=== PATIENT | female | born 1955 | race Caucasian/White ===

== ENCOUNTER → 2018-03-22 | Outpatient (CLI) | payer BC ==
--- NOTE | 2018-04-01 10:47 | MM ---
Reason for exam: screening (asymptomatic). Last mammogram was performed 2 years and 2 months ago. History: Patient is postmenopausal and has history of other cancer at age 57. Family history of breast cancer in maternal cousin at age 30 and breast cancer in aunt. Took hormonal contraceptives for 5 years beginning at age 21. Physical Findings: A clinical breast exam by your physician is recommended on an annual basis and results should be correlated with mammographic findings. MG Screening Mammo w CAD Bilateral CC and MLO view(s) were taken. Prior study comparison: February 04, 2016, mammogram, performed at [place]. January 26, 2015, mammogram, performed at [place]. There are scattered fibroglandular densities. Stable benign calcifications. There is no discrete abnormality. No significant changes when compared with prior studies. ASSESSMENT: Benign, BI-RAD 2 RECOMMENDATION: Routine screening mammogram of both breasts in 1 year.
== END | disposition home or self-care (01) ==
LOC: RADMAMWWP 09:54
PROVIDERS: ATTEND Family Medicine
DX: Z12.31 Encounter for screening mammogram for malignant neoplasm of breast (principal)
CPT/HCPCS: 77067

== ENCOUNTER → 2019-07-15 | Outpatient (CLI) | payer BC ==
--- NOTE | 2019-07-16 10:07 | MM ---
Reason for exam: screening (asymptomatic). Last mammogram was performed 1 year and 4 months ago. History: Patient is postmenopausal and has history of other cancer at age 57. Family history of breast cancer in maternal cousin at age 30 and breast cancer in aunt. Took hormonal contraceptives for 5 years beginning at age 21. Physical Findings: A clinical breast exam by your physician is recommended on an annual basis and results should be correlated with mammographic findings. MG 3D Screening Mammo W/Cad Bilateral CC and MLO view(s) were taken. Prior study comparison: March 22, 2018, bilateral MG screening mammo w CAD. February 04, 2016, mammogram, performed at [place]. There are scattered fibroglandular densities. Benign appearing bilateral calcifications. No suspicious abnormality. No significant changes when compared with prior studies. ASSESSMENT: Benign, BI-RAD 2 RECOMMENDATION: Routine screening mammogram of both breasts in 1 year.
== END | disposition home or self-care (01) ==
LOC: RADMAMWWP 08:01
PROVIDERS: ATTEND Family Medicine
DX: Z12.31 Encounter for screening mammogram for malignant neoplasm of breast (principal)
CPT/HCPCS: 77063; 77067

== ENCOUNTER → 2019-11-07 | Outpatient (CLI) | payer BC ==
[2019-11-10 07:55] VITALS: BMI 43.9
== END | disposition home or self-care (01) ==
LOC: DBWHC3 09:06
PROVIDERS: ATTEND Thoracic Surgery (Cardiothoracic Vascular Surgery)
DX: E66.01 Morbid (severe) obesity due to excess calories (principal); E08.621 Diabetes mellitus due to underlying condition with foot ulcer; L97.522 Non-pressure chronic ulcer of other part of left foot with fat layer exposed; F17.210 Nicotine dependence, cigarettes, uncomplicated
CPT/HCPCS: 97802

== ENCOUNTER → 2020-01-01 | Outpatient (CLI) | payer BC ==
--- NOTE | 2020-01-01 16:05 | CT ---
EXAMINATION TYPE: CT chest wo con DATE OF EXAM: 01/01/2020 COMPARISON: 08/03/2010 CT abdomen HISTORY: Hemoptysis, SOB CT DLP: 565.8 mGycm, Automated exposure control for dose reduction was used. CONTRAST: Performed injected with 0 mL of Isovue 300. TECHNIQUE: Axial images were obtained at 5 mm thick sections. Reconstructed images are reviewed on [employer] computer in the coronal plane. FINDINGS: Portion of the thyroid visualized is normal. There is a lobular density within the medial right middle lobe. Appears to measure 5.6 x 3.5 cm. Dumont snow, some postobstructive pneumonia could be involved. No enlarged mediastinal or hilar adenopathy is evident. The ascending aorta diameter at the level o f the main pulmonary artery is 3.4 cm. The main pulmonary artery diameter at the bifurcation is 3.2 cm. Moderate coronary artery calcification is present. Limited CT sections are obtained through the upper abdomen. Left adrenal gland is enlarged at 1.8 cm. This was present 08/03/2010. IMPRESSIONS: 1. A lobular lung mass medial right middle lobe. 2. Recommend PET/CT for additional workup
== END | disposition home or self-care (01) ==
LOC: RADCTMAIN 12:20
PROVIDERS: ATTEND Family Medicine
DX: R91.8 Other nonspecific abnormal finding of lung field (principal); R04.2 Hemoptysis
CPT/HCPCS: 71250

== ENCOUNTER → 2020-03-08 | Outpatient (CLI) | payer BC ==
--- NOTE | 2020-03-08 10:51 | MR ---
EXAMINATION TYPE: MR brain wo/w con DATE OF EXAM: 03/08/2020 COMPARISON: NONE HISTORY: Lung ca, nausea, headaches TECHNIQUE: Multiplanar, multisequence images of the brain and brainstem is performed without and with IV contras t, utilizing 10 mL intravenous Gadavist . FINDINGS: Diffusion weighted images demonstrate no evidence of a recent infarct or other diffusion ab normality. There is no extra-axial fluid collection. There are few scattered foci of T2/FLAIR hyperi ntensity in the periventricular and subcortical white matter, overall mild burden. The ventricular s ystem and cisternal spaces are normal in size and appearance. The brain volume is age appropriate. Midline structures demonstrate normal morphology. The craniocervical junction appears within normal limits. Post contrast images demonstrate no abnormal enhancement. The dural venous sinuses appear pa tent. The visualized sinuses are clear and the globes are intact. IMPRESSION: 1. No MRI evidence of metastasis. No abnormal intracranial metastasis. 2. Mild burden nonspecific white matter change, most commonly on the basis of microangiopathy.
== END | disposition home or self-care (01) ==
LOC: RADMRIMAIN 09:03
PROVIDERS: ATTEND Internal Medicine Hematology & Oncology
DX: R90.89 Other abnormal findings on diagnostic imaging of central nervous system (principal); I73.9 Peripheral vascular disease, unspecified; C34.2 Malignant neoplasm of middle lobe, bronchus or lung
CPT/HCPCS: 70553; A9585

== ENCOUNTER → 2020-05-28 | Outpatient (CLI) | payer BC ==
--- NOTE | 2020-05-28 10:27 | CT ---
EXAMINATION TYPE: CT ChestAbdPelvis w con DATE OF EXAM: 05/28/2020 COMPARISON: 01/01/2020 HISTORY: follow up lung cancer CT DLP: 2240.2 mGycm CONTRAST: CT scan of the chest, abdomen and pelvis is performed with Oral Contrast and with IV Contrast, patien t injected with 80 mL of Isovue 300. CT Chest: LUNGS: Previously noted mass within the medial segment right middle lobe persists although is much sm aller in size and currently measures 4.6 cm x 1.8 cm versus 5.6 cm x 3.5 cm. No additional nodules or masses seen. MEDIASTINUM: Thoracic aorta is of normal caliber. The heart is not enlarged. No evidence for media stinal mass or adenopathy. HILAR STRUCTURES: No evidence for mass. No hilar adenopathy is appreciated. OTHER: No significant abnormality. CONTRAST CT ABDOMEN AND PELVIS FINDINGS: LIVER/GB: Stable small subcentimeter lesion within the periphery of the anterior segment right hepa tic lobe unchanged from prior study. Cholecystectomy clips noted.. Biliary tree is of normal caliber. PANCREAS: No inflammation. No distinct mass. SPLEEN: No splenic enlargement. No lesion seen. ADRENALS: Bilateral stable adrenal nodularity. No thickening. KIDNEYS/BLADDER: No hydronephrosis. No nephrolithiasis. No distinct renal mass. BOWEL: Normal appendix. Normal bowel caliber. No inflammation. GENITAL ORGANS: No gross abnormality. LYMPH NODES: No greater than 1cm abdominal or pelvic lymph nodes are appreciated. AORTA: No significant abnormality. OSSEOUS STRUCTURES: No significant abnormality is seen. OTHER: No significant additional abnormality is seen. IMPRESSION: 1. Lobulated mass within the medial segment right middle lobe persists although is smaller in size. N o new masses or adenopathy present. No evidence for metastatic disease at this time.
== END | disposition home or self-care (01) ==
LOC: RADCTMAIN 08:12
PROVIDERS: ATTEND Internal Medicine Hematology & Oncology
DX: R91.8 Other nonspecific abnormal finding of lung field (principal); C34.2 Malignant neoplasm of middle lobe, bronchus or lung
CPT/HCPCS: 82565; 84520; 71260; 74177; 36415; Q9967

== ENCOUNTER → 2020-05-31 | Outpatient (CLI) | payer BC | END | disposition home or self-care (01) | LOC: CPPFTMAIN 12:38 | PROVIDERS: ATTEND Thoracic Surgery (Cardiothoracic Vascular Surgery) | DX: C34.2 Malignant neoplasm of middle lobe, bronchus or lung (principal); R94.2 Abnormal results of pulmonary function studies | CPT/HCPCS: 94060; 94726; 94729 ==

== ENCOUNTER → 2020-10-15 | Outpatient (CLI) | payer BC ==
--- NOTE | 2020-10-17 11:36 | PE ---
Nuclear medicine PET/CT HISTORY: Lung carcinoma, subsequent Patient received 11 mCi F-18 FDG intravenously and delayed scanning was performed from skull base to the mid thighs. Localization and attenuation correction CT scan was performed. Correlation to prior CT scan 05/28/2020 Chest and neck: There is been interval development of a small right pleural effusion. Atelectatic christa nge seen on prior CT has improved. There is no mediastinal, axillary, or hilar adenopathy. No suspici ous uptake. No cervical or supraclavicular adenopathy. There are coronary artery calcifications. ABDOMEN: There is no evident liver mass. No retroperitoneal adenopathy or adrenal uptake, left adrena l low density mass is again seen. Patient is post cholecystectomy. Uptake along the bowel and stomach is felt likely to be physiologic. No ascites. No pelvic adenopathy. Uterus and adnexal structures st able. Extensive diverticular change noted in the sigmoid colon. Osseous structures show no suspicious uptake. IMPRESSION: Interval development of a small right pleural effusion. No suspicious hypermetabolic upta ke. Interval improvement in aeration in the right middle lobe.
== END | disposition home or self-care (01) ==
LOC: RADPETMAIN 13:17
PROVIDERS: ATTEND Internal Medicine Hematology & Oncology
DX: J90 Pleural effusion, not elsewhere classified (principal); R91.8 Other nonspecific abnormal finding of lung field; C34.81 Malignant neoplasm of overlapping sites of right bronchus and lung
CPT/HCPCS: 78815; A9552

== ENCOUNTER → 2020-11-16 | Outpatient (CLI) | payer BC ==
--- NOTE | 2020-11-18 10:09 | MM ---
Reason for exam: screening (asymptomatic). Last mammogram was performed 1 year and 4 months ago. History: Patient is postmenopausal and has history of other cancer at age 57. Family history of breast cancer in maternal cousin at age 30 and breast cancer in aunt. Took hormonal contraceptives for 5 years beginning at age 21. Physical Findings: A clinical breast exam by your physician is recommended on an annual basis and results should be correlated with mammographic findings. MG 3D Screening Mammo W/Cad Bilateral CC and MLO view(s) were taken. Prior study comparison: July 15, 2019, bilateral MG 3d screening mammo w/cad. March 22, 2018, bilateral MG screening mammo w CAD. There are scattered fibroglandular densities. Previous mammotome biopsy in the left breast. No significant changes when compared with prior studies. ASSESSMENT: Benign, BI-RAD 2 RECOMMENDATION: Routine screening mammogram of both breasts in 1 year.
== END | disposition home or self-care (01) ==
LOC: RADMAMWWP 09:11
PROVIDERS: ATTEND Family Medicine
DX: Z12.31 Encounter for screening mammogram for malignant neoplasm of breast (principal)
CPT/HCPCS: 77063; 77067

== ENCOUNTER 2021-02-17 13:22 | Inpatient (IN) | payer BC ==
[2021-02-17] MEDS ORDERED: ONDANSETRON 4 MG/2 ML VIAL IVP STA (13:49)
[2021-02-17] MEDS ORDERED: ALBUTEROL HFA INHALER INHALATION STA (13:49)
--- NOTE | 2021-02-17 13:53 | ED ---
SOB HPI - General Chief Complaint: Shortness of Breath Stated Complaint: SOB,Fever,cough Time Seen by Provider: 02/17/21 13:36 Source: patient Mode of arrival: wheelchair Limitations: no limitations - History of Present Illness Initial Comments: 65-year-old female past medical history of lung cancer, in remission with previous lobectomy x2 who presents emergency room for shortness of breath. States he's had symptoms present for the past 2 weeks. Her did test positive for Covid. States that 2 days ago she was tested at [facility] for Covid however has yet to get results. Reports to a nonproductive cough, nausea and diarrhea. Denies any chest pain. No previous history of cardiac disease. Did require home oxygen after her surgery last year however states she has not used home oxygen at several months. Denies any lower extremity swelling. No history of DVT or PE. Denies any fevers. No other alleviating, precipitating or modifying factors - Related Data Home Medications Medication Instructions Recorded Confirmed Aspirin 81 mg PO HS 02/17/21 02/17/21 Cholecalciferol (Vitamin D3) 125 mcg PO DAILY 02/17/21 02/17/21 [Vitamin D3 (5000 Iu)] Hydrocortisone [Cortef] 10 mg PO BID@0800,1500 02/17/21 02/17/21 Metoprolol Tartrate [Lopressor] 50 mg PO BID 02/17/21 02/17/21 Pravastatin Sodium [Pravachol] 80 mg PO HS 02/17/21 02/17/21 metFORMIN HCL [Glucophage] 500 mg PO BID 02/17/21 02/17/21 Allergies Allergy/AdvReac Type Severity Reaction Status Date / Time codeine AdvReac Unknown Verified 02/17/21 15:33 tetracycline AdvReac Unknown Verified 02/17/21 15:33 Review of Systems ROS Statement: Those systems with pertinent positive or pertinent negative responses have been documented in the HPI. ROS Other: All systems not noted in ROS Statement are negative. Past Medical History Past Medical History: Hyperlipidemia, Hypertension Additional Past Medical History / Comment(s): lung cancer History of Any Multi-Drug Resistant Organisms: None Reported Past Surgical History: Cholecystectomy, Tonsillectomy, Tubal Ligation Additional Past Surgical History / Comment(s): lung surgery Past Psychological History: No Psychological Hx Reported Smoking Status: Former smoker Past Alcohol Use History: None Reported Past Drug Use History: None Reported General Exam Limitations: no limitations General appearance: alert, in no apparent distress Head exam: Present: atraumatic, normocephalic, normal inspection Eye exam: Present: normal appearance, PERRL, EOMI. Absent: scleral icterus, conjunctival injection, periorbital swelling ENT exam: Present: normal exam, mucous membranes moist Neck exam: Present: normal inspection. Absent: tenderness, meningismus, lymphadenopathy Respiratory exam: Present: normal lung sounds bilaterally, accessory muscle use, other (tachypnia). Absent: respiratory distress, wheezes, rales, rhonchi, stridor Cardiovascular Exam: Present: regular rate, normal rhythm, normal heart sounds. Absent: systolic murmur, diastolic murmur, rubs, gallop, clicks GI/Abdominal exam: Present: soft, normal bowel sounds. Absent: distended, tenderness, guarding, rebound, rigid Extremities exam: Present: normal inspection, full ROM, normal capillary refill. Absent: tenderness, pedal edema, joint swelling, calf tenderness Back exam: Present: normal inspection Neurological exam: Present: alert, oriented X3, CN II-XII intact Psychiatric exam: Present: normal affect, normal mood Skin exam: Present: warm, dry, intact, normal color. Absent: rash Course Vital Signs 02/17/21 02/17/21 02/17/21 13:29 13:39 15:41 Temperature 98.9 F Pulse Rate 74 75 Respiratory 18 24 22 Rate Blood Pressure 117/54 117/70 O2 Sat by Pulse 83 L 95 Oximetry Medical Decision Making - Medical Decision Making Upon arrival patient is placed into room 4. There are history and physical exam is performed. Patient's is hypoxic on room air, saturating 83%. She does require 6 L at this time. Laboratory studies are conducted. Covert swab performed. Laboratory studies are reviewed. D-dimer 1.36. Covert is detected. Chest x-ray demonstrates underlying mid and lower lung infiltrates. I did give the patient a dose of steroids. Albuterol inhaler ordered. Did recommend hospitalization because the patient's hypoxia. Did discuss the case with Veda from pulmonology. I discussed plan with the patient and she does agree. She was taken to the floor in stable condition - Lab Data Result diagrams: 02/18/21 05:30 02/18/21 05:30 Lab Results 02/17/21 02/17/21 02/17/21 Range/Units 14:23 14:23 14:23 WBC 5.1 (3.8-10.6) k/uL RBC 4.70 (3.80-5.40) m/uL Hgb 14.4 (11.4-16.0) gm/dL Hct 42.9 (34.0-46.0) % MCV 91.3 (80.0-100.0) fL MCH 30.6 (25.0-35.0) pg MCHC 33.5 (31.0-37.0) g/dL RDW 13.4 (11.5-15.5) % Plt Count 130 L (150-450) k/uL MPV 8.0 Neutrophils % 58 % Lymphocytes % 34 % Monocytes % 3 % Eosinophils % 0 % Basophils % 1 % Neutrophils # 3.0 (1.3-7.7) k/uL Lymphocytes # 1.8 (1.0-4.8) k/uL Monocytes # 0.2 (0-1.0) k/uL Eosinophils # 0.0 (0-0.7) k/uL Basophils # 0.0 (0-0.2) k/uL PT 9.7 (9.0-12.0) sec INR 0.9 (<1.2) APTT 24.7 (22.0-30.0) sec D-Dimer 1.36 H (<0.60) mg/L FEU Sodium 136 L (137-145) mmol/L Potassium 4.5 (3.5-5.1) mmol/L Chloride 101 (98-107) mmol/L Carbon Dioxide 27 (22-30) mmol/L Anion Gap 8 mmol/L BUN 19 H (7-17) mg/dL Creatinine 1.22 H (0.52-1.04) mg/dL Est GFR (CKD-EPI)AfAm 54 (>60 ml/min/1.73 sqM) Est GFR (CKD-EPI)NonAf 47 (>60 ml/min/1.73 sqM) Glucose 107 H (74-99) mg/dL Plasma Lactic Acid Vinicius (0.7-2.0) mmol/L Calcium 8.7 (8.4-10.2) mg/dL Magnesium 2.3 (1.6-2.3) mg/dL Total Bilirubin 0.5 (0.2-1.3) mg/dL AST 56 H (14-36) U/L ALT 33 (4-34) U/L Alkaline Phosphatase 60 (38-126) U/L Lactate Dehydrogenase 1267 H (313-618) U/L C-Reactive Protein 75.9 H (<10.0) mg/L Total Protein 6.6 (6.3-8.2) g/dL Albumin 3.7 (3.5-5.0) g/dL Procalcitonin (0.02-0.09) ng/mL Coronavirus (PCR) (Not Detectd) 02/17/21 02/17/21 02/17/21 Range/Units 14:23 14:23 14:23 WBC (3.8-10.6) k/uL RBC (3.80-5.40) m/uL Hgb (11.4-16.0) gm/dL Hct (34.0-46.0) % MCV (80.0-100.0) fL MCH (25.0-35.0) pg MCHC (31.0-37.0) g/dL RDW (11.5-15.5) % Plt Count (150-450) k/uL MPV Neutrophils % % Lymphocytes % % Monocytes % % Eosinophils % % Basophils % % Neutrophils # (1.3-7.7) k/uL Lymphocytes # (1.0-4.8) k/uL Monocytes # (0-1.0) k/uL Eosinophils # (0-0.7) k/uL Basophils # (0-0.2) k/uL PT (9.0-12.0) sec INR (<1.2) APTT (22.0-30.0) sec D-Dimer (<0.60) mg/L FEU Sodium (137-145) mmol/L Potassium (3.5-5.1) mmol/L Chloride (98-107) mmol/L Carbon Dioxide (22-30) mmol/L Anion Gap mmol/L BUN (7-17) mg/dL Creatinine (0.52-1.04) mg/dL Est GFR (CKD-EPI)AfAm (>60 ml/min/1.73 sqM) Est GFR (CKD-EPI)NonAf (>60 ml/min/1.73 sqM) Glucose (74-99) mg/dL Plasma Lactic Acid Vinicius 1.2 (0.7-2.0) mmol/L Calcium (8.4-10.2) mg/dL Magnesium (1.6-2.3) mg/dL Total Bilirubin (0.2-1.3) mg/dL AST (14-36) U/L ALT (4-34) U/L Alkaline Phosphatase (38-126) U/L Lactate Dehydrogenase (313-618) U/L C-Reactive Protein (<10.0) mg/L Total Protein (6.3-8.2) g/dL Albumin (3.5-5.0) g/dL Procalcitonin 0.17 H (0.02-0.09) ng/mL Coronavirus (PCR) Detected A (Not Detectd) - EKG Data EKG Comments: EKG demonstrates a normal sinus rhythm with a ventricular rate of 69. WA interval 146. QRS E4. QTC 441. No acute ST segment elevations or depressions Disposition Clinical Impression: COVID-19, Hypoxia Disposition: ADMITTED IP TO THIS HOSP Condition: Serious Is patient prescribed a controlled substance at d/c from ED?: No Decision to Admit Reason: Admit from EC Decision Date: 02/17/21 Decision Time: 15:52
--- NOTE | 2021-02-17 14:25 | XR ---
EXAMINATION TYPE: XR chest 1V portable DATE OF EXAM: 02/17/2021 Comparison: None Clinical History: 65 year-old female shortness of breath, Suspected COVID-19 pneumonia Findings: Large patient body habitus cast extensive hazy densities over the lungs. Heart borderline to mildly e nlarged. Mid and lower lung opacities could relate to large body habitus. Given concern for occult pn eumonia, underlying infiltrates are suspected. Impression: Limitations due to the large patient body habitus. Underlying mid and lower lung infiltrates are susp ected.
[2021-02-17] MEDS: DEXAMETHASONE SOD PHOSPHATE 10 MG/ML 1 ML VIAL IV SCH (14:31)
[2021-02-17] MEDS: SODIUM CHLORIDE 0.9% 1,000 ML IV SCH (14:31)
[2021-02-17 14:51] LABS: Basophils % (A) 1 %; Eosinophils % (A) 0 %; HCT 42.9 % (34.0-46.0); HGB 14.4 gm/dL (11.4-16.0); Lymphocytes # (A) 1.8 k/uL (1.0-4.8); Lymphocytes % (A) 34 %; MCH 30.6 pg (25.0-35.0); MCHC 33.5 g/dL (31.0-37.0); MCV 91.3 fL (80.0-100.0); Monocytes # (A) 0.2 k/uL (0-1.0); Monocytes % (A) 3 %; Neutrophils % (A) 58 %; Platelet Count 130 k/uL (150-450); RDW 13.4 % (11.5-15.5); WBC 5.1 k/uL (3.8-10.6)
[2021-02-17 15:03] LABS: Albumin 3.7 g/dL (3.5-5.0); C Reactive Protein 75.9 mg/L (<10.0); Calcium 8.7 mg/dL (8.4-10.2); Magnesium 2.3 mg/dL (1.6-2.3); Potassium 4.5 mmol/L (3.5-5.1); Total Bilirubin 0.5 mg/dL (0.2-1.3); Total Protein 6.6 g/dL (6.3-8.2)
[2021-02-17 15:12] LABS: INR 0.9 (<1.2); Prothrombin Time 9.7 sec (9.0-12.0)
[2021-02-17 15:13] LABS: Partial Thromboplastin Time 24.7 sec (22.0-30.0)
[2021-02-17] MEDS ORDERED: NALOXONE 0.4 MG/ML 1 ML VIAL IV PRN (15:52)
--- NOTE | 2021-02-17 17:42 | P.CNPUL ---
History of Present Illness Consult date: 02/17/21 Requesting physician: Melissa Friedman Reason for consult: dyspnea, hypoxemia, abnormal CXR/CT Chief complaint: Shortness of breath, hypoxemia, cough, nausea and diarrhea History of present illness: This is a 65-year-old white female patient with past medical history of lung cancer diagnosed in February 2020 status post right middle lobe and right lower lobectemy by Dr. Duran at the [facility] last year, followed by chemotherapy. And patient has been in remission since. She is not normally oxygen dependent, she is a former smoker. She follows with Dr. Hawthorne. Does not have a computer system specialist that she goes to on a regular basis, past medical history is positive for hypertension and hyperlipidemia. Patient presented to the emergency department on 02/17/2021 with worsening shortness of breath, nonproductive cough, nausea and diarrhea, she states her symptoms started 2 weeks ago, her has been diagnosed with COVID 19. No chest pain, no lower extremity swelling, no calf tenderness, no fever, chest x-ray shows extensive hazy densities over the lungs, mild cardiomegaly, mid and lower lung opacities suspected underlying infiltrates. COVID 19 [facility] white blood cell count of 5.1, hemoglobin of 14.4, platelet count is 130, d-dimer is 1.36, sodium is 136, the rest of electrolytes were within normal limits, BUN is 19 creatinine is 1.2, LDH was 1267, CRP is 75.9. Currently requiring 6 L of supplemental oxygen, pulse ox is 95%, hemodynamically she is stable, she is afebrile, she feels short of breath especially on exertion, but appears to be in no acute distress. She is receiving 0.9 normal saline at a rate of 75 ML per hour, she was started on dexamethasone milligrams daily Review of Systems All systems: negative Constitutional: Denies chills, Denies fever Eyes: denies blurred vision, denies pain Ears, nose, mouth and throat: Denies headache, Denies sore throat Cardiovascular: Denies chest pain, Denies shortness of breath Respiratory: Reports dyspnea, Denies cough Gastrointestinal: Denies abdominal pain, Denies diarrhea, Denies nausea, Denies vomiting Genitourinary: Denies dysuria, Denies hematuria Musculoskeletal: Denies myalgias Integumentary: Denies pruritus, Denies rash Neurological: Denies numbness, Denies weakness Psychiatric: Denies anxiety, Denies depression Endocrine: Denies fatigue, Denies weight change Past Medical History Past Medical History: Hyperlipidemia, Hypertension Additional Past Medical History / Comment(s): lung cancer History of Any Multi-Drug Resistant Organisms: None Reported Past Surgical History: Cholecystectomy, Tonsillectomy, Tubal Ligation Additional Past Surgical History / Comment(s): lung surgery Past Psychological History: No Psychological Hx Reported Smoking Status: Former smoker Past Alcohol Use History: None Reported Past Drug Use History: None Reported Medications and Allergies Home Medications Medication Instructions Recorded Confirmed Type Aspirin 81 mg PO HS 02/17/21 02/17/21 History Cholecalciferol (Vitamin D3) 125 mcg PO DAILY 02/17/21 02/17/21 History [Vitamin D3 (5000 Iu)] Hydrocortisone [Cortef] 10 mg PO BID@0800,1500 02/17/21 02/17/21 History Metoprolol Tartrate [Lopressor] 50 mg PO BID 02/17/21 02/17/21 History Pravastatin Sodium [Pravachol] 80 mg PO HS 02/17/21 02/17/21 History metFORMIN HCL [Glucophage] 500 mg PO BID 02/17/21 02/17/21 History Allergies Allergy/AdvReac Type Severity Reaction Status Date / Time codeine AdvReac Unknown Verified 02/17/21 15:33 tetracycline AdvReac Unknown Verified 02/17/21 15:33 Physical Exam Vitals: Vital Signs Temp Pulse Resp BP Pulse Ox 02/17/21 15:41 75 22 117/70 95 02/17/21 13:39 24 02/17/21 13:29 98.9 F 74 18 117/54 83 L Intake and Output 02/17/21 02/17/21 02/17/21 06:59 14:59 22:59 Other: Weight 122.47 kg GENERAL EXAM: Alert, very pleasant, 65-year-old white female on 6 L of oxygen a pulse ox of 95% comfortable in no apparent distress. HEAD: Normocephalic/atraumatic. EYES: Normal reaction of pupils, equal size. Conjunctiva pink, sclera white. NOSE: Clear with pink turbinates. THROAT: No erythema or exudates. NECK: No masses, no JVD, no thyroid enlargement, no adenopathy. CHEST: No chest wall deformity. Symmetrical expansion. LUNGS: Equal air entry with diffuse crackles bilaterally CVS: Regular rate and rhythm, normal S1 and S2, no gallops, no murmurs, no rubs ABDOMEN: Soft, nontender. No hepatosplenomegaly, normal bowel sounds, no guarding or rigidity. EXTREMITIES: No clubbing, no edema, no cyanosis, 2+ pulses and upper and lower extremities. MUSCULOSKELETAL: Muscle strength and tone normal. SPINE: No scoliosis or deformity SKIN: No rashes CENTRAL NERVOUS SYSTEM: Alert and oriented -3. No focal deficits, tone is normal in all 4 extremities. PSYCHIATRIC: Alert and oriented -3. Appropriate affect. Intact judgment and insight. Results - Laboratory Findings CBC and BMP: 02/17/21 14:23 02/17/21 14:23 PT/INR, D-dimer PT 9.7 sec (9.0-12.0) 02/17/21 14:23 INR 0.9 (<1.2) 02/17/21 14:23 D-Dimer 1.36 mg/L FEU (<0.60) H 02/17/21 14:23 Abnormal lab findings: Abnormal Labs 02/17/21 02/17/21 02/17/21 14:23 14:23 14:23 Plt Count 130 L D-Dimer 1.36 H Sodium 136 L BUN 19 H Creatinine 1.22 H Glucose 107 H AST 56 H Lactate Dehydrogenase 1267 H C-Reactive Protein 75.9 H Coronavirus (PCR) 02/17/21 14:23 Plt Count D-Dimer Sodium BUN Creatinine Glucose AST Lactate Dehydrogenase C-Reactive Protein Coronavirus (PCR) Detected A - Diagnostic Findings Chest x-ray: report reviewed, image reviewed Assessment and Plan Plan: Assessment: #1. Acute hypoxic respiratory failure related to acute COVID19 pneumonia, onset of symptoms 2 weeks prior to presentation, patient is out of the window for Remdesivir #2. Increased inflammatory markers related to the above #3. Increased d-dimer, possibly related to hypercoagulable state related to acute COVID 19 pneumonia, will follow d-dimer on a daily basis, creatinine is abnormal at this time, we'll consider CT chest if it remains elevated and when creatinine normalizes #4. Underlying COPD, with a baseline FEV1 of 78% predicted, not oxygen dependent at baseline #5. Diabetes mellitus #6. History of lung cancer, status post right middle and right lower lobectomy, patient was diagnosed in February 2020, she had her surgery at [facility], follows with Dr. Hawthorne and patient did have chemotherapy following her surgery #7. Hypertension #8. Hyperlipidemia #9. Former smoker Plan: Continue steroids, continue IV hydration, patient is outside the window for Remdesivir, we'll start the patient on Lovenox 40 mg daily, will follow d-dimer on a daily basis, we'll consider CTA chest once renal profile becomes normal and if d-dimer remains elevated, add vitamins. We'll follow inflammatory markers and chest x-ray continue to follow I performed a history & physical examination of the patient and discussed their management with my nurse practitioner, Veda Gates. I reviewed the nurse practitioner's note and agree with the documented findings and plan of care. L rivera sounds are positive for diminished breath sounds. The findings and the impression was discussed with the patient. I attest to the documentation by the nurse practitioner. Time with Patient: Greater than 30
[2021-02-17] MEDS: ALBUTEROL HFA INHALER INHALATION SCH (20:29)
[2021-02-17] MEDS: METOPROLOL TARTRATE 50 MG TAB PO SCH (20:37)
[2021-02-17] MEDS: ASPIRIN 81 MG PO SCH (20:37)
[2021-02-17] MEDS: PRAVASTATIN SODIUM 80 MG TAB PO SCH (22:11)
[2021-02-18] MEDS: SODIUM CHLORIDE 0.9% 1,000 ML IV SCH ×2 (05:33→14:28)
--- NOTE | 2021-02-18 08:58 | XR ---
EXAMINATION TYPE: XR chest 1V portable DATE OF EXAM: 02/18/2021 COMPARISON: 02/17/2021 HISTORY: Shortness of breath TECHNIQUE: Single frontal view of the chest is obtained. FINDINGS: Bilateral infiltrates are stable with small right effusion. No pneumothorax. Heart size st able. Osseous structures intact. IMPRESSION: Bilateral infiltrates are stable.
[2021-02-18] MEDS ORDERED: DEXAMETHASONE SOD PHOSPHATE 10 MG/ML 1 ML VIAL IV SCH (09:00)
[2021-02-18] MEDS: ALBUTEROL HFA INHALER INHALATION SCH ×4 (09:18→20:53)
[2021-02-18] MEDS: CHOLECALCIFEROL 25 MCG (1000 IU) TABLET PO SCH (09:44)
[2021-02-18] MEDS: HYDROCORTISONE 10 MG TAB PO SCH ×2 (09:45→14:28)
[2021-02-18] MEDS: METOPROLOL TARTRATE 50 MG TAB PO SCH ×2 (09:45→22:22)
[2021-02-18] MEDS: DEXAMETHASONE SOD PHOSPHATE 10 MG/ML 1 ML VIAL IV SCH ×2 (09:45→09:46)
[2021-02-18 11:35] LABS: HCT 47.2 % (37.2-46.3); HGB 14.2 g/dL (12.0-15.0); MCHC 30.1 g/dL (32.0-37.0); MCV 96.5 fL (80.0-97.0); Mean Platelet Volume 10.9 fL (9.5-12.2); Platelet Count 167 X 10*3/uL (140-440); RBC 4.89 X 10*6/uL (4.10-5.20); RDW 13.2 % (11.5-14.5); WBC 6.36 X 10*3/uL (4.50-10.00)
--- NOTE | 2021-02-18 11:57 | P.PN ---
Subjective Progress Note Date: 02/18/21 Principal diagnosis: Acute hypoxic respiratory failure secondary to acute covid 19 pneumonia This is a 65-year-old white female patient with past medical history of lung cancer diagnosed in February 2020 status post right middle lobe and right lower lobectemy by Dr. Duran at the [facility] last year, followed by chemotherapy. And patient has been in remission since. She is not normally oxygen dependent, she is a former smoker. She follows with Dr. Hawthorne. Does not have a network support specialist that she goes to on a regular basis, past medical history is positive for hypertension and hyperlipidemia. Patient presented to the emergency department on 02/17/2021 with worsening shortness of breath, nonproductive cough, nausea and diarrhea, she states her symptoms s tarted 2 weeks ago, her has been diagnosed with COVID 19. No chest pain, no lower extremity swelling, no calf tenderness, no fever, chest x-ray shows extensive hazy densities over the lungs, mild cardiomegaly, mid and lower lung opacities suspected underlying infiltrates. COVID 19 PCR was positive. Patient's labs showed white blood cell count of 5.1, hemoglobin of 14.4, platelet count is 130, d-dimer is 1.36, sodium is 136, the rest of electrolytes were within normal limits, BUN is 19 creatinine is 1.2, LDH was 1267, CRP is 75.9. Currently requiring 6 L of supplemental oxygen, pulse ox is 95%, hemodynamically she is stable, she is afebrile, she feels short of breath especially on exertion, but appears to be in no acute distress. She is receiving 0.9 normal saline at a rate of 75 ML per hour, she was started on dexamethasone milligrams daily Patient was reevaluated today on 02/18/2021, patient is about the same compared to yesterday, remains on 6 L high flow nasal cannula, O2 saturation is 88% to 92%. Patient is sitting at a bedside chair, does not seem to be in any distress. Patient is on the Covid 19 cocktail. And so far she is doing fairly well. CBC is relatively normal. D-dimer is 1.36. Creatinine is slightly elevated at 1.22. C-reactive protein was 76 and her LDH was 1267 yesterday on admission. Objective - Vital Signs Vital signs: Vital Signs Temp 97.6 F 02/18/21 08:31 Pulse 79 02/18/21 08:31 Resp 20 02/18/21 08:31 BP 116/55 02/18/21 08:31 Pulse Ox 88 L 02/18/21 08:31 Intake & Output 02/17/21 02/18/21 02/18/21 18:59 06:59 18:59 Intake Total 240 Balance 240 Weight 122.47 kg Intake: Oral 240 Other: Voiding Method Toilet - Exam Physical Exam: Revealed a 65-year-old female obese, on 6 L nasal cannula, in no distress. Head: Atraumatic, normocephalic. HEENT:[Neck is supple.] [No neck masses.] [No thyromegaly.] [No JVD.] Chest: [Symmetrical chest expansion, diffuse crackles bilaterally at the bases. Cardiac Exam: [Normal S1 and S2, no S3 gallop, no murmur.] Abdomen: [Soft, nontender, no megaly, no rebound, no guarding, normal bowel sounds.] Extremities: [No clubbing, no edema, no cyanosis.] Neurological Exam: [No focal neurologic deficit.] Alert and oriented 3. Psychiatric: Normal mood affect and normal mental status examination. Skin: No rashes. Musculoskeletal: No deformities noted limitation range of motion - Labs CBC & Chem 7: 02/18/21 05:30 02/17/21 14:23 Labs: Abnormal Lab Results - Last 24 Hours (Table) 02/17/21 02/17/21 02/17/21 Range/Units 14:23 14:23 14:23 Hct (37.2-46.3) % MCHC (32.0-37.0) g/dL Plt Count 130 L (150-450) k/uL D-Dimer 1.36 H (<0.60) mg/L FEU Sodium 136 L (137-145) mmol/L BUN 19 H (7-17) mg/dL Creatinine 1.22 H (0.52-1.04) mg/dL Glucose 107 H (74-99) mg/dL AST 56 H (14-36) U/L Lactate Dehydrogenase 1267 H (313-618) U/L C-Reactive Protein 75.9 H (<10.0) mg/L Procalcitonin (0.02-0.09) ng/mL Coronavirus (PCR) (Not Detectd) 02/17/21 02/17/21 02/18/21 Range/Units 14:23 14:23 05:30 Hct (37.2-46.3) % MCHC (32.0-37.0) g/dL Plt Count (150-450) k/uL D-Dimer 1.36 H (<0.60) mg/L FEU Sodium (137-145) mmol/L BUN (7-17) mg/dL Creatinine (0.52-1.04) mg/dL Glucose (74-99) mg/dL AST (14-36) U/L Lactate Dehydrogenase (313-618) U/L C-Reactive Protein (<10.0) mg/L Procalcitonin 0.17 H (0.02-0.09) ng/mL Coronavirus (PCR) Detected A (Not Detectd) 02/18/21 Range/Units 05:30 Hct 47.2 H (37.2-46.3) % MCHC 30.1 L (32.0-37.0) g/dL Plt Count (150-450) k/uL D-Dimer (<0.60) mg/L FEU Sodium (137-145) mmol/L BUN (7-17) mg/dL Creatinine (0.52-1.04) mg/dL Glucose (74-99) mg/dL AST (14-36) U/L Lactate Dehydrogenase (313-618) U/L C-Reactive Protein (<10.0) mg/L Procalcitonin (0.02-0.09) ng/mL Coronavirus (PCR) (Not Detectd) Assessment and Plan Assessment: Impression: Acute hypoxic respiratory failure secondary to acute covid 19 pneumonia, patient is out of the window for REM. Elevated inflammatory markers secondary to above. History of underlying COPD but relatively stable. History of bronchogenic carcinoma previous right middle and right lower lobectomy, had previous surgery at [facility]. This was in February. Benign essential hypertension Former smoker. Recommendation: Continue present supportive care measures. Continue Lovenox empirically. And for prophylactic measures Continue to monitor inflammatory markers. No need for a CT angiogram of the chest on this patient today. Will follow. Time with Patient: Less than 30
[2021-02-18 12:23] LABS: Glucose,Whole Blood 167 mg/dL (75-99)
[2021-02-18] MEDS: ASCORBIC ACID 500 MG TAB PO SCH (12:41)
[2021-02-18] MEDS: FAMOTIDINE 20 MG TAB PO SCH ×2 (12:41→22:21)
[2021-02-18] MEDS: INSULIN ASPART (NovoLOG) 100 UNIT/ML VIAL SQ SCH ×4 (12:42→22:21)
[2021-02-18] MEDS: metFORMIN 500 MG TAB PO SCH ×2 (12:42→22:22)
[2021-02-18] MEDS: ZINC SULFATE 220 MG CAP PO SCH (12:42)
[2021-02-18 13:03] LABS: Basophils # (A) 0.02 X 10*3/uL (0.00-0.10); Basophils % (A) 0.3 %; Eosinophils # (A) 0 X 10*3/uL (0.04-0.35); Eosinophils % (A) 0 %; Lymphocytes # (A) 2.84 X 10*3/uL (0.90-5.00); Lymphocytes % (A) 44.7 %; Monocytes # (A) 0.26 X 10*3/uL (0.20-1.00); Monocytes % (A) 4.1 %; Neutrophils % (A) 50.3 %
[2021-02-18 17:13] LABS: African American GFR (CKD) 55.3 (60.0-200.0); Anion Gap 16.8 mmol/L (4.00-12.00); BUN/Creat Ratio 15.83 Ratio (12.00-20.00); C Reactive Protein 8.5 mg/dL (0.0-0.8); Calcium 9.2 mg/dL (8.7-10.3); Carbon Dioxide 23.2 mmol/L (21.6-31.8); Non-African American GFR(CKD) 47.7 (60.0-200.0); Potassium 4.1 mmol/L (3.5-5.5)
--- NOTE | 2021-02-18 17:13 | P.HPIM ---
History of Present Illness H&P Date: 02/18/21 Chief Complaint: Short of breath History of presenting complaint: This is a very pleasant 65-year-old patient of Dr. rios. Chronic stable medical conditions include hypertension, hyperlipidemia, morbid obesity. Patient underwent right middle and right lower lobe lung lobectomy by Dr. Duran at [facility]. This was followed by chemotherapy. Patient had been in remission since then. Patient for 2 weeks has been having increasingly short of breath cough some chills. Patient's has a diagnoses of COVID. Denies any loss of smell or taste. No sore throat. Does feel exhausted. Decreased appetite. Patient's come back testing positive for COVID 19 pneumonia. Pulse ox on presentation was 83% Review of systems: GEN.: Tired decreased appetite EYES: None HEENT: Sore throat NECK: None RESPIRATORY: As above CARDIOVASCULAR: None GASTROINTESTINAL: None GENITOURINARY: None MUSCULOSKELETAL: None LYMPHATICS: None HEMATOLOGICAL: None PSYCHIATRY: None NEUROLOGICAL: None Past medical history to include: Hypertension, hyperlipidemia, lung cancer with removal of right middle and lower lobe lobectomy at [facility] in 2023 by chemotherapy. Diabetes type 2, Social history: . No alcohol. Does smoke in the past. A pack a day for close to 43 years. Family history: Reviewed, noncontributory to presentation Physical examination: VITAL SIGNS: 98.9, 74, 18, 117/54, 93% on room air GENERAL: BMI 49.4, laying in bed, tired short of breath. EYES: Pupils equal. Conjunctiva normal. HEENT: External appearance of nose and ears normal, oral cavity grossly normal. NECK: JVD not raised; masses not palpable. HEART: First and second heart sounds are normal; no edema. LUNGS: Respiratory rate increased, diminished breath sounds. ABDOMEN: Soft, nontender, liver spleen not palpable, no masses palpable. PSYCH: Alert and oriented x3; mood and affect normal. NEUROLOGICAL: Cranial nerves grossly intact; no facial asymmetry, power and sensation grossly intact. LYMPHATICS: No lymph nodes palpable in the axilla and neck INVESTIGATIONS, reviewed in the clinical context: WBC 6.3 hemoglobin 14.2 platelets 167 d-dimer 1.36 Potassium 4.5 bun 19 creatinine 1.2 to CRP 75.9 procalcitonin 0.17 Coronavirus [PCR]-detected EKG tracing personally reviewed by me-normal sinus rhythm Chest x-ray film personally reviewed by me-bilateral infiltrates Assessment and plan: -Acute bilateral COVID 19 pneumonia with symptoms present for close to 2 weeks. Patient started on vitamin C vitamin D IV Decadron Pepcid zinc. Pulmonary cons ulted -Acute hypoxic respiratory failure secondary to COVID 19 pneumonia. Patient is currently on 6 L of nasal cannula -Morbid obesity BMI 49.4 Weight loss measures and follow-up with PCP as an outpatient -Diabetes mellitus type 2 on oral hypoglycemic Continue with metformin. Expect Accu-Cheks to go up in view of the steroids. -Hyperlipidemia Continue with Pravachol -Essential hypertension Continue with Lopressor Care was discussed with the patient. Encouraged to sit up in a chair. Use incentive spirometry. Follow CRP and d-dimer. IV fluids Given the complexity and severity of patient's condition expect the patient to be in the hospital at least for 2 overnights Past Medical History Past Medical History: Hyperlipidemia, Hypertension Additional Past Medical History / Comment(s): lung cancer History of Any Multi-Drug Resistant Organisms: None Reported Past Surgical History: Cholecystectomy, Tonsillectomy, Tubal Ligation Additional Past Surgical History / Comment(s): lung surgery Past Anesthesia/Blood Transfusion Reactions: No Reported Reaction Past Psychological History: No Psychological Hx Reported Smoking Status: Former smoker Past Alcohol Use History: None Reported Past Drug Use History: None Reported Medications and Allergies Home Medications Medication Instructions Recorded Confirmed Type Aspirin 81 mg PO HS 02/17/21 02/17/21 History Cholecalciferol (Vitamin D3) 125 mcg PO DAILY 02/17/21 02/17/21 History [Vitamin D3 (5000 Iu)] Hydrocortisone [Cortef] 10 mg PO BID@0800,1500 02/17/21 02/17/21 History Metoprolol Tartrate [Lopressor] 50 mg PO BID 02/17/21 02/17/21 History Pravastatin Sodium [Pravachol] 80 mg PO HS 02/17/21 02/17/21 History metFORMIN HCL [Glucophage] 500 mg PO BID 02/17/21 02/17/21 History Allergies Allergy/AdvReac Type Severity Reaction Status Date / Time codeine AdvReac Unknown Verified 02/17/21 15:33 tetracycline AdvReac Unknown Verified 02/17/21 15:33 Physical Exam Vitals: Vital Signs Temp Pulse Pulse Pulse Resp BP BP 02/18/21 08:31 97.6 F 79 20 116/55 02/18/21 01:37 97.7 F 69 18 130/66 02/17/21 20:00 18 02/17/21 19:40 98.1 F 81 18 121/76 02/17/21 18:03 98.0 F 74 18 122/87 02/17/21 15:41 75 22 117/70 02/17/21 13:39 24 02/17/21 13:29 98.9 F 74 18 117/54 Pulse Ox 02/18/21 08:31 88 L 02/18/21 01:37 92 L 02/17/21 20:00 02/17/21 19:40 87 L 02/17/21 18:03 99 02/17/21 15:41 95 02/17/21 13:39 02/17/21 13:29 83 L Intake and Output 02/17/21 02/18/21 02/18/21 22:59 06:59 14:59 Intake Total 240 Balance 240 Intake: Oral 240 Other: Voiding Method Toilet Weight 122.47 kg Results CBC & Chem 7: 02/18/21 05:30 02/17/21 14:23 Labs: Abnormal Lab Results - Last 24 Hours (Table) 02/17/21 02/17/21 02/17/21 Range/Units 14:23 14:23 14:23 Plt Count 130 L (150-450) k/uL D-Dimer 1.36 H (<0.60) mg/L FEU Sodium 136 L (137-145) mmol/L BUN 19 H (7-17) mg/dL Creatinine 1.22 H (0.52-1.04) mg/dL Glucose 107 H (74-99) mg/dL AST 56 H (14-36) U/L Lactate Dehydrogenase 1267 H (313-618) U/L C-Reactive Protein 75.9 H (<10.0) mg/L Procalcitonin (0.02-0.09) ng/mL Coronavirus (PCR) (Not Detectd) 02/17/21 02/17/21 02/18/21 Range/Units 14:23 14:23 05:30 Plt Count (150-450) k/uL D-Dimer 1.36 H (<0.60) mg/L FEU Sodium (137-145) mmol/L BUN (7-17) mg/dL Creatinine (0.52-1.04) mg/dL Glucose (74-99) mg/dL AST (14-36) U/L Lactate Dehydrogenase (313-618) U/L C-Reactive Protein (<10.0) mg/L Procalcitonin 0.17 H (0.02-0.09) ng/mL Coronavirus (PCR) Detected A (Not Detectd) Thrombosis Risk Factor Assmnt - Choose All That Apply Each Factor Represents 1 point: Obesity (BMI >25) Other Risk Factors: No Other congenital or acquired thrombophilia - If yes, enter type in comment: No Thrombosis Risk Factor Assessment Total Risk Factor Score: 1 Thrombosis Risk Factor Assessment Level: Low Risk
[2021-02-18 17:25] LABS: Glucose,Whole Blood 153 mg/dL (75-99)
[2021-02-18 22:11] LABS: Glucose,Whole Blood 189 mg/dL (75-99)
[2021-02-18] MEDS: ZOLPIDEM 5 MG TAB PO PRN (22:22)
[2021-02-18] MEDS: ASPIRIN 81 MG PO SCH (22:22)
[2021-02-18] MEDS: PRAVASTATIN SODIUM 80 MG TAB PO SCH (22:22)
[2021-02-19] MEDS: SODIUM CHLORIDE 0.9% 1,000 ML IV SCH ×2 (05:25→22:01)
[2021-02-19 07:48] LABS: Glucose,Whole Blood 127 mg/dL (75-99)
[2021-02-19] MEDS: ALBUTEROL HFA INHALER INHALATION SCH ×4 (07:52→19:08)
[2021-02-19] MEDS: INSULIN ASPART (NovoLOG) 100 UNIT/ML VIAL SQ SCH ×4 (08:35→22:01)
[2021-02-19] MEDS: FAMOTIDINE 20 MG TAB PO SCH ×2 (08:36→22:01)
[2021-02-19] MEDS: ZINC SULFATE 220 MG CAP PO SCH (08:36)
[2021-02-19] MEDS: CHOLECALCIFEROL 25 MCG (1000 IU) TABLET PO SCH (08:36)
[2021-02-19] MEDS: METOPROLOL TARTRATE 50 MG TAB PO SCH ×2 (08:36→22:02)
[2021-02-19] MEDS: ASCORBIC ACID 500 MG TAB PO SCH (08:36)
[2021-02-19] MEDS: DEXAMETHASONE SOD PHOSPHATE 10 MG/ML 1 ML VIAL IV SCH (08:36)
[2021-02-19] MEDS: metFORMIN 500 MG TAB PO SCH ×3 (08:37→22:04)
--- NOTE | 2021-02-19 10:41 | P.PN ---
Subjective Progress Note Date: 02/19/21 Principal diagnosis: Acute hypoxic respiratory failure secondary to acute covid 19 pneumonia This is a 65-year-old white female patient with past medical history of lung cancer diagnosed in February 2020 status post right middle lobe and right lower lobectemy by Dr. Duran at the [facility] last year, followed by chemotherapy. And patient has been in remission since. She is not normally oxygen dependent, she is a former smoker. She follows with Dr. Hawthorne. Does not have a retail presentation specialist that she goes to on a regular basis, past medical history is positive for hypertension and hyperlipidemia. Patient presented to the emergency department on 02/17/2021 with worsening shortness of breath, nonproductive cough, nausea and diarrhea, she states her symptoms s tarted 2 weeks ago, her has been diagnosed with COVID 19. No chest pain, no lower extremity swelling, no calf tenderness, no fever, chest x-ray shows extensive hazy densities over the lungs, mild cardiomegaly, mid and lower lung opacities suspected underlying infiltrates. COVID 19 PCR was positive. Patient's labs showed white blood cell count of 5.1, hemoglobin of 14.4, platelet count is 130, d-dimer is 1.36, sodium is 136, the rest of electrolytes were within normal limits, BUN is 19 creatinine is 1.2, LDH was 1267, CRP is 75.9. Currently requiring 6 L of supplemental oxygen, pulse ox is 95%, hemodynamically she is stable, she is afebrile, she feels short of breath especially on exertion, but appears to be in no acute distress. She is receiving 0.9 normal saline at a rate of 75 ML per hour, she was started on dexamethasone milligrams daily Patient was reevaluated today on 02/18/2021, patient is about the same compared to yesterday, remains on 6 L high flow nasal cannula, O2 saturation is 88% to 92%. Patient is sitting at a bedside chair, does not seem to be in any distress. Patient is on the Covid 19 cocktail. And so far she is doing fairly well. CBC is relatively normal. D-dimer is 1.36. Creatinine is slightly elevated at 1.22. C-reactive protein was 76 and her LDH was 1267 yesterday on admission. Reevaluated today on 02/19/2021, patient is feeling a bit worse today, she is having more symptoms of shortness of breath, she is now on 16 L high flow cannula, and her O2 saturation is in the high 80s, patient was on 6 L yesterday, and now she is having some slightly blood-tinged sputum. Patient will have a venous Doppler today, we'll recommend a VQ scan, may even recommend a CT angiogram of the chest to rule out pulmonary embolism. Patient had a creatinine of 1.22 on admission, and I have ordered a repeat basic metabolic profile this morning. In the meantime I will go ahead and start the patient on Lovenox 40 mg subcu daily. Objective - Vital Signs Vital signs: Vital Signs Temp 97.6 F 02/19/21 08:00 Pulse 104 H 02/19/21 08:00 Resp 22 02/19/21 08:00 BP 126/77 02/19/21 08:00 Pulse Ox 86 L 02/19/21 08:00 Intake & Output 02/18/21 02/19/21 02/19/21 18:59 06:59 18:59 Intake Total 240 Balance 240 Intake: Oral 240 Other: Voiding Method Toilet # Voids 3 # Bowel Movements 3 - Exam Physical Exam: Revealed a 65-year-old female obese, on 15 L high flow cannula. Head: Atraumatic, normocephalic. HEENT:[Neck is supple.] [No neck masses.] [No thyromegaly.] [No JVD.] Chest: [Symmetrical chest expansion, diffuse crackles bilaterally at the bases. Cardiac Exam: [Normal S1 and S2, no S3 gallop, no murmur.] Abdomen: [Soft, nontender, no megaly, no rebound, no guarding, normal bowel sounds.] Extremities: [No clubbing, no edema, no cyanosis.] Neurological Exam: [No focal neurologic deficit.] Alert and oriented 3. Psychiatric: Normal mood affect and normal mental status examination. Skin: No rashes. Musculoskeletal: No deformities noted limitation range of motion - Labs CBC & Chem 7: 02/18/21 05:30 02/18/21 05:30 Labs: Abnormal Lab Results - Last 24 Hours (Table) 02/18/21 02/18/21 02/18/21 Range/Units 05:30 05:30 12:09 Hct 47.2 H (37.2-46.3) % MCHC 30.1 L (32.0-37.0) g/dL Eosinophils # 0 L (0.04-0.35) X 10*3/uL D-Dimer (<0.60) mg/L FEU Sodium 146 H (135-145) mmol/L Anion Gap 16.80 H (4.00-12.00) mmol/L Est GFR (CKD-EPI)AfAm 55.3 L (60.0-200.0) Est GFR (CKD-EPI)NonAf 47.7 L (60.0-200.0) Glucose 154 H (70-110) mg/dL POC Glucose (mg/dL) 167 H (75-99) mg/dL Lactate Dehydrogenase 521 H (120-246) U/L C-Reactive Protein 8.5 H (0.0-0.8) mg/dL 02/18/21 02/18/21 02/19/21 Range/Units 17:22 22:10 06:39 Hct (37.2-46.3) % MCHC (32.0-37.0) g/dL Eosinophils # (0.04-0.35) X 10*3/uL D-Dimer 3.69 H (<0.60) mg/L FEU Sodium (135-145) mmol/L Anion Gap (4.00-12.00) mmol/L Est GFR (CKD-EPI)AfAm (60.0-200.0) Est GFR (CKD-EPI)NonAf (60.0-200.0) Glucose (70-110) mg/dL POC Glucose (mg/dL) 153 H 189 H (75-99) mg/dL Lactate Dehydrogenase (120-246) U/L C-Reactive Protein (0.0-0.8) mg/dL 02/19/21 02/19/21 Range/Units 06:39 07:43 Hct (37.2-46.3) % MCHC (32.0-37.0) g/dL Eosinophils # (0.04-0.35) X 10*3/uL D-Dimer (<0.60) mg/L FEU Sodium (135-145) mmol/L Anion Gap (4.00-12.00) mmol/L Est GFR (CKD-EPI)AfAm (60.0-200.0) Est GFR (CKD-EPI)NonAf (60.0-200.0) Glucose (70-110) mg/dL POC Glucose (mg/dL) 127 H (75-99) mg/dL Lactate Dehydrogenase (120-246) U/L C-Reactive Protein 42.6 H (0.0-0.8) mg/dL Assessment and Plan Assessment: Impression: Acute hypoxic respiratory failure secondary to acute covid 19 pneumonia, patient is out of the window for REM. Elevated inflammatory markers secondary to above. History of underlying COPD but relatively stable. History of bronchogenic carcinoma previous right middle and right lower lobectomy, had previous surgery at [facility]. This was in February. Benign essential hypertension Hemoptysis. Former smoker. Recommendation: Clearly the patient is getting worse in the last 24 hours,, and I would be quite concerned whether the patient is having worsening Covid 19 pneumonia or possible thromboembolic disease. Workup was initiated. Start patient on Lovenox at 40 mg subcu daily Initiate workup for DVT and pulmonary embolism including venous Doppler VQ scan, repeat basic metabolic profile, consider even a CT angiogram of the chest if the venous Doppler is nondiagnostic. Or the VQ scan nondiagnostic. Continue present supportive care measures. Titrate oxygen, maintain O2 sats above 90%. Continue to monitor inflammatory markers. Depending on the renal profile today, may even send the patient for a CT angiogram of the chest. Will follow. Time with Patient: Less than 30
[2021-02-19] MEDS ORDERED: ENOXAPARIN 40 MG/0.4 ML SYRINGE SQ SCH (10:45)
[2021-02-19 11:15] LABS: African American GFR (CKD) 66 (>60 ml/min/1.73 sqM); Anion Gap 11 mmol/L; Blood Urea Nitrogen 17 mg/dL (7-17); Calcium 9.2 mg/dL (8.4-10.2); Carbon Dioxide 23 mmol/L (22-30); Chloride 107 mmol/L (98-107); Glucose 133 mg/dL (74-99); Non-African American GFR(CKD) 58 (>60 ml/min/1.73 sqM); Potassium 4.5 mmol/L (3.5-5.1); Sodium 141 mmol/L (137-145)
[2021-02-19 12:17] LABS: Glucose,Whole Blood 132 mg/dL (75-99)
--- NOTE | 2021-02-19 12:25 | NM ---
EXAMINATION TYPE: NM pul perfusion DATE OF EXAM: 02/19/2021 COMPARISON: Chest x-ray 02/18/2021 HISTORY: Possible pulmonary embolism Following administration of 5.1 mCi Tc 99m MAA. Images obtained post injection. No Vent protocol du e to COVID FINDINGS: Small defect is in the posterior right lung base. A small right apical defect is present. Moderate de fect may be in the right infrahilar region. Additional moderate or large defects are not identified. Typically, to moderate or large defect are required IMPRESSION: Low probability for pulmonary embolism based on modified PIOPED 2 criteria.
--- NOTE | 2021-02-19 14:15 | US ---
EXAMINATION TYPE: US venous doppler duplex LE BI DATE OF EXAM: 02/19/2021 1:56 PM COMPARISON: NONE CLINICAL HISTORY: dvt. COVID SIDE PERFORMED: Bilateral TECHNIQUE: The lower extremity deep venous system is examined utilizing real time linear array sonog khai with graded compression, doppler sonography and color-flow sonography. VESSELS IMAGED: Common Femoral Vein Deep Femoral Vein Greater Saphenous Vein * Femoral Vein Popliteal Vein Small Saphenous Vein * Proximal Calf Veins (* superficial vessels) Technical limitations due to patient's body habitus Right Leg: no evidence of DVT as visualized Left Leg: no evidence of DVT as visualized IMPRESSION: No evidence of bilateral lower extremity DVT.
[2021-02-19 17:02] LABS: Glucose,Whole Blood 157 mg/dL (75-99)
[2021-02-19 20:46] LABS: Glucose,Whole Blood 154 mg/dL (75-99)
[2021-02-19] MEDS: ENOXAPARIN 120 MG/0.8 ML SYRINGE SQ SCH (22:01)
[2021-02-19] MEDS: ASPIRIN 81 MG PO SCH (22:02)
[2021-02-19] MEDS: PRAVASTATIN SODIUM 80 MG TAB PO SCH (22:04)
[2021-02-19] MEDS: ZOLPIDEM 5 MG TAB PO PRN (22:04)
--- NOTE | 2021-02-19 23:39 | P.PN ---
Progress Note - Text Progress Note Date: 02/19/21 Chief Complaint: Short of breath History of presenting complaint: This is a very pleasant 65-year-old patient of Dr. rios. Chronic stable medical conditions include hypertension, hyperlipidemia, morbid obesity. Patient underwent right middle and right lower lobe lung lobectomy by Dr. Duran at [facility]. This was followed by chemotherapy. Patient had been in remission since then. Patient for 2 weeks has been having increasingly short of breath cough some chills. Patient's has a diagnoses of COVID. Denies any loss of smell or taste. No sore throat. Does feel exhausted. Decreased appetite. Patient's come back testing positive for COVID 19 pneumonia. Pulse ox on presentation was 83% Admitted with bilateral COVID 19 pneumonia, acute hypoxic respiratory failure. Started on IV Decadron and Lovenox. Pulmonary consulted Today: 1 short of breath. FiO2 increased to 50 L. Pulse ox 91%. Sitting at the edge of the bed. Tired. Eating little. Review of systems: Was done for constitutional, cardiovascular, GI, pulmonary. relevant finding as above Active Medications Albuterol Sulfate (Albuterol Hfa Inhaler) 2 puff INHALATION RT-QID [facility] Last Admin: 02/19/21 19:08 Dose: 2 puff Documented by: Ascorbic Acid (Ascorbic Acid 500 Mg Tab) 1,000 mg PO DAILY [facility] Last Admin: 02/19/21 08:36 Dose: 1,000 mg Documented by: Aspirin (Aspirin 81 Mg) 81 mg PO HS [facility] Last Admin: 02/19/21 22:02 Dose: 81 mg Documented by: Cholecalciferol (Cholecalciferol 25 Mcg (1000 Iu) Tablet) 125 mcg PO DAILY [facility] Last Admin: 02/19/21 08:36 Dose: 125 mcg Documented by: Dexamethasone Sodium Phosphate (Dexamethasone Sod Phosphate 10 Mg/Ml 1 Ml Vial) 6 mg IV DAILY [facility] Last Admin: 02/19/21 08:36 Dose: 6 mg Documented by: Enoxaparin Sodium (Enoxaparin 120 Mg/0.8 Ml Syringe) 120 mg SQ Q12HR [facility] Last Admin: 02/19/21 22:01 Dose: 120 mg Documented by: Famotidine (Famotidine 20 Mg Tab) 20 mg PO BID [facility] Last Admin: 02/19/21 22:01 Dose: 20 mg Documented by: Sodium Chloride (Saline 0.9%) 1,000 mls @ 75 mls/hr IV .[id number] [facility] Last Admin: 02/19/21 22:01 Dose: 75 mls/hr Documented by: Insulin Aspart (Insulin Aspart (Novolog) 100 Unit/Ml Vial) 0 unit SQ ACHS [facility]; Protocol Last Admin: 02/19/21 22:01 Dose: 2 unit Documented by: Metformin HCl (Metformin 500 Mg Tab) 500 mg PO BID [facility] Last Admin: 02/19/21 22:04 Dose: 500 mg Documented by: Metoprolol Tartrate (Metoprolol Tartrate 50 Mg Tab) 50 mg PO BID [facility] Last Admin: 02/19/21 22:02 Dose: 50 mg Documented by: Naloxone HCl (Naloxone 0.4 Mg/Ml 1 Ml Vial) 0.2 mg IV Q2M PRN PRN Reason: Opioid Reversal Pravastatin Sodium (Pravastatin Sodium 80 Mg Tab) 80 mg PO HS [facility] Last Admin: 02/19/21 22:04 Dose: 80 mg Documented by: Zinc Sulfate (Zinc Sulfate 220 Mg Cap) 220 mg PO DAILY [facility] Last Admin: 02/19/21 08:36 Dose: 220 mg Documented by: Zolpidem Tartrate (Zolpidem 5 Mg Tab) 5 mg PO HS PRN PRN Reason: Insomnia Last Admin: 02/19/21 22:04 Dose: 5 mg Documented by: Past medical history to include: Hypertension, hyperlipidemia, lung cancer with removal of right middle and lower lobe lobectomy at [facility] in 2023 by chemotherapy. Diabetes type 2, Social history: . No alcohol. Does smoke in the past. A pack a day for close to 43 years. Family history: Reviewed, noncontributory to presentation Physical examination: VITAL SIGNS: 97.8, 89, 20, 79/48, 91% on 15 L GENERAL: Sitting of the edge of the bed, short of breath, tired LUNGS: Respiratory rate increased, using some accessory muscles. PSYCH: Alert and oriented x3; mood and affect anxious. NEUROLOGICAL: Cranial nerves grossly intact; no facial asymmetry, moving all 4 limbs Rest of the physical exam as per pulmonary and nursing INVESTIGATIONS, reviewed in the clinical context: February 19: D-dimer 3.6 CRP 42.6 WBC 6.3 hemoglobin 14.2 platelets 167 d-dimer 1.36 Potassium 4.5 bun 19 creatinine 1.2 to CRP 75.9 procalcitonin 0.17 Coronavirus [PCR]-detected EKG tracing personally reviewed by me-normal sinus rhythm Chest x-ray film personally reviewed by me-bilateral infiltrates Assessment and plan: -Acute bilateral COVID 19 pneumonia with symptoms present for close to 2 weeks- slow to respond. Patient started on vitamin C vitamin D IV Decadron Pepcid zinc. Given that d- dimer described above 3 and this condition he got prothrombotic and pulse ox requirement going up the change the patient to therapeutic dose of Lovenox -Acute hypoxic respiratory failure secondary to COVID 19 pneumonia-worsening. Patient is currently on 15 L of nasal cannula -Morbid obesity BMI 49.4 Weight loss measures and follow-up with PCP as an outpatient -Diabetes mellitus type 2 on oral hypoglycemic Continue with metformin. Expect Accu-Cheks to go up in view of the steroids. -Hyperlipidemia Continue with Pravachol -Essential hypertension Continue with Lopressor Lovenox increased to therapeutic dose. Spoke to the patient also course patient's daughter and given an updated about patient's clinical condition. Prognosis guarded. Follow-up with pulmonary. Patient may shortly require BiPAP. Nurse has contacted pulmonary.
[2021-02-20 07:38] LABS: Glucose,Whole Blood 121 mg/dL (75-99)
[2021-02-20] MEDS: INSULIN ASPART (NovoLOG) 100 UNIT/ML VIAL SQ SCH ×4 (07:58→22:48)
[2021-02-20] MEDS: ENOXAPARIN 120 MG/0.8 ML SYRINGE SQ SCH (08:43)
[2021-02-20] MEDS: ZINC SULFATE 220 MG CAP PO SCH (08:43)
[2021-02-20] MEDS: DEXAMETHASONE SOD PHOSPHATE 10 MG/ML 1 ML VIAL IV SCH (08:43)
[2021-02-20] MEDS: FAMOTIDINE 20 MG TAB PO SCH ×2 (08:43→22:51)
[2021-02-20] MEDS: METOPROLOL TARTRATE 50 MG TAB PO SCH ×2 (08:43→22:51)
[2021-02-20] MEDS: ASCORBIC ACID 500 MG TAB PO SCH (08:43)
[2021-02-20] MEDS: CHOLECALCIFEROL 25 MCG (1000 IU) TABLET PO SCH (08:43)
[2021-02-20] MEDS: metFORMIN 500 MG TAB PO SCH ×2 (08:43→22:49)
[2021-02-20] MEDS: SODIUM CHLORIDE 0.9% 1,000 ML IV SCH (08:44)
[2021-02-20] MEDS: ALBUTEROL HFA INHALER INHALATION SCH ×4 (08:47→19:48)
[2021-02-20 11:56] LABS: Glucose,Whole Blood 123 mg/dL (75-99)
--- NOTE | 2021-02-20 15:50 | P.PN ---
Subjective Progress Note Date: 02/20/21 Principal diagnosis: Shortness of breath. Patient was reevaluated today on 02/18/2021, patient is about the same compared to yesterday, remains on 6 L high flow nasal cannula, O2 saturation is 88% to 92%. Patient is sitting at a bedside chair, does not seem to be in any distress. Patient is on the Covid 19 cocktail. And so far she is doing fairly well. CBC is relatively normal. D-dimer is 1.36. Creatinine is slightly elevated at 1.22. C-reactive protein was 76 and her LDH was 1267 yesterday on admission. Reevaluated today on 02/19/2021, patient is feeling a bit worse today, she is having more symptoms of shortness of breath, she is now on 16 L high flow cannula, and her O2 saturation is in the high 80s, patient was on 6 L yesterday, and now she is having some slightly blood-tinged sputum. Patient will have a venous Doppler today, we'll recommend a VQ scan, may even recommend a CT angiogram of the chest to rule out pulmonary embolism. Patient had a creatinine of 1.22 on admission, and I have ordered a repeat basic metabolic profile this morning. In the meantime I will go ahead and start the patient on Lovenox 40 mg subcu daily. Progress note dated 02/20/2021. Currently, the patient is on 15 L high flow nasal cannula. She has been using BiPAP, with settings of EPAP 6 IPAP 12 and 100%. In addition, the patient is receiving saline at 75 mL an hour. Currently, she sitting at the bedside. She isn't feeling so great. She states that she's very short of breath still, and is coughing. She's not producing any phlegm. There is no fever or chills. No chest pain or chest discomfort. No new labs today other than a d-dimer of 6.2, and a C-reactive protein of 63.1. Dopplers of the bilateral lower extremity showed no evidence of DVT. Ventilation/perfusion lung scan was low probability for pulmonary embolism. Objective - Vital Signs Vital signs: Vital Signs Temp 97.4 F L 02/20/21 14:00 Pulse 99 02/20/21 14:00 Resp 22 02/20/21 14:00 BP 131/74 02/20/21 14:00 Pulse Ox 81 L 02/20/21 14:00 Intake & Output 02/19/21 02/20/21 02/20/21 18:59 06:59 18:59 Intake Total 1000 420 Balance 1000 420 Intake: Oral 1000 420 Other: Voiding Method Toilet # Voids 3 3 # Bowel Movements 1 - Exam No acute distress, oriented 3. No conversational dyspnea or use of accessory muscles. Saturations mid 80s on the 15th. High flow nasal O2 HEENT examination is grossly unremarkable. Neck supple. Full range of motion. No adenopathy thyromegaly or neck vein distention. Cardiovascular examination reveals regular rhythm rate. S1-S2 normal. No S3 or S4. No discernible murmur noted. Heart rate 99 bpm. Lungs reveal coarse bilateral rhonchi and a few scattered crackles. No wheezes. Breath sounds equal bilaterally but diminished throughout. Abdomen soft bowel sounds are heard. No masses or tenderness. Extremities are intact. No cyanosis clubbing or edema. Skin is without rash or lesion. Neurologic examination is brief but nonfocal. - Labs CBC & Chem 7: 02/18/21 05:30 02/19/21 06:39 Labs: Abnormal Lab Results - Last 24 Hours (Table) 02/19/21 02/19/21 02/20/21 Range/Units 17:01 20:44 06:26 D-Dimer 6.20 H (<0.60) mg/L FEU POC Glucose (mg/dL) 157 H 154 H (75-99) mg/dL C-Reactive Protein (<10.0) mg/L 02/20/21 02/20/21 02/20/21 Range/Units 06:26 07:35 11:55 D-Dimer (<0.60) mg/L FEU POC Glucose (mg/dL) 121 H 123 H (75-99) mg/dL C-Reactive Protein 63.1 H (<10.0) mg/L Assessment and Plan Assessment: Acute hypoxemic respiratory failure secondary to COVID 19 pneumonitis. History of underlying COPD from previous tobacco use. History of bronchogenic carcinoma, with previous right middle and right lower lobectomy. Surgery was done on [facility] February 2020. Benign essential hypertension. History of hemoptysis. Prior history of tobacco use. Plan: Plan dated 02/20/2021. The patient is currently on high flow nasal O2. I asked her to move about in bed when she is lying down. Right side down, left side down, supine, and even prone if possible. Dopplers of the lower extremities were negative for DVT. Ventilation perfusion lung scan was low probability for pulmonary embolism. Medications are reviewed. We will continue to follow the patient. Additional recommendations and suggestions are forthcoming. Time with Patient: Less than 30
[2021-02-20 17:22] LABS: Glucose,Whole Blood 175 mg/dL (75-99)
[2021-02-20] MEDS ORDERED: ENOXAPARIN 60 MG/0.6 ML SYRINGE SQ SCH (21:00)
--- NOTE | 2021-02-20 21:08 | P.PN ---
Progress Note - Text Progress Note Date: 02/20/21 Chief Complaint: Short of breath History of presenting complaint: This is a very pleasant 65-year-old patient of Dr. rios. Chronic stable medical conditions include hypertension, hyperlipidemia, morbid obesity. Patient underwent right middle and right lower lobe lung lobectomy by Dr. Duran at [facility]. This was followed by chemotherapy. Patient had been in remission since then. Patient for 2 weeks has been having increasingly short of breath cough some chills. Patient's has a diagnoses of COVID. Denies any loss of smell or taste. No sore throat. Does feel exhausted. Decreased appetite. Patient's come back testing positive for COVID 19 pneumonia. Pulse ox on presentation was 83% Admitted with bilateral COVID 19 pneumonia, acute hypoxic respiratory failure. Started on IV Decadron and Lovenox. Pulmonary consulted Today: Sitting of the edge of the bed. Some shortness of breath. Pulse ox in the 80s on nasal cannula. Some oral intake. Tired Review of systems: Was done for constitutional, cardiovascular, GI, pulmonary. relevant finding as above Past medical history to include: Hypertension, hyperlipidemia, lung cancer with removal of right middle and lower lobe lobectomy at [facility] in 2023 by chemotherapy. Diabetes type 2, Social history: . No alcohol. Does smoke in the past. A pack a day for close to 43 years. Family history: Reviewed, noncontributory to presentation Physical examination: VITAL SIGNS: 97.8, 89, 20, 79/48, 91% on 15 L GENERAL: Sitting of the edge of the bed, short of breath, tired LUNGS: Respiratory rate increased, using some accessory muscles. PSYCH: Alert and oriented x3; mood and affect anxious. NEUROLOGICAL: Cranial nerves grossly intact; no facial asymmetry, moving all 4 limbs Rest of the physical exam as per pulmonary and nursing INVESTIGATIONS, reviewed in the clinical context: February 19: D-dimer 3.6 CRP 42.6 WBC 6.3 hemoglobin 14.2 platelets 167 d-dimer 1.36 Potassium 4.5 bun 19 creatinine 1.2 to CRP 75.9 procalcitonin 0.17 Coronavirus [PCR]-detected EKG tracing personally reviewed by me-normal sinus rhythm Chest x-ray film personally reviewed by me-bilateral infiltrates Assessment and plan: -Acute bilateral COVID 19 pneumonia with symptoms present for close to 2 weeks prior to presentation-not improving on vitamin C vitamin D IV Decadron Pepcid zinc. -Acute hypoxic respiratory failure secondary to COVID 19-worsening Patient's pulse ox 82% on 15 L of nasal cannula. Nurse stated that They may be no BiPAP in the hospital. Ordered the same, also to inform pulmonary -Morbid obesity BMI 49.4 Weight loss measures and follow-up with PCP as an outpatient -Diabetes mellitus type 2 on oral hypoglycemic Continue with metformin. Expect Accu-Cheks to go up in view of the steroids. -Hyperlipidemia Continue with Pravachol -Essential hypertension Continue with Lopressor Prognosis guarded. BiPAP ordered. Other medications to continue
[2021-02-20 21:18] LABS: Glucose,Whole Blood 207 mg/dL (75-99)
[2021-02-20] MEDS: ASPIRIN 81 MG PO SCH (22:48)
[2021-02-20] MEDS: PRAVASTATIN SODIUM 80 MG TAB PO SCH (22:48)
[2021-02-20] MEDS: ZOLPIDEM 5 MG TAB PO PRN (22:51)
[2021-02-21] MEDS: SODIUM CHLORIDE 0.9% 1,000 ML IV SCH ×3 (04:48→21:27)
[2021-02-21 08:09] LABS: Glucose,Whole Blood 108 mg/dL (75-99)
[2021-02-21] MEDS: INSULIN ASPART (NovoLOG) 100 UNIT/ML VIAL SQ SCH ×4 (08:11→21:11)
[2021-02-21] MEDS: ZINC SULFATE 220 MG CAP PO SCH (08:19)
[2021-02-21] MEDS: FAMOTIDINE 20 MG TAB PO SCH (08:20)
[2021-02-21] MEDS: METOPROLOL TARTRATE 50 MG TAB PO SCH ×2 (08:20→19:51)
[2021-02-21] MEDS: ASCORBIC ACID 500 MG TAB PO SCH (08:20)
[2021-02-21] MEDS: DEXAMETHASONE SOD PHOSPHATE 10 MG/ML 1 ML VIAL IV SCH (08:25)
[2021-02-21] MEDS: ALBUTEROL HFA INHALER INHALATION SCH ×4 (08:59→20:04)
[2021-02-21] MEDS: ENOXAPARIN 60 MG/0.6 ML SYRINGE SQ SCH ×2 (09:18→19:56)
[2021-02-21] MEDS: CHOLECALCIFEROL 25 MCG (1000 IU) TABLET PO SCH (10:53)
[2021-02-21 12:17] LABS: Glucose,Whole Blood 133 mg/dL (75-99)
[2021-02-21] MEDS: metFORMIN 500 MG TAB PO SCH ×2 (13:04→21:26)
--- NOTE | 2021-02-21 14:07 | P.PN ---
Subjective Progress Note Date: 02/21/21 02/21/2021 seeing the patient for a follow-up in regards to Covid associated pneumonia. The patient also has history of lung cancer with a previous lobectomy involving the right middle lobe and right lower lobe that was done back in February 2020. For now, the patient is on oxygen at 15 L per minute nasal cannula. She has been also using BiPAP at a pressure of 12/6 cm of water with an FiO2 of 100%. She is also on IV fluids admitted 35 mL an hour of normal saline. The patient is being treated with Decadron 6 mg daily IV every 24 hours and the patient is also on Lovenox 60 mg subcu every 12 hours. The mother work showed a d-dimer of 6.2 from yesterday and the patient's LVH level was 521 from 02/18/2021 and a CRP level was 63. The patient's pro-calcitonin level was nonelevated. The patient did not get Remdesivir as the patient was outside the window. The Doppler of the lower extremities were negative and the ventilation/perfusion scan was of a low probability for pulmonary embolism. The patient has a creatinine of 1.03 and renal function is improved and normalized. Objective - Vital Signs Vital signs: Vital Signs Temp 98.1 F 02/21/21 08:00 Pulse 73 02/21/21 08:00 Resp 18 02/21/21 08:00 BP 135/81 02/21/21 08:00 Pulse Ox 94 L 02/21/21 08:00 Intake & Output 02/20/21 02/21/21 02/21/21 18:59 06:59 18:59 Intake Total 600 220 Output Total 1 Balance 600 219 Intake: Oral 600 220 Output: Stool 1 Other: Voiding Method Toilet Toilet # Voids 2 3 1 # Bowel Movements 1 1 - Exam No acute distress, oriented 3. She is currently on a BiPAP at a pressure of 12/6 with an FiO2 of 1% of the current pulse ox is around 95%. HEENT examination is grossly unremarkable. Neck supple. Full range of motion. No adenopathy thyromegaly or neck vein distention. Cardiovascular examination reveals regular rhythm rate. S1-S2 normal. No S3 or S4. No discernible murmur noted. Lungs reveal coarse bilateral rhonchi and a few scattered crackles. No wheezes. Breath sounds equal bilaterally but diminished throughout. Abdomen soft bowel sounds are heard. No masses or tenderness. Extremities are intact. No cyanosis clubbing or edema. Skin is without rash or lesion. Neurologic examination is brief but nonfocal. - Labs CBC & Chem 7: 02/18/21 05:30 02/19/21 06:39 Labs: Abnormal Lab Results - Last 24 Hours (Table) 02/20/21 02/20/21 02/21/21 Range/Units 17:19 21:16 08:07 POC Glucose (mg/dL) 175 H 207 H 108 H (75-99) mg/dL 02/21/21 Range/Units 12:15 POC Glucose (mg/dL) 133 H (75-99) mg/dL Assessment and Plan Plan: 1 Acute hypoxemic respiratory failure secondary to COVID 19 pneumonitis. The patient was hospitalized for hypoxic respiratory failure the patient had progressive worsening in her oxygenation and the patient is currently on a BiPAP at a pressure of 12/6 with an FiO2 of 100%. She is able to generate adequate tidal volumes hepatitis was related on the BiPAP machine is above 800. Nevertheless, the patient is still tachypneic and she carries a high minute ventilation. Current pulse ox is around 94-95%. The patient is currently on Lovenox 60 mg subcu every 12 hours and the patient is also on Decadron 6 mg IV every 24 hours. IV fluids and currently running at 75 mL an hour. Inflammatory markers were noted. D-dimer slightly elevated at 8.2 from yesterday. 2 History of underlying COPD from previous tobacco use. 3 History of bronchogenic carcinoma, with previous right middle and right lower lobectomy. Surgery was done on [facility] February 2020. 4 Benign essential hypertension. 5 morbid obesity and the patient's BMI is 49 point 6 Prior history of tobacco use. Plan: Continue BiPAP for respiratory support Wean down the FiO2 down to 80% Obtain follow-up chest x-ray Monitor inflammatory markers including LDH and CRP and d-dimer was Keep Lovenox for now the current dose The patient is currently on Decadron 6 mg IV every 24 hours Order Tocilizumab 8 mg per KG IV with a maximum dose of 800 mg, as the patient m ay benefit because of progressive worsening shortness of breath and hypoxemia. We will contact the daughter and updated her condition to the family
--- NOTE | 2021-02-21 14:40 | XR ---
EXAMINATION TYPE: XR chest 1V portable DATE OF EXAM: 02/21/2021 COMPARISON: 02/18/2021 HISTORY: Tc of breath TECHNIQUE: Single frontal view of the chest is obtained. FINDINGS: Patchy bilateral diffuse infiltrate stable. No pneumothorax. Heart size enlarged. Postsurg ical change right humerus. Arthropathy of the shoulders. Interstitial pattern stable. IMPRESSION: Diffuse airspace disease stable greater on the right.
[2021-02-21] MEDS ORDERED: TOCILIZUMAB 800 MG in SODIUM CHLORIDE 0.9% 60 ML IV ONE (15:00)
[2021-02-21] MEDS ORDERED: ONDANSETRON 4 MG/2 ML VIAL IVP PRN (15:36)
[2021-02-21 17:21] LABS: Glucose,Whole Blood 178 mg/dL (75-99)
[2021-02-21] MEDS: ASPIRIN 81 MG PO SCH (19:51)
[2021-02-21] MEDS: PRAVASTATIN SODIUM 80 MG TAB PO SCH (19:51)
[2021-02-21 20:24] LABS: ABG Base Excess 4.5 mmol/L; ABG HCO3 29 mmol/L (21-25); ABG PCO2 41 mmHg (35-45); ABG PH 7.45 (7.35-7.45); ABG TCO2 30 mmol/L (19-24); Allen Test Performed? Yes
[2021-02-21 20:25] LABS: ABG PO2 49 mmHg (83-108)
[2021-02-21 21:07] LABS: Glucose,Whole Blood 125 mg/dL (75-99)
--- NOTE | 2021-02-21 23:24 | P.PN ---
Progress Note - Text Progress Note Date: 02/21/21 Chief Complaint: Short of breath History of presenting complaint: This is a very pleasant 65-year-old patient of Dr. rios. Chronic stable medical conditions include hypertension, hyperlipidemia, morbid obesity. Patient underwent right middle and right lower lobe lung lobectomy by Dr. Duran at [facility]. This was followed by chemotherapy. Patient had been in remission since then. Patient for 2 weeks has been having increasingly short of breath cough some chills. Patient's has a diagnoses of COVID. Denies any loss of smell or taste. No sore throat. Does feel exhausted. Decreased appetite. Patient's come back testing positive for COVID 19 pneumonia. Pulse ox on presentation was 83% Admitted with bilateral COVID 19 pneumonia, acute hypoxic respiratory failure. Started on IV Decadron and Lovenox. Pulmonary consulted. Today: Tired. Placed on BiPAP. Short of breath. ACTEMRA ordered by pulmonary today Review of systems: Was done for constitutional, cardiovascular, GI, pulmonary. relevant finding as above Active Medications Albuterol Sulfate (Albuterol Hfa Inhaler) 2 puff INHALATION RT-QID [facility] Last Admin: 02/21/21 20:04 Dose: 2 puff Documented by: Ascorbic Acid (Ascorbic Acid 500 Mg Tab) 1,000 mg PO DAILY [facility] Last Admin: 02/21/21 08:20 Dose: 1,000 mg Documented by: Aspirin (Aspirin 81 Mg) 81 mg PO HS [facility] Last Admin: 02/21/21 19:51 Dose: 81 mg Documented by: Cholecalciferol (Cholecalciferol 25 Mcg (1000 Iu) Tablet) 125 mcg PO DAILY [facility] Last Admin: 02/21/21 10:53 Dose: 125 mcg Documented by: Dexamethasone Sodium Phosphate (Dexamethasone Sod Phosphate 10 Mg/Ml 1 Ml Vial) 6 mg IV DAILY [facility] Last Admin: 02/21/21 08:25 Dose: 6 mg Documented by: Enoxaparin Sodium (Enoxaparin 60 Mg/0.6 Ml Syringe) 60 mg SQ Q12HR [facility] Last Admin: 02/21/21 19:56 Dose: 60 mg Documented by: Famotidine (Famotidine 20 Mg Tab) 20 mg PO DAILY [facility] Sodium Chloride (Saline 0.9%) 1,000 mls @ 75 mls/hr IV .[id number] [facility] Last Admin: 02/21/21 21:27 Dose: 75 mls/hr Documented by: Insulin Aspart (Insulin Aspart (Novolog) 100 Unit/Ml Vial) 0 unit SQ ACHS [facility]; Protocol Last Admin: 02/21/21 21:11 Dose: Not Given Documented by: Metformin HCl (Metformin 500 Mg Tab) 500 mg PO BID [facility] Last Admin: 02/21/21 21:26 Dose: Not Given Documented by: Metoprolol Tartrate (Metoprolol Tartrate 50 Mg Tab) 50 mg PO BID [facility] Last Admin: 02/21/21 19:51 Dose: 50 mg Documented by: Naloxone HCl (Naloxone 0.4 Mg/Ml 1 Ml Vial) 0.2 mg IV Q2M PRN PRN Reason: Opioid Reversal Ondansetron HCl (Ondansetron 4 Mg/2 Ml Vial) 4 mg IVP Q6HR PRN PRN Reason: Nausea And Vomiting Last Admin: 02/21/21 15:48 Dose: 4 mg Documented by: Pravastatin Sodium (Pravastatin Sodium 80 Mg Tab) 80 mg PO HS [facility] Last Admin: 02/21/21 19:51 Dose: 80 mg Documented by: Zinc Sulfate (Zinc Sulfate 220 Mg Cap) 220 mg PO DAILY [facility] Last Admin: 02/21/21 08:19 Dose: 220 mg Documented by: Zolpidem Tartrate (Zolpidem 5 Mg Tab) 5 mg PO HS PRN PRN Reason: Insomnia Last Admin: 02/20/21 22:51 Dose: 5 mg Documented by: Past medical history to include: Hypertension, hyperlipidemia, lung cancer with removal of right middle and lower lobe lobectomy at [facility] in 2023 by chemotherapy. Diabetes type 2, Social history: . No alcohol. Does smoke in the past. A pack a day for close to 43 years. Family history: Reviewed, noncontributory to presentation Physical examination: VITAL SIGNS: 97.4, 90, 22, 130.87, 93% on 100% BiPAP GENERAL: Laying in bed, tired, short of breath LUNGS: Respiratory rate increased, using some accessory muscles. PSYCH: Alert and oriented x3; mood and affect anxious. NEUROLOGICAL: Cranial nerves grossly intact; no facial asymmetry, moving all 4 limbs Rest of the physical exam as per pulmonary and nursing INVESTIGATIONS, reviewed in the clinical context: February 19: D-dimer 3.6 CRP 42.6 WBC 6.3 hemoglobin 14.2 platelets 167 d-dimer 1.36 Potassium 4.5 bun 19 creatinine 1.2 to CRP 75.9 procalcitonin 0.17 Coronavirus [PCR]-detected EKG tracing personally reviewed by me-normal sinus rhythm Chest x-ray film personally reviewed by me-bilateral infiltrates Assessment and plan: -Acute bilateral COVID 19 pneumonia with symptoms present for close to 2 weeks prior to presentation-not improving on vitamin C vitamin D IV Decadron Pepcid zinc. -Acute hypoxic respiratory failure secondary to COVID 19-worsening Patient now 100% BiPAP. -Morbid obesity BMI 49.4 Weight loss measures and follow-up with PCP as an outpatient -Diabetes mellitus type 2 on oral hypoglycemic Continue with metformin. Expect Accu-Cheks to go up in view of the steroids. -Hyperlipidemia Continue with Pravachol -Essential hypertension Continue with Lopressor Patient on BiPAP at 100%. ACTEMRA ordered by pulmonary. Prognosis guarded.
[2021-02-22] MEDS: ALBUTEROL HFA INHALER INHALATION SCH ×4 (07:22→19:58)
[2021-02-22 07:23] LABS: Glucose,Whole Blood 114 mg/dL (75-99)
[2021-02-22] MEDS: INSULIN ASPART (NovoLOG) 100 UNIT/ML VIAL SQ SCH ×4 (08:30→21:19)
[2021-02-22] MEDS: ENOXAPARIN 60 MG/0.6 ML SYRINGE SQ SCH ×2 (09:13→19:29)
[2021-02-22] MEDS: ZINC SULFATE 220 MG CAP PO SCH (09:13)
[2021-02-22] MEDS: ASCORBIC ACID 500 MG TAB PO SCH (09:13)
[2021-02-22] MEDS: CHOLECALCIFEROL 25 MCG (1000 IU) TABLET PO SCH (09:14)
[2021-02-22] MEDS: metFORMIN 500 MG TAB PO SCH (09:14)
[2021-02-22] MEDS: DEXAMETHASONE SOD PHOSPHATE 10 MG/ML 1 ML VIAL IV SCH (09:14)
[2021-02-22] MEDS: FAMOTIDINE 20 MG TAB PO SCH (09:14)
[2021-02-22] MEDS: METOPROLOL TARTRATE 50 MG TAB PO SCH ×2 (09:14→19:31)
[2021-02-22 11:55] LABS: Glucose,Whole Blood 155 mg/dL (75-99)
[2021-02-22] MEDS: SODIUM CHLORIDE 0.9% 1,000 ML IV SCH (13:17)
--- NOTE | 2021-02-22 15:12 | P.PN ---
Subjective Progress Note Date: 02/22/21 02/21/2021 seeing the patient for a follow-up in regards to Covid associated pneumonia. The patient also has history of lung cancer with a previous lobectomy involving the right middle lobe and right lower lobe that was done back in February 2020. For now, the patient is on oxygen at 15 L per minute nasal cannula. She has been also using BiPAP at a pressure of 12/6 cm of water with an FiO2 of 100%. She is also on IV fluids admitted 35 mL an hour of normal saline. The patient is being treated with Decadron 6 mg daily IV every 24 hours and the patient is also on Lovenox 60 mg subcu every 12 hours. The mother work showed a d-dimer of 6.2 from yesterday and the patient's LVH level was 521 from 02/18/2021 and a CRP level was 63. The patient's pro-calcitonin level was nonelevated. The patient did not get Remdesivir as the patient was outside the window. The Doppler of the lower extremities were negative and the ventilation/perfusion scan was of a low probability for pulmonary embolism. The patient has a creatinine of 1.03 and renal function is improved and normalized. 02/22/2021 I'm seeing the patient for a follow-up. The patient was quite short of breath yesterday the patient was on a BiPAP at a pressure of 12/6 cm of water with an FiO2 of 100%. Chest x-ray was also consistent with community related pneumonia with bilateral pulmonary infiltrates. The blood gases at that time showed also the patient was becoming progressively more hypoxic and his pH was 7.45 with a pCO2 of 41 and pO2 49 and this was done on BiPAP with an FiO2 of 80% and as such the FiO2 was brought up to 100%. The patient was kept on Decadron. The patient was also given Tocilizumab 800 mg IV 1. She is also on Lovenox 60 mg every 12 hours and her d-dimer is at 8.47. This morning, the patient is fee ling much better. The patient was taken off the BiPAP and the patient is currently on 15 L of oxygen by nasal cannula. Her pulse ox is fluctuating. I'm thinking should be better off with AIrvo system where the flow and FiO2 will be adjusted to maintain a saturation above 90%. She is awake and alert and she is following commands and answering questions appropriately. No new complaints otherwise for now. Decadron still at 6 mg IV every 24 hours. Objective - Vital Signs Vital signs: Vital Signs Temp 97.5 F L 02/22/21 14:30 Pulse 102 H 02/22/21 14:30 Resp 16 02/22/21 14:30 BP 139/89 02/22/21 14:30 Pulse Ox 80 L 02/22/21 14:30 Intake & Output 02/21/21 02/22/21 02/22/21 18:59 06:59 18:59 Intake Total 1020 100 Output Total 1 1 1 Balance 1019 99 -1 Intake: IV 700 Sodium Chloride 0.9% 1, 600 000 ml @ 75 mls/hr IV . [id number] [facility] Rx#:[id number] Tocilizumab 800 mg In 100 Sodium Chloride 0.9% 60 ml @ 100 mls/hr IV ONCE ONE Rx#:[id number] Oral 320 100 Output: Stool 1 1 1 Other: Voiding Method Toilet Toilet Toilet # Voids 1 1 # Bowel Movements 1 - Exam No acute distress, oriented 3. She is currently on a BiPAP at a pressure of 12/6 with an FiO2 of 100% and the patient was taken off the BiPAP and the patient is currently on oxygen by nasal cannula and she is going to be switched to high flow oxygen. HEENT examination is grossly unremarkable. Neck supple. Full range of motion. No adenopathy thyromegaly or neck vein distention. Cardiovascular examination reveals regular rhythm rate. S1-S2 normal. No S3 or S4. No discernible murmur noted. Lungs reveal coarse bilateral rhonchi and a few scattered crackles. No wheezes. Breath sounds equal bilaterally but diminished throughout. Abdomen soft bowel sounds are heard. No masses or tenderness. Extremities are intact. No cyanosis clubbing or edema. Skin is without rash or lesion. Neurologic examination is brief but nonfocal. - Labs CBC & Chem 7: 02/18/21 05:30 02/19/21 06:39 Labs: Abnormal Lab Results - Last 24 Hours (Table) 02/21/21 02/21/21 02/21/21 Range/Units 17:20 20:14 21:06 D-Dimer (<0.60) mg/L FEU ABG pO2 49 L* (83-108) mmHg ABG HCO3 29 H (21-25) mmol/L ABG Total CO2 30 H (19-24) mmol/L ABG O2 Saturation 85.0 L (94-97) % POC Glucose (mg/dL) 178 H 125 H (75-99) mg/dL 02/22/21 02/22/21 02/22/21 Range/Units 05:09 07:21 11:52 D-Dimer 8.47 H (<0.60) mg/L FEU ABG pO2 (83-108) mmHg ABG HCO3 (21-25) mmol/L ABG Total CO2 (19-24) mmol/L ABG O2 Saturation (94-97) % POC Glucose (mg/dL) 114 H 155 H (75-99) mg/dL Assessment and Plan Plan: 1 Acute hypoxemic respiratory failure secondary to COVID 19 pneumonitis. The patient was hospitalized for hypoxic respiratory failure the patient had progressive worsening in her oxygenation and the patient is currently on a BiPAP at a pressure of 12/6 with an FiO2 of 100%. She is able to generate adequate tidal volumes hepatitis was related on the BiPAP machine is above 800. Nevertheless, the patient is still tachypneic and she carries a high minute ventilation. Current pulse ox is around 94-95%. The patient is currently on Lovenox 60 mg subcu every 12 hours and the patient is also on Decadron 6 mg IV every 24 hours. IV fluids and currently running at 75 mL an hour. Inflammatory markers were noted. D-dimer slightly elevated at 8.2 from yesterday. On 02/22/2021, the patient's condition is more stable. The patient will be taken off the BiPAP and the patient is currently on high flow oxygen by nasal cannula with the flu and FiO2 will be adjusted to maintain a saturation above 90%. She is on Decadron 63 g IV every 24 hours. The patient also received Tocilizumab infusion. She is also on Lovenox 60 mg every 12 hours. Less short of breath compared to yesterday. Able to communicate. Chest x-ray from yesterday was showing bilateral lower lobe pulmonary infiltrates consistent with Covid 19 related pneumonia. 2 History of underlying COPD from previous tobacco use. 3 History of bronchogenic carcinoma, with previous right middle and right lower lobectomy. Surgery was done on [facility] February 2020. 4 Benign essential hypertension. 5 morbid obesity and the patient's BMI is 49 point 6 Prior history of tobacco use. Plan: Try high flow oxygen with 6 L and FiO2 will be adjusted accordingly to maintain a saturation above 90% Obtain follow-up chest x-ray in a.m. Monitor inflammatory markers including LDH and CRP and d-dimer in a.m. Keep Lovenox for now the current dose The patient is currently on Decadron 6 mg IV every 24 hours I contacted her daughter yesterday and had a lengthy discussion with her explaining to her the current situation. Clinically improved and the patient is obvious that short of breath unless symptomatic compared to yesterday.
[2021-02-22 16:27] LABS: C Reactive Protein 2.3 mg/dL (0.0-0.8)
[2021-02-22 17:10] LABS: Glucose,Whole Blood 231 mg/dL (75-99)
[2021-02-22] MEDS: PRAVASTATIN SODIUM 80 MG TAB PO SCH (19:28)
[2021-02-22] MEDS: ASPIRIN 81 MG PO SCH (19:28)
[2021-02-22 20:56] LABS: Glucose,Whole Blood 187 mg/dL (75-99)
--- NOTE | 2021-02-22 22:21 | P.PN ---
Progress Note - Text Progress Note Date: 02/22/21 Chief Complaint: Short of breath History of presenting complaint: This is a very pleasant 65-year-old patient of Dr. rios. Chronic stable medical conditions include hypertension, hyperlipidemia, morbid obesity. Patient underwent right middle and right lower lobe lung lobectomy by Dr. Duran at [facility]. This was followed by chemotherapy. Patient had been in remission since then. Patient for 2 weeks has been having increasingly short of breath cough some chills. Patient's has a diagnoses of COVID. Denies any loss of smell or taste. No sore throat. Does feel exhausted. Decreased appetite. Patient's come back testing positive for COVID 19 pneumonia. Pulse ox on presentation was 83% Admitted with bilateral COVID 19 pneumonia, acute hypoxic respiratory failure. Started on IV Decadron and Lovenox. Pulmonary consulted. ACTEMRA-given on February 21 Today: Tired. Remains short of breath. On BiPAP. Sitting up Review of systems: Was done for constitutional, cardiovascular, GI, pulmonary. relevant finding as above Active Medications Albuterol Sulfate (Albuterol Hfa Inhaler) 2 puff INHALATION RT-QID [facility] Last Admin: 02/22/21 19:58 Dose: 2 puff Documented by: Ascorbic Acid (Ascorbic Acid 500 Mg Tab) 1,000 mg PO DAILY [facility] Last Admin: 02/22/21 09:13 Dose: 1,000 mg Documented by: Aspirin (Aspirin 81 Mg) 81 mg PO HS [facility] Last Admin: 02/22/21 19:28 Dose: 81 mg Documented by: Cholecalciferol (Cholecalciferol 25 Mcg (1000 Iu) Tablet) 125 mcg PO DAILY [facility] Last Admin: 02/22/21 09:14 Dose: 125 mcg Documented by: Dexamethasone Sodium Phosphate (Dexamethasone Sod Phosphate 10 Mg/Ml 1 Ml Vial) 6 mg IV DAILY [facility] Last Admin: 02/22/21 09:14 Dose: 6 mg Documented by: Enoxaparin Sodium (Enoxaparin 60 Mg/0.6 Ml Syringe) 60 mg SQ Q12HR [facility] Last Admin: 02/22/21 19:29 Dose: 60 mg Documented by: Famotidine (Famotidine 20 Mg Tab) 20 mg PO DAILY [facility] Last Admin: 02/22/21 09:14 Dose: 20 mg Documented by: Sodium Chloride (Saline 0.9%) 1,000 mls @ 75 mls/hr IV .[id number] [facility] Last Admin: 02/22/21 13:17 Dose: 75 mls/hr Documented by: Insulin Aspart (Insulin Aspart (Novolog) 100 Unit/Ml Vial) 0 unit SQ ACHS [facility]; Protocol Last Admin: 02/22/21 21:19 Dose: 5 unit Documented by: Metformin HCl (Metformin 500 Mg Tab) 500 mg PO BID [facility] Last Admin: 02/22/21 09:14 Dose: 500 mg Documented by: Metoprolol Tartrate (Metoprolol Tartrate 50 Mg Tab) 50 mg PO BID [facility] Last Admin: 02/22/21 19:31 Dose: 50 mg Documented by: Naloxone HCl (Naloxone 0.4 Mg/Ml 1 Ml Vial) 0.2 mg IV Q2M PRN PRN Reason: Opioid Reversal Ondansetron HCl (Ondansetron 4 Mg/2 Ml Vial) 4 mg IVP Q6HR PRN PRN Reason: Nausea And Vomiting Last Admin: 02/21/21 15:48 Dose: 4 mg Documented by: Pravastatin Sodium (Pravastatin Sodium 80 Mg Tab) 80 mg PO HS [facility] Last Admin: 02/22/21 19:28 Dose: 80 mg Documented by: Zinc Sulfate (Zinc Sulfate 220 Mg Cap) 220 mg PO DAILY [facility] Last Admin: 02/22/21 09:13 Dose: 220 mg Documented by: Zolpidem Tartrate (Zolpidem 5 Mg Tab) 5 mg PO HS PRN PRN Reason: Insomnia Last Admin: 02/20/21 22:51 Dose: 5 mg Documented by: Past medical history to include: Hypertension, hyperlipidemia, lung cancer with removal of right middle and lower lobe lobectomy at [facility] in 2023 by chemotherapy. Diabetes type 2, Social history: . No alcohol. Does smoke in the past. A pack a day for close to 43 years. Family history: Reviewed, noncontributory to presentation Physical examination: VITAL SIGNS: 97.5, 1 or 2, 16, 139.89, 80% on BiPAP GENERAL: Sitting up, tired, short of breath LUNGS: Respiratory rate increased, using some accessory muscles. PSYCH: Alert and oriented x3; mood and affect anxious. NEUROLOGICAL: Cranial nerves grossly intact; no facial asymmetry, moving all 4 limbs Rest of the physical exam as per pulmonary and nursing INVESTIGATIONS, reviewed in the clinical context: February 22: D-dimer 8.47 LDH 882 CRP 2.3 February 19: D-dimer 3.6 CRP 42.6 WBC 6.3 hemoglobin 14.2 platelets 167 d-dimer 1.36 Potassium 4.5 bun 19 creatinine 1.2 to CRP 75.9 procalcitonin 0.17 Coronavirus [PCR]-detected EKG tracing personally reviewed by me-normal sinus rhythm Chest x-ray film personally reviewed by me-bilateral infiltrates Assessment and plan: -Acute bilateral COVID 19 pneumonia with symptoms present for close to 2 weeks prior to presentation-not improving on vitamin C vitamin D IV Decadron Pepcid zinc. ACTEMRA -Acute hypoxic respiratory failure secondary to COVID not improving Patient now 100% BiPAP. -Morbid obesity BMI 49.4 Weight loss measures and follow-up with PCP as an outpatient -Diabetes mellitus type 2 on oral hypoglycemic Continue with metformin. Accu-Cheks -Hyperlipidemia Continue with Pravachol -Essential hypertension Continue with Lopressor Continue BiPAP at 100%. Discussed with patient. Follow-up with pulmonary
[2021-02-23] MEDS: SODIUM CHLORIDE 0.9% 1,000 ML IV SCH ×2 (04:43→17:10)
[2021-02-23 06:46] LABS: C Reactive Protein 17.4 mg/L (<10.0)
[2021-02-23 07:54] LABS: Glucose,Whole Blood 98 mg/dL (75-99)
[2021-02-23] MEDS: INSULIN ASPART (NovoLOG) 100 UNIT/ML VIAL SQ SCH ×4 (08:02→20:32)
[2021-02-23] MEDS: ZINC SULFATE 220 MG CAP PO SCH (08:52)
[2021-02-23] MEDS: CHOLECALCIFEROL 25 MCG (1000 IU) TABLET PO SCH (08:52)
[2021-02-23] MEDS: ASCORBIC ACID 500 MG TAB PO SCH (08:52)
[2021-02-23] MEDS: FAMOTIDINE 20 MG TAB PO SCH (08:53)
[2021-02-23] MEDS: metFORMIN 500 MG TAB PO SCH ×2 (08:53→20:10)
[2021-02-23] MEDS: METOPROLOL TARTRATE 50 MG TAB PO SCH ×2 (08:53→20:10)
[2021-02-23] MEDS: DEXAMETHASONE SOD PHOSPHATE 10 MG/ML 1 ML VIAL IV SCH (08:53)
[2021-02-23] MEDS: ENOXAPARIN 60 MG/0.6 ML SYRINGE SQ SCH ×2 (08:54→20:10)
[2021-02-23] MEDS: ALBUTEROL HFA INHALER INHALATION SCH ×4 (09:16→21:03)
--- NOTE | 2021-02-23 09:45 | XR ---
EXAMINATION TYPE: XR chest 1V DATE OF EXAM: 02/23/2021 COMPARISON: Chest x-ray 02/21/2021 HISTORY: Covid 19 infection TECHNIQUE: Single frontal view of the chest is obtained. FINDINGS: Patient is rotated. Bilateral basilar airspace disease is present, there are overlying matt ds. No evident pneumothorax or pleural effusion. Cardiomediastinal silhouette is stable. IMPRESSION: Correlate for pneumonia.
[2021-02-23 12:06] LABS: Glucose,Whole Blood 145 mg/dL (75-99)
[2021-02-23 12:25] VITALS: BMI 49.4
--- NOTE | 2021-02-23 12:53 | P.PN ---
Subjective Progress Note Date: 02/23/21 Principal diagnosis: 02/21/2021 seeing the patient for a follow-up in regards to Covid associated pneumonia. The patient also has history of lung cancer with a previous lobectomy involving the right middle lobe and right lower lobe that was done back in February 2020. For now, the patient is on oxygen at 15 L per minute nasal cannula. She has been also using BiPAP at a pressure of 12/6 cm of water with an FiO2 of 100%. She is also on IV fluids admitted 35 mL an hour of normal saline. The patient is being treated with Decadron 6 mg daily IV every 24 hours and the patient is also on Lovenox 60 mg subcu every 12 hours. The mother work showed a d-dimer of 6.2 from yesterday and the patient's LVH level was 521 from 02/18/2021 and a CRP level was 63. The patient's pro-calcitonin level was nonelevated. The patient did not get Remdesivir as the patient was outside the window. The Doppler of the lower extremities were negative and the ventilation/perfusion scan was of a low probability for pulmonary embolism. The patient has a creatinine of 1.03 and renal function is improved and normalized. 02/22/2021 I'm seeing the patient for a follow-up. The patient was quite short of breath yesterday the patient was on a BiPAP at a pressure of 12/6 cm of water with an FiO2 of 100%. Chest x-ray was also consistent with community related pneumonia with bilateral pulmonary infiltrates. The blood gases at that time showed also the patient was becoming progressively more hypoxic and his pH was 7.45 with a pCO2 of 41 and pO2 49 and this was done on BiPAP with an FiO2 of 80% and as such the FiO2 was brought up to 100%. The patient was kept on Decadron. The patient was also given Tocilizumab 800 mg IV 1. She is also on Lovenox 60 mg every 12 hours and her d-dimer is at 8.47. This morning, the patient is feeling much better. The patient was taken off the BiPAP and the patient is currently on 15 L of oxygen by nasal cannula. Her pulse ox is fluctuating. I'm thinking should be better off with AIrvo system where the flow and FiO2 will be adjusted to maintain a saturation above 90%. She is awake and alert and she is following commands and answering questions appropriately. No new complaints otherwise for now. Decadron still at 6 mg IV every 24 hours. The patient is seen today 02/23/2021 in follow-up on the regular medical floor. She is currently sitting up in a chair at the bedside. Awake and alert. She is still on BiPAP 12/6 and 90% FiO2 to maintain O2 saturation in the high 80s low 90s. 0.9 normal saline at 75 ML's per hour. She is afebrile. D-dimer 10.8. LDH 2107. C-reactive protein 17.4. She remains on therapeutic Lovenox, dexamet hasone, vitamin supplements. Objective - Vital Signs Vital signs: Vital Signs Temp 98.1 F 02/23/21 08:00 Pulse 89 02/23/21 08:00 Resp 22 02/23/21 08:00 BP 155/96 02/23/21 08:00 Pulse Ox 95 02/23/21 08:00 Intake & Output 02/22/21 02/23/21 02/23/21 18:59 06:59 18:59 Intake Total 1445 400 300 Output Total 1 Balance 1444 400 300 Weight 122.47 kg Intake: IV 825 Sodium Chloride 0.9% 1, 825 000 ml @ 75 mls/hr IV . [id number] [facility] Rx#:[id number] Intake, IV Titration 400 Amount Sodium Chloride 0.9% 1, 400 000 ml @ 75 mls/hr IV . [id number] [facility] Rx#:[id number] Oral 620 300 Output: Stool 1 Other: Voiding Method Toilet Toilet Toilet # Voids 2 1 - Exam Pleasant 65-year-old female, up in a chair at the bedside. Mild respiratory distress, oriented 3. She is currently on a BiPAP at a pressure of 12/6 with an FiO2 of 90% HEENT examination is grossly unremarkable. Neck supple. Full range of motion. No adenopathy thyromegaly or neck vein distention. Cardiovascular examination reveals regular rhythm rate. S1-S2 normal. No S3 or S4. No discernible murmur noted. Lungs reveal coarse bilateral rhonchi and a few scattered crackles. No wheezes. Breath sounds equal bilaterally but diminished throughout. Abdomen soft bowel sounds are heard. No masses or tenderness. Extremities are intact. No cyanosis clubbing or edema. Skin is without rash or lesion. Neurologic examination is brief but nonfocal. - Labs CBC & Chem 7: 02/18/21 05:30 02/19/21 06:39 Labs: Abnormal Lab Results - Last 24 Hours (Table) 02/22/21 02/22/21 02/22/21 Range/Units 05:09 17:08 20:54 D-Dimer (<0.60) mg/L FEU POC Glucose (mg/dL) 231 H 187 H (75-99) mg/dL Lactate Dehydrogenase 882 H (120-246) U/L C-Reactive Protein 2.3 H (0.0-0.8) mg/dL 02/23/21 02/23/21 02/23/21 Range/Units 05:32 05:32 12:05 D-Dimer 10.85 H (<0.60) mg/L FEU POC Glucose (mg/dL) 145 H (75-99) mg/dL Lactate Dehydrogenase 2107 H (120-246) U/L C-Reactive Protein 17.4 H (0.0-0.8) mg/dL Assessment and Plan Assessment: 1 Acute hypoxemic respiratory failure secondary to COVID 19 pneumonitis. The patient was hospitalized for hypoxic respiratory failure the patient had progressive worsening in her oxygenation and the patient is currently on a BiPAP at a pressure of 12/6 with an FiO2 of 90%. She is able to generate adequate tidal volumes. The patient is currently on Lovenox 60 mg subcu every 12 hours and the patient is also on Decadron 6 mg IV every 24 hours. IV fluids and currently running at 75 mL an hour. Inflammatory markers were noted. D-dimer slightly elevated at 8.2 from yesterday. On 02/23/2021, is currently up in a chair at the bedside. Remains on BiPAP 12/6 at 95% FiO2. O2 saturations at 90% She is on Decadron 6 mg IV every 24 hours. The patient also received Tocilizumab infusion. She is also on Lovenox 60 mg every 12 hours. Less short of breath compared to yesterday. Able to comm unicate. Chest x-ray from yesterday was showing bilateral lower lobe pulmonary infiltrates consistent with Covid 19 related pneumonia. 2 History of underlying COPD from previous tobacco use. 3 History of bronchogenic carcinoma, with previous right middle and right lower lobectomy. Surgery was done on [facility] February 2020. 4 Benign essential hypertension. 5 morbid obesity and the patient's BMI is 49 point 6 Prior history of tobacco use. Plan: The patient was seen and evaluated by Dr. Rich Chest x-ray and labs reviewed Continue with current BiPAP settings for now She did receive Tocilizumab Remains on dexamethasone, vitamin supplements Therapeutic Lovenox Repeat d-dimer and inflammatory markers in the a.m. Titrate down the FiO2 as tolerated We will continue to follow and make further recommendations based on her clinical status I, the cosigning physician, performed a history & physical examination of the patient. Lungs sounds bilateral scattered rhonchi, crackles in the posterior bases. Maintaining good O2 saturations in the 90s on BiPAP 12/6 and 90% FiO2. I discussed the assessment and plan of care with my nurse practitioner, Carol Gallo. I attest to the above note as dictated by her.
[2021-02-23 16:53] LABS: Glucose,Whole Blood 174 mg/dL (75-99)
[2021-02-23] MEDS: ASPIRIN 81 MG PO SCH (20:09)
[2021-02-23] MEDS: PRAVASTATIN SODIUM 80 MG TAB PO SCH (20:10)
[2021-02-23 20:20] LABS: Glucose,Whole Blood 204 mg/dL (75-99)
--- NOTE | 2021-02-23 21:47 | P.PN ---
Progress Note - Text Progress Note Date: 02/23/21 Chief Complaint: Short of breath History of presenting complaint: This is a very pleasant 65-year-old patient of Dr. rios. Chronic stable medical conditions include hypertension, hyperlipidemia, morbid obesity. Patient underwent right middle and right lower lobe lung lobectomy by Dr. Duran at [facility]. This was followed by chemotherapy. Patient had been in remission since then. Patient for 2 weeks has been having increasingly short of breath cough some chills. Patient's has a diagnoses of COVID. Denies any loss of smell or taste. No sore throat. Does feel exhausted. Decreased appetite. Patient's come back testing positive for COVID 19 pneumonia. Pulse ox on presentation was 83% Admitted with bilateral COVID 19 pneumonia, acute hypoxic respiratory failure. Started on IV Decadron and Lovenox. Pulmonary consulted. ACTEMRA-given on February 21. Today: Remains tired. Short of breath. On BiPAP. Oral intake over 35%. Sitting on the edge of the bed Review of systems: Was done for constitutional, cardiovascular, GI, pulmonary. relevant finding as above Active Medications Albuterol Sulfate (Albuterol Hfa Inhaler) 2 puff INHALATION RT-QID [facility] Last Admin: 02/23/21 21:03 Dose: 2 puff Documented by: Ascorbic Acid (Ascorbic Acid 500 Mg Tab) 1,000 mg PO DAILY [facility] Last Admin: 02/23/21 08:52 Dose: 1,000 mg Documented by: Aspirin (Aspirin 81 Mg) 81 mg PO HS [facility] Last Admin: 02/23/21 20:09 Dose: 81 mg Documented by: Cholecalciferol (Cholecalciferol 25 Mcg (1000 Iu) Tablet) 125 mcg PO DAILY [facility] Last Admin: 02/23/21 08:52 Dose: 125 mcg Documented by: Dexamethasone Sodium Phosphate (Dexamethasone Sod Phosphate 10 Mg/Ml 1 Ml Vial) 6 mg IV DAILY [facility] Last Admin: 02/23/21 08:53 Dose: 6 mg Documented by: Enoxaparin Sodium (Enoxaparin 60 Mg/0.6 Ml Syringe) 60 mg SQ Q12HR [facility] Last Admin: 02/23/21 20:10 Dose: 60 mg Documented by: Famotidine (Famotidine 20 Mg Tab) 20 mg PO DAILY [facility] Last Admin: 02/23/21 08:53 Dose: 20 mg Documented by: Sodium Chloride (Saline 0.9%) 1,000 mls @ 75 mls/hr IV .[id number] [facility] Last Admin: 02/23/21 17:10 Dose: 75 mls/hr Documented by: Insulin Aspart (Insulin Aspart (Novolog) 100 Unit/Ml Vial) 0 unit SQ ACHS [facility]; Protocol Last Admin: 02/23/21 20:32 Dose: 6 unit Documented by: Metformin HCl (Metformin 500 Mg Tab) 500 mg PO BID [facility] Last Admin: 02/23/21 20:10 Dose: 500 mg Documented by: Metoprolol Tartrate (Metoprolol Tartrate 50 Mg Tab) 50 mg PO BID [facility] Last Admin: 02/23/21 20:10 Dose: 50 mg Documented by: Naloxone HCl (Naloxone 0.4 Mg/Ml 1 Ml Vial) 0.2 mg IV Q2M PRN PRN Reason: Opioid Reversal Ondansetron HCl (Ondansetron 4 Mg/2 Ml Vial) 4 mg IVP Q6HR PRN PRN Reason: Nausea And Vomiting Last Admin: 02/21/21 15:48 Dose: 4 mg Documented by: Pravastatin Sodium (Pravastatin Sodium 80 Mg Tab) 80 mg PO HS [facility] Last Admin: 02/23/21 20:10 Dose: 80 mg Documented by: Zinc Sulfate (Zinc Sulfate 220 Mg Cap) 220 mg PO DAILY [facility] Last Admin: 02/23/21 08:52 Dose: 220 mg Documented by: Zolpidem Tartrate (Zolpidem 5 Mg Tab) 5 mg PO HS PRN PRN Reason: Insomnia Last Admin: 02/20/21 22:51 Dose: 5 mg Documented by: Past medical history to include: Hypertension, hyperlipidemia, lung cancer with removal of right middle and lower lobe lobectomy at [facility] in 2023 by chemotherapy. Diabetes type 2, Social history: . No alcohol. Does smoke in the past. A pack a day for close to 43 years. Family history: Reviewed, noncontributory to presentation Physical examination: VITAL SIGNS: 95, 73, 22, 139/81, 93% on BiPAP at 90 % GENERAL: Sitting up, tired, short of breath LUNGS: Respiratory rate increased, using some accessory muscles. PSYCH: Alert and oriented x3; mood and affect anxious. NEUROLOGICAL: Cranial nerves grossly intact; no facial asymmetry, moving all 4 limbs Rest of the physical exam as per pulmonary and nursing INVESTIGATIONS, reviewed in the clinical context: February 23: D-dimer 10.8 LDH 12/13/2006 CRP 17.4 February 22: D-dimer 8.47 LDH 882 CRP 2.3 February 19: D-dimer 3.6 CRP 42.6 WBC 6.3 hemoglobin 14.2 platelets 167 d-dimer 1.36 Potassium 4.5 bun 19 creatinine 1.2 to CRP 75.9 procalcitonin 0.17 Coronavirus [PCR]-detected EKG tracing personally reviewed by me-normal sinus rhythm Chest x-ray film personally reviewed by me-bilateral infiltrates Assessment and plan: -Acute bilateral COVID 19 pneumonia with symptoms present for close to 2 weeks p rior to presentation-not improving on vitamin C vitamin D IV Decadron Pepcid zinc. ACTEMRA -Acute hypoxic respiratory failure secondary to COVID not improving Remains on 90 % BiPAP. -Morbid obesity BMI 49.4 Weight loss measures and follow-up with PCP as an outpatient -Diabetes mellitus type 2 on oral hypoglycemic Continue with metformin. Accu-Cheks -Hyperlipidemia Continue with Pravachol -Essential hypertension Continue with Lopressor Nurse at called me earlier about patient's daughter wanted to talk. I did communicate with Dr. Rich from pulmonary. He said he'll go to call the [facility]. Continue current medication treatment plan. Prognosis guarded.
[2021-02-24] MEDS: SODIUM CHLORIDE 0.9% 1,000 ML IV SCH ×2 (04:39→20:56)
[2021-02-24] MEDS: ALBUTEROL HFA INHALER INHALATION SCH ×4 (07:39→19:54)
--- NOTE | 2021-02-24 08:23 | XR ---
EXAMINATION TYPE: XR chest 1V DATE OF EXAM: 02/24/2021 COMPARISON: Chest x-ray 02/23/2021 HISTORY: Covid 19 TECHNIQUE: Single frontal view of the chest is obtained. FINDINGS: Patient is rotated. Bilateral airspace disease persists. No evident pneumothorax or pleura l effusion. There are overlying artifacts. Cardiac mediastinal silhouette is likely stable. IMPRESSION: Correlate for pneumonia
[2021-02-24 08:25] LABS: Glucose,Whole Blood 107 mg/dL (75-99)
[2021-02-24] MEDS: INSULIN ASPART (NovoLOG) 100 UNIT/ML VIAL SQ SCH ×4 (08:28→20:58)
[2021-02-24] MEDS: CHOLECALCIFEROL 25 MCG (1000 IU) TABLET PO SCH (09:16)
[2021-02-24] MEDS: metFORMIN 500 MG TAB PO SCH ×2 (09:17→20:57)
[2021-02-24] MEDS: DEXAMETHASONE SOD PHOSPHATE 10 MG/ML 1 ML VIAL IV SCH (09:17)
[2021-02-24] MEDS: FAMOTIDINE 20 MG TAB PO SCH (09:17)
[2021-02-24] MEDS: ZINC SULFATE 220 MG CAP PO SCH (09:17)
[2021-02-24] MEDS: METOPROLOL TARTRATE 50 MG TAB PO SCH ×2 (09:17→20:57)
[2021-02-24] MEDS: ASCORBIC ACID 500 MG TAB PO SCH (09:17)
[2021-02-24] MEDS: ENOXAPARIN 60 MG/0.6 ML SYRINGE SQ SCH ×2 (09:18→20:58)
[2021-02-24] MEDS: BENZOCAINE/MENTHOL LOZENG 1 EACH LOZENGE MUCOUS MEM PRN ×2 (11:10→16:55)
[2021-02-24 12:23] LABS: Glucose,Whole Blood 124 mg/dL (75-99)
--- NOTE | 2021-02-24 13:08 | P.PN ---
Subjective Progress Note Date: 02/24/21 Principal diagnosis: 02/21/2021 seeing the patient for a follow-up in regards to Covid associated pneumonia. The patient also has history of lung cancer with a previous lobectomy involving the right middle lobe and right lower lobe that was done back in February 2020. For now, the patient is on oxygen at 15 L per minute nasal cannula. She has been also using BiPAP at a pressure of 12/6 cm of water with an FiO2 of 100%. She is also on IV fluids admitted 35 mL an hour of normal saline. The patient is being treated with Decadron 6 mg daily IV every 24 hours and the patient is also on Lovenox 60 mg subcu every 12 hours. The mother work showed a d-dimer of 6.2 from yesterday and the patient's LVH level was 521 from 02/18/2021 and a CRP level was 63. The patient's pro-calcitonin level was nonelevated. The patient did not get Remdesivir as the patient was outside the window. The Doppler of the lower extremities were negative and the ventilation/perfusion scan was of a low probability for pulmonary embolism. The patient has a creatinine of 1.03 and renal function is improved and normalized. 02/22/2021 I'm seeing the patient for a follow-up. The patient was quite short of breath yesterday the patient was on a BiPAP at a pressure of 12/6 cm of water with an FiO2 of 100%. Chest x-ray was also consistent with community related pneumonia with bilateral pulmonary infiltrates. The blood gases at that time showed also the patient was becoming progressively more hypoxic and his pH was 7.45 with a pCO2 of 41 and pO2 49 and this was done on BiPAP with an FiO2 of 80% and as such the FiO2 was brought up to 100%. The patient was kept on Decadron. The patient was also given Tocilizumab 800 mg IV 1. She is also on Lovenox 60 mg every 12 hours and her d-dimer is at 8.47. This morning, the patient is feeling much better. The patient was taken off the BiPAP and the patient is currently on 15 L of oxygen by nasal cannula. Her pulse ox is fluctuating. I'm thinking should be better off with AIrvo system where the flow and FiO2 will be adjusted to maintain a saturation above 90%. She is awake and alert and she is following commands and answering questions appropriately. No new complaints otherwise for now. Decadron still at 6 mg IV every 24 hours. The patient is seen today 02/23/2021 in follow-up on the regular medical floor. She is currently sitting up in a chair at the bedside. Awake and alert. She is still on BiPAP 12/6 and 90% FiO2 to maintain O2 saturation in the high 80s low 90s. 0.9 normal saline at 75 ML's per hour. She is afebrile. D-dimer 10.8. LDH 2107. C-reactive protein 17.4. She remains on therapeutic Lovenox, dexamet hasone, vitamin supplements. The patient is seen today 02/24/2021 in follow-up on the regular medical floor. She is awake and alert in mild respiratory distress. Sitting up in a chair at the bedside. Continued on BiPAP 12/6 and 80% FiO2 to maintain O2 saturation in the 90s. Chest x-ray continues to show bilateral patchy infiltrates. She's been afebrile. D-dimer 10.95 today. She remains on Lovenox 60 mg subcu every 12 hours. She is also continued on dexamethasone and vitamin supplements. She did receive Actemra. Objective - Vital Signs Vital signs: Vital Signs Temp 98.1 F 02/24/21 08:27 Pulse 85 02/24/21 08:27 Resp 20 02/24/21 08:27 BP 156/98 02/24/21 08:27 Pulse Ox 90 L 02/24/21 08:27 Intake & Output 02/23/21 02/24/21 02/24/21 18:59 06:59 18:59 Intake Total 700 400 Balance 700 400 Weight 122.47 kg Intake: Intake, IV Titration 400 Amount Sodium Chloride 0.9% 1, 400 000 ml @ 75 mls/hr IV . [id number] [facility] Rx#:[id number] Oral 700 Other: Voiding Method Toilet Toilet Toilet # Voids 4 - Exam Pleasant 65-year-old female, up in a chair at the bedside. Mild respiratory distress, oriented 3. She is currently on a BiPAP at a pressure of 12/6 with an FiO2 of 80% HEENT examination is grossly unremarkable. Neck supple. Full range of motion. No adenopathy thyromegaly or neck vein distention. Cardiovascular examination reveals regular rhythm rate. S1-S2 normal. No S3 or S4. No discernible murmur noted. Lungs reveal coarse bilateral rhonchi and a few scattered crackles. No wheezes. Breath sounds equal bilaterally but diminished throughout. Abdomen soft bowel sounds are heard. No masses or tenderness. Extremities are intact. No cyanosis clubbing or edema. Skin is without rash or lesion. Neurologic examination is brief but nonfocal. - Labs CBC & Chem 7: 02/18/21 05:30 02/19/21 06:39 Labs: Abnormal Lab Results - Last 24 Hours (Table) 02/23/21 02/23/21 02/24/21 Range/Units 16:52 20:19 06:56 D-Dimer 10.95 H (<0.60) mg/L FEU POC Glucose (mg/dL) 174 H 204 H (75-99) mg/dL 02/24/21 02/24/21 Range/Units 08:24 12:21 D-Dimer (<0.60) mg/L FEU POC Glucose (mg/dL) 107 H 124 H (75-99) mg/dL Assessment and Plan Assessment: 1 Acute hypoxemic respiratory failure secondary to COVID 19 pneumonitis. [facility] the patient had progressive worsening in her oxygenation and the patient is currently on a BiPAP at a pressure of 12/6 with an FiO2 down to 80%. The patient is currently on Lovenox 60 mg subcu every 12 hours and the patient is also on Decadron 6 mg IV every 24 hours. IV fluids and currently running at 75 mL an hour. The patient received Tocilizumab infusion. Chest x-ray today is showing bilateral lower lobe pulmonary infiltrates consistent with Covid 19 related pneumonia. 2 History of underlying COPD from previous tobacco use. 3 History of bronchogenic carcinoma, with previous right middle and right lower lobectomy. Surgery was done on [facility] February 2020. 4 Benign essential hypertension. 5 morbid obesity and the patient's BMI is 49 point 6 Prior history of tobacco use. Plan: The patient was seen and evaluated by Dr. Rich He did update the patient's daughter yesterday Chest x-ray and labs reviewed Remains on BiPAP 12/6 and 80% FiO2 Continue to titrate down the FiO2 as tolerated She did receive Tocilizumab Remains on dexamethasone, vitamin supplements Therapeutic Lovenox Increase her activity as tolerated We will continue to follow. I, the cosigning physician, performed a history & physical examination of the patient. Lungs sounds bilateral scattered rhonchi, crackles in the posterior bases. Maintaining good O2 saturations in the 90s on BiPAP 12/6 and 80% FiO2. I discussed the assessment and plan of care with my nurse practitioner, Carol Gallo. I attest to the above note as dictated by her.
[2021-02-24 13:15] LABS: C Reactive Protein 0.6 mg/dL (0.0-0.8)
[2021-02-24 18:08] LABS: Glucose,Whole Blood 207 mg/dL (75-99)
[2021-02-24 20:44] LABS: Glucose,Whole Blood 223 mg/dL (75-99)
[2021-02-24] MEDS: ASPIRIN 81 MG PO SCH (20:57)
[2021-02-24] MEDS: PRAVASTATIN SODIUM 80 MG TAB PO SCH (20:58)
--- NOTE | 2021-02-24 22:23 | P.PN ---
Progress Note - Text Progress Note Date: 02/24/21 Chief Complaint: Short of breath History of presenting complaint: This is a very pleasant 65-year-old patient of Dr. rios. Chronic stable medical conditions include hypertension, hyperlipidemia, morbid obesity. Patient underwent right middle and right lower lobe lung lobectomy by Dr. Duran at [facility]. This was followed by chemotherapy. Patient had been in remission since then. Patient for 2 weeks has been having increasingly short of breath cough some chills. Patient's has a diagnoses of COVID. Denies any loss of smell or taste. No sore throat. Does feel exhausted. Decreased appetite. Patient's come back testing positive for COVID 19 pneumonia. Pulse ox on presentation was 83% Admitted with bilateral COVID 19 pneumonia, acute hypoxic respiratory failure. Started on IV Decadron and Lovenox. Pulmonary consulted. ACTEMRA-given on February 21. Today: Sitting up in a chair. On BiPAP. Short of breath. Eating fairly well. Awake. Ruffin commands Review of systems: Was done for constitutional, cardiovascular, GI, pulmonary. relevant finding as above Active Medications Albuterol Sulfate (Albuterol Hfa Inhaler) 2 puff INHALATION RT-QID [facility] Last Admin: 02/24/21 19:54 Dose: 2 puff Documented by: Ascorbic Acid (Ascorbic Acid 500 Mg Tab) 1,000 mg PO DAILY [facility] Last Admin: 02/24/21 09:17 Dose: 1,000 mg Documented by: Aspirin (Aspirin 81 Mg) 81 mg PO HS [facility] Last Admin: 02/24/21 20:57 Dose: 81 mg Documented by: Benzocaine/Menthol (Benzocaine/Menthol Lozeng 1 Each Lozenge) 1 each MUCOUS MEM Q4HR PRN PRN Reason: Sore Throat Last Admin: 02/24/21 16:55 Dose: 1 each Documented by: Cholecalciferol (Cholecalciferol 25 Mcg (1000 Iu) Tablet) 125 mcg PO DAILY [facility] Last Admin: 02/24/21 09:16 Dose: 125 mcg Documented by: Dexamethasone Sodium Phosphate (Dexamethasone Sod Phosphate 10 Mg/Ml 1 Ml Vial) 6 mg IV DAILY [facility] Last Admin: 02/24/21 09:17 Dose: 6 mg Documented by: Enoxaparin Sodium (Enoxaparin 60 Mg/0.6 Ml Syringe) 60 mg SQ Q12HR [facility] Last Admin: 02/24/21 20:58 Dose: 60 mg Documented by: Famotidine (Famotidine 20 Mg Tab) 20 mg PO DAILY [facility] Last Admin: 02/24/21 09:17 Dose: 20 mg Documented by: Sodium Chloride (Saline 0.9%) 1,000 mls @ 75 mls/hr IV .[id number] [facility] Last Admin: 02/24/21 20:56 Dose: Not Given Documented by: Insulin Aspart (Insulin Aspart (Novolog) 100 Unit/Ml Vial) 0 unit SQ [facility]; Protocol Last Admin: 02/24/21 20:58 Dose: 7 unit Documented by: Metformin HCl (Metformin 500 Mg Tab) 500 mg PO BID [facility] Last Admin: 02/24/21 20:57 Dose: 500 mg Documented by: Metoprolol Tartrate (Metoprolol Tartrate 50 Mg Tab) 50 mg PO BID [facility] Last Admin: 02/24/21 20:57 Dose: 50 mg Documented by: Naloxone HCl (Naloxone 0.4 Mg/Ml 1 Ml Vial) 0.2 mg IV Q2M PRN PRN Reason: Opioid Reversal Ondansetron HCl (Ondansetron 4 Mg/2 Ml Vial) 4 mg IVP Q6HR PRN PRN Reason: Nausea And Vomiting Last Admin: 02/21/21 15:48 Dose: 4 mg Documented by: Pravastatin Sodium (Pravastatin Sodium 80 Mg Tab) 80 mg PO HS [facility] Last Admin: 02/24/21 20:58 Dose: 80 mg Documented by: Zinc Sulfate (Zinc Sulfate 220 Mg Cap) 220 mg PO DAILY [facility] Last Admin: 02/24/21 09:17 Dose: 220 mg Documented by: Zolpidem Tartrate (Zolpidem 5 Mg Tab) 5 mg PO HS PRN PRN Reason: Insomnia Last Admin: 02/20/21 22:51 Dose: 5 mg Documented by: Past medical history to include: Hypertension, hyperlipidemia, lung cancer with removal of right middle and lower lobe lobectomy at [facility] in 2023 by chemotherapy. Diabetes type 2, Social history: . No alcohol. Does smoke in the past. A pack a day for close to 43 years. Family history: Reviewed, noncontributory to presentation Physical examination: VITAL SIGNS: 98, 80, 16, 143/81, 90% on BiPAP at 80% GENERAL: Sitting up, tired, short of breath LUNGS: Respiratory rate increased, using some accessory muscles. PSYCH: Alert and oriented x3; mood and affect anxious. NEUROLOGICAL: Cranial nerves grossly intact; no facial asymmetry, moving all 4 limbs Rest of the physical exam as per pulmonary and nursing INVESTIGATIONS, reviewed in the clinical context: February 24: D-dimer 10.9 LDH 685 CRP 0.6 February 23: D-dimer 10.8 LDH 12/13/2006 CRP 17.4 February 22: D-dimer 8.47 LDH 882 CRP 2.3 February 19: D-dimer 3.6 CRP 42.6 WBC 6.3 hemoglobin 14.2 platelets 167 d-dimer 1.36 Potassium 4.5 bun 19 creatinine 1.2 to CRP 75.9 procalcitonin 0.17 Coronavirus [PCR]-detected EKG tracing personally reviewed by me-normal sinus rhythm Chest x-ray film personally reviewed by me-bilateral infiltrates Assessment and plan: -Acute bilateral COVID 19 pneumonia with symptoms present for close to 2 weeks prior to slow to respond on vitamin C vitamin D IV Decadron Pepcid zinc. ACTEMRA -Acute hypoxic respiratory failure secondary to COVID -slow to respond Remains on 80% % BiPAP. -Morbid obesity BMI 49.4 Weight loss measures and follow-up with PCP as an outpatient -Diabetes mellitus type 2 on oral hypoglycemic Continue with metformin. Accu-Cheks -Hyperlipidemia Continue with Pravachol -Essential hypertension Continue with Lopressor Discussed with the patient. Continue current medication. Plan.
[2021-02-25] MEDS: SODIUM CHLORIDE 0.9% 1,000 ML IV SCH (05:05)
--- NOTE | 2021-02-25 07:54 | XR ---
EXAMINATION TYPE: XR chest 1V DATE OF EXAM: 02/25/2021 COMPARISON: 02/25/2020 HISTORY: Shortness of breath TECHNIQUE: Single frontal view of the chest is obtained. FINDINGS: Bilateral infiltrates are stable. Heart size unchanged. No pneumothorax. Arthropathy of th e shoulder. Tiny bilateral effusions excluded. IMPRESSION: Stable bilateral infiltrate
[2021-02-25 08:07] LABS: Glucose,Whole Blood 90 mg/dL (75-99)
[2021-02-25] MEDS: INSULIN ASPART (NovoLOG) 100 UNIT/ML VIAL SQ SCH ×4 (08:37→20:52)
[2021-02-25] MEDS: DEXAMETHASONE SOD PHOSPHATE 10 MG/ML 1 ML VIAL IV SCH (08:49)
[2021-02-25] MEDS: METOPROLOL TARTRATE 50 MG TAB PO SCH ×2 (08:50→20:53)
[2021-02-25] MEDS: ZINC SULFATE 220 MG CAP PO SCH (08:50)
[2021-02-25] MEDS: FAMOTIDINE 20 MG TAB PO SCH (08:50)
[2021-02-25] MEDS: metFORMIN 500 MG TAB PO SCH ×2 (08:50→20:53)
[2021-02-25] MEDS: ENOXAPARIN 60 MG/0.6 ML SYRINGE SQ SCH ×2 (08:50→20:54)
[2021-02-25] MEDS: ASCORBIC ACID 500 MG TAB PO SCH (08:50)
[2021-02-25] MEDS: CHOLECALCIFEROL 25 MCG (1000 IU) TABLET PO SCH (08:50)
[2021-02-25] MEDS: ALBUTEROL HFA INHALER INHALATION SCH ×4 (09:14→19:54)
[2021-02-25 11:51] LABS: Glucose,Whole Blood 177 mg/dL (75-99)
[2021-02-25] MEDS: BENZOCAINE/MENTHOL LOZENG 1 EACH LOZENGE MUCOUS MEM PRN ×2 (16:24→23:02)
[2021-02-25] MEDS ORDERED: FUROSEMIDE 10 MG/ML 2 ML VIAL IV ONE (17:22)
[2021-02-25 17:36] LABS: Glucose,Whole Blood 157 mg/dL (75-99)
--- NOTE | 2021-02-25 18:50 | P.PN ---
Subjective Progress Note Date: 02/25/21 Principal diagnosis: Shortness of breath, COVID-19 pneumonia 02/21/2021 seeing the patient for a follow-up in regards to Covid associated pneumonia. The patient also has history of lung cancer with a previous lobectomy involving the right middle lobe and right lower lobe that was done back in February 2020. For now, the patient is on oxygen at 15 L per minute nasal cannula. She has been also using BiPAP at a pressure of 12/6 cm of water with an FiO2 of 100%. She is also on IV fluids admitted 35 mL an hour of normal saline. The patient is being treated with Decadron 6 mg daily IV every 24 hours and the patient is also on Lovenox 60 mg subcu every 12 hours. The mother work showed a d-dimer of 6.2 from yesterday and the patient's LVH level was 521 from 02/18/2021 and a CRP level was 63. The patient's pro-calcitonin level was nonelevated. The patient did not get Remdesivir as the patient was outside the window. The Doppler of the lower extremities were negative and the ventilation/perfusion scan was of a low probability for pulmonary embolism. The patient has a creatinine of 1.03 and renal function is improved and normalized. 02/22/2021 I'm seeing the patient for a follow-up. The patient was quite short of breath yesterday the patient was on a BiPAP at a pressure of 12/6 cm of water with an FiO2 of 100%. Chest x-ray was also consistent with community related pneumonia with bilateral pulmonary infiltrates. The blood gases at that time showed also the patient was becoming progressively more hypoxic and his pH was 7.45 with a pCO2 of 41 and pO2 49 and this was done on BiPAP with an FiO2 of 80% and as such the FiO2 was brought up to 100%. The patient was kept on Decadron. The patient was also given Tocilizumab 800 mg IV 1. She is also on Lovenox 60 mg every 12 hours and her d-dimer is at 8.47. This morning, the patient is feeling much better. The patient was taken off the BiPAP and the patient is currently on 15 L of oxygen by nasal cannula. Her pulse ox is fluctuating. I'm thinking should be better off with AIrvo system where the flow and FiO2 will be adjusted to maintain a saturation above 90%. She is awake and alert and she is following commands and answering questions appropriately. No new complaints otherwise for now. Decadron still at 6 mg IV every 24 hours. The patient is seen today 02/23/2021 in follow-up on the regular medical floor. She is currently sitting up in a chair at the bedside. Awake and alert. She is still on BiPAP 12/6 and 90% FiO2 to maintain O2 saturation in the high 80s low 90s. 0.9 normal saline at 75 ML's per hour. She is afebrile. D-dimer 10.8. LDH 2107. C-reactive protein 17.4. She remains on therapeutic Lovenox, dexamethasone, vitamin supplements. The patient is seen today 02/24/2021 in follow-up on the regular medical floor. She is awake and alert in mild respiratory distress. Sitting up in a chair at the bedside. Continued on BiPAP 12/6 and 80% FiO2 to maintain O2 saturation in the 90s. Chest x-ray continues to show bilateral patchy infiltrates. She's been afebrile. D-dimer 10.95 today. She remains on Lovenox 60 mg subcu every 12 hours. She is also continued on dexamethasone and vitamin supplements. She did receive Actemra. On 02/25/2021 patient remains on 100% nonrebreather, she is satting 91% on that, afebrile, appears to be in no acute distress, she is sitting up in the chair, denies any chest pain, occasional cough, she states she just feels puffy, and retaining fluid, she does desat with exertion, she received a dose of Tocilizumab on 02/21/2021, and patient remains on Lovenox 60 mg twice daily, and the dose of IV dexamethasone, and she has been on IV fluids at a rate of 75 ML per hour, and she feels as if she is swollen and retaining fluid. No new labs today, yesterday's labs showed still elevated d-dimer of 10.9, and improving LDH of 685, and CRP of 0.6. Diabetes mellitus x-ray shows bilateral infiltrates that are stable in appearance. Objective - Vital Signs Vital signs: Vital Signs Temp 97.6 F 02/25/21 14:00 Pulse 94 02/25/21 14:00 Resp 22 02/25/21 14:00 BP 138/86 02/25/21 14:00 Pulse Ox 91 L 02/25/21 14:00 Intake & Output 02/24/21 02/25/21 02/25/21 18:59 06:59 18:59 Intake Total 120 500 Balance 120 500 Intake: IV 300 Sodium Chloride 0.9% 1, 300 000 ml @ 75 mls/hr IV . [id number] [facility] Rx#:[id number] Oral 120 200 Other: Voiding Method Toilet Toilet # Voids 5 1 # Bowel Movements 1 - Exam GENERAL EXAM: Alert, very pleasant, 65-year-old white female on 15 L of oxygen a pulse ox of 91% comfortable in no apparent distress. HEAD: Normocephalic/atraumatic. EYES: Normal reaction of pupils, equal size. Conjunctiva pink, sclera white. NOSE: Clear with pink turbinates. THROAT: No erythema or exudates. NECK: No masses, no JVD, no thyroid enlargement, no adenopathy. CHEST: No chest wall deformity. Symmetrical expansion. LUNGS: Equal air entry with diffuse crackles bilaterally CVS: Regular rate and rhythm, normal S1 and S2, no gallops, no murmurs, no rubs ABDOMEN: Soft, nontender. No hepatosplenomegaly, normal bowel sounds, no guarding or rigidity. EXTREMITIES: No clubbing, no edema, no cyanosis, 2+ pulses and upper and lower extremities. MUSCULOSKELETAL: Muscle strength and tone normal. SPINE: No scoliosis or deformity SKIN: No rashes CENTRAL NERVOUS SYSTEM: Alert and oriented -3. No focal deficits, tone is normal in all 4 extremities. PSYCHIATRIC: Alert and oriented -3. Appropriate affect. Intact judgment and i nsight. - Labs CBC & Chem 7: 02/18/21 05:30 02/19/21 06:39 Labs: Abnormal Lab Results - Last 24 Hours (Table) 02/24/21 02/25/21 02/25/21 Range/Units 20:42 11:49 17:31 POC Glucose (mg/dL) 223 H 177 H 157 H (75-99) mg/dL Assessment and Plan Plan: Assessment: 1 Acute hypoxemic respiratory failure secondary to COVID 19 pneumonitis. The patient was hospitalized for hypoxic respiratory failure the patient had progressive worsening in her oxygenation and the patient is currently on a BiPAP at a pressure of 12/6 with an FiO2 down to 80%. The patient is currently on L ovenox 60 mg subcu every 12 hours and the patient is also on Decadron 6 mg IV every 24 hours. IV fluids and currently running at 75 mL an hour. The patient received Tocilizumab infusion. Chest x-ray today is showing bilateral lower lobe pulmonary infiltrates consistent with Covid 19 related pneumonia. 2 History of underlying COPD from previous tobacco use. 3 History of bronchogenic carcinoma, with previous right middle and right lower lobectomy. Surgery was done on [facility] February 2020. 4 Benign essential hypertension. 5 morbid obesity and the patient's BMI is 49 point 6 Prior history of tobacco use. Plan: Obtain follow-up chest x-ray Obtain follow-up inflammatory markers, Hep-Lock IV fluids Continue weaning FiO2, We will give 1 dose of IV Lasix 20 mg Continue current dose of Lovenox Continue Decadron I performed a history & physical examination of the patient and discussed their management with my nurse practitioner, Veda Gates. I reviewed the nurse practitioner's note and agree with the documented findings and plan of care. Lung sounds are positive for diffuse bibasilar crackles The findings and the impression was discussed with the patient. I attest to the documentation by the nurse practitioner. Time with Patient: Less than 30
[2021-02-25 20:21] LABS: Glucose,Whole Blood 276 mg/dL (75-99)
[2021-02-25] MEDS: ASPIRIN 81 MG PO SCH (20:53)
[2021-02-25] MEDS: PRAVASTATIN SODIUM 80 MG TAB PO SCH (20:53)
--- NOTE | 2021-02-26 00:04 | P.PN ---
Progress Note - Text Progress Note Date: 02/25/21 Chief Complaint: Short of breath History of presenting complaint: This is a very pleasant 65-year-old patient of Dr. rios. Chronic stable medical conditions include hypertension, hyperlipidemia, morbid obesity. Patient underwent right middle and right lower lobe lung lobectomy by Dr. Duran at [facility]. This was followed by chemotherapy. Patient had been in remission since then. Patient for 2 weeks has been having increasingly short of breath cough some chills. Patient's has a diagnoses of COVID. Denies any loss of smell or taste. No sore throat. Does feel exhausted. Decreased appetite. Patient's come back testing positive for COVID 19 pneumonia. Pulse ox on presentation was 83% Admitted with bilateral COVID 19 pneumonia, acute hypoxic respiratory failure. Started on IV Decadron and Lovenox. Pulmonary consulted. ACTEMRA-given on February 21. Today: Sitting up in a chair. On BiPAP. Short of breath. Oral intake fair. Awake. Communicating Review of systems: Was done for constitutional, cardiovascular, GI, pulmonary. r elevant finding as above Active Medications Albuterol Sulfate (Albuterol Hfa Inhaler) 2 puff INHALATION RT-QID [facility] Last Admin: 02/25/21 19:54 Dose: 2 puff Documented by: Ascorbic Acid (Ascorbic Acid 500 Mg Tab) 1,000 mg PO DAILY [facility] Last Admin: 02/25/21 08:50 Dose: 1,000 mg Documented by: Aspirin (Aspirin 81 Mg) 81 mg PO HS [facility] Last Admin: 02/25/21 20:53 Dose: 81 mg Documented by: Benzocaine/Menthol (Benzocaine/Menthol Lozeng 1 Each Lozenge) 1 each MUCOUS MEM Q4HR PRN PRN Reason: Sore Throat Last Admin: 02/25/21 23:02 Dose: 1 each Documented by: Cholecalciferol (Cholecalciferol 25 Mcg (1000 Iu) Tablet) 125 mcg PO DAILY [facility] Last Admin: 02/25/21 08:50 Dose: 125 mcg Documented by: Dexamethasone Sodium Phosphate (Dexamethasone Sod Phosphate 10 Mg/Ml 1 Ml Vial) 6 mg IV DAILY [facility] Last Admin: 02/25/21 08:49 Dose: 6 mg Documented by: Enoxaparin Sodium (Enoxaparin 60 Mg/0.6 Ml Syringe) 60 mg SQ Q12HR [facility] Last Admin: 02/25/21 20:54 Dose: 60 mg Documented by: Famotidine (Famotidine 20 Mg Tab) 20 mg PO DAILY [facility] Last Admin: 02/25/21 08:50 Dose: 20 mg Documented by: Sodium Chloride (Saline 0.9%) 1,000 mls @ 20 mls/hr IV .Q24H [facility] Last Admin: 02/25/21 05:05 Dose: 75 mls/hr Documented by: Insulin Aspart (Insulin Aspart (Novolog) 100 Unit/Ml Vial) 0 unit SQ ACHS [facility]; Protocol Last Admin: 02/25/21 20:52 Dose: 8 unit Documented by: Metformin HCl (Metformin 500 Mg Tab) 500 mg PO BID [facility] Last Admin: 02/25/21 20:53 Dose: 500 mg Documented by: Metoprolol Tartrate (Metoprolol Tartrate 50 Mg Tab) 50 mg PO BID [facility] Last Admin: 02/25/21 20:53 Dose: 50 mg Documented by: Naloxone HCl (Naloxone 0.4 Mg/Ml 1 Ml Vial) 0.2 mg IV Q2M PRN PRN Reason: Opioid Reversal Ondansetron HCl (Ondansetron 4 Mg/2 Ml Vial) 4 mg IVP Q6HR PRN PRN Reason: Nausea And Vomiting Last Admin: 02/21/21 15:48 Dose: 4 mg Documented by: Pravastatin Sodium (Pravastatin Sodium 80 Mg Tab) 80 mg PO HS [facility] Last Admin: 02/25/21 20:53 Dose: 80 mg Documented by: Zinc Sulfate (Zinc Sulfate 220 Mg Cap) 220 mg PO DAILY [facility] Last Admin: 02/25/21 08:50 Dose: 220 mg Documented by: Zolpidem Tartrate (Zolpidem 5 Mg Tab) 5 mg PO HS PRN PRN Reason: Insomnia Last Admin: 02/20/21 22:51 Dose: 5 mg Documented by: Past medical history to include: Hypertension, hyperlipidemia, lung cancer with removal of right middle and lower lobe lobectomy at [facility] in 2023 by chemotherapy. Diabetes type 2, Social history: . No alcohol. Does smoke in the past. A pack a day for close to 43 years. Family history: Reviewed, noncontributory to presentation Physical examination: VITAL SIGNS: 97.6, 94, 22, 1 38 x 86, 91% on 15 L GENERAL: Sitting up, awake short of breath LUNGS: Respiratory rate increased, PSYCH: Alert and oriented x3; mood and affect anxious. NEUROLOGICAL: Cranial nerves grossly intact; no facial asymmetry, moving all 4 limbs Rest of the physical exam as per pulmonary and nursing INVESTIGATIONS, reviewed in the clinical context: February 24: D-dimer 10.9 LDH 685 CRP 0.6 February 23: D-dimer 10.8 LDH 12/13/2006 CRP 17.4 February 22: D-dimer 8.47 LDH 882 CRP 2.3 February 19: D-dimer 3.6 CRP 42.6 WBC 6.3 hemoglobin 14.2 platelets 167 d-dimer 1.36 Potassium 4.5 bun 19 creatinine 1.2 to CRP 75.9 procalcitonin 0.17 Coronavirus [PCR]-detected EKG tracing personally reviewed by me-normal sinus rhythm Chest x-ray film personally reviewed by me-bilateral infiltrates Assessment and plan: -Acute bilateral COVID 19 pneumonia with symptoms present for close to 2 weeks prior to slow to respond on vitamin C vitamin D IV Decadron Pepcid zinc. ACTEMRA -Acute hypoxic respiratory failure secondary to COVID -slow to respond Remains on 80% % BiPAP. -Morbid obesity BMI 49.4 Weight loss measures and follow-up with PCP as an outpatient -Diabetes mellitus type 2 on oral hypoglycemic Continue with metformin. Accu-Cheks -Hyperlipidemia Continue with Pravachol -Essential hypertension Continue with Lopressor Discussed with the patient. Continue current medication. Plan.
[2021-02-26] MEDS: SODIUM CHLORIDE 0.9% 1,000 ML IV SCH ×2 (02:59→21:44)
[2021-02-26] MEDS: BENZOCAINE/MENTHOL LOZENG 1 EACH LOZENGE MUCOUS MEM PRN ×3 (05:11→21:44)
[2021-02-26] MEDS: ALBUTEROL HFA INHALER INHALATION SCH ×4 (07:17→19:41)
[2021-02-26 07:52] LABS: Glucose,Whole Blood 112 mg/dL (75-99)
[2021-02-26] MEDS: INSULIN ASPART (NovoLOG) 100 UNIT/ML VIAL SQ SCH ×4 (07:55→21:43)
[2021-02-26] MEDS: ASCORBIC ACID 500 MG TAB PO SCH (09:22)
[2021-02-26] MEDS: DEXAMETHASONE SOD PHOSPHATE 10 MG/ML 1 ML VIAL IV SCH (09:22)
[2021-02-26] MEDS: METOPROLOL TARTRATE 50 MG TAB PO SCH ×2 (09:22→21:44)
[2021-02-26] MEDS: CHOLECALCIFEROL 25 MCG (1000 IU) TABLET PO SCH (09:22)
[2021-02-26] MEDS: metFORMIN 500 MG TAB PO SCH ×2 (09:22→21:44)
[2021-02-26] MEDS: ZINC SULFATE 220 MG CAP PO SCH (09:22)
[2021-02-26] MEDS: FAMOTIDINE 20 MG TAB PO SCH (09:22)
[2021-02-26] MEDS: ENOXAPARIN 60 MG/0.6 ML SYRINGE SQ SCH ×2 (09:22→21:43)
[2021-02-26 11:51] LABS: Glucose,Whole Blood 168 mg/dL (75-99)
--- NOTE | 2021-02-26 16:41 | P.PN ---
Subjective Progress Note Date: 02/26/2102/26, the patient is being seen for a follow-up. She has been off the BiPAP for the past 48 hours, and currently she is on 100% on a beta facemask. She she is able to stop on a chair and she is communicating without any major difficulties. No altered mentation. She is quite positive and she has a good mindset in terms of her COVID-19 infection. As mentioned earlier, the patient is known to have COPD and she has undergone bilobectomy 4 previous history of lung cancer. the chest x-ray from yesterday was still showing bilateral lower lobe pulmonary infiltrates consistent with COVID-19 related pneumonia and infiltrates are essentially stable. The patient currently is doing well and the pulse ox is order of 91-92% on the percent on a beta facemask and the patient remains on Decadron 60 g IV every 24 hours pages also on Lovenox for DVT prophylaxis. She is taking Lovenox 60 mg subcue very 12 hours and her d-dimer is from yesterday was at 9.24. Rest of the blood work from today is within normal limits. White cell count is at 6.2 and the patient continues to have some degree of lymphopenia.no nausea. No vomiting. No diarrhea. No abdominal pain. Objective - Vital Signs Vital signs: Vital Signs Temp 97.8 F 02/26/21 13:30 Pulse 87 02/26/21 13:30 Resp 16 02/26/21 13:30 BP 142/62 02/26/21 13:30 Pulse Ox 90 L 02/26/21 13:30 Intake & Output 02/25/21 02/26/21 02/26/21 18:59 06:59 18:59 Intake Total 500 Output Total 1 1 Balance 500 -1 -1 Intake: IV 300 Sodium Chloride 0.9% 1, 300 000 ml @ 20 mls/hr IV . Q24H [facility] Rx#:[id number] Oral 200 Output: Stool 1 1 Other: Voiding Method Toilet Toilet # Voids 1 3 # Bowel Movements 1 1 - Exam No acute distress, oriented 3. She is currently on a 100% on a beta facemask with a pulse ox of 91%. Comfortable. Breathing is nonlabored. No use of accessory muscles of breathing.The patient is obese and the patient's BMI is 49.4. Head exam was generally normal. There was no scleral icterus or corneal arcus. Mucous membranes were moist. HEENT examination is grossly unremarkable. Neck supple. Full range of motion. No adenopathy thyromegaly or neck vein distention. Cardiovascular examination reveals regular rhythm rate. S1-S2 normal. No S3 or S4. No discernible murmur noted. Lungs reveal coarse bilateral rhonchi and a few scattered crackles. No wheezes. Breath sounds equal bilaterally but diminished throughout. Abdomen soft bowel sounds are heard. No masses or tenderness. Extremities are intact. No cyanosis clubbing or edema. Skin is without rash or lesion. Neurologic examination is brief but nonfocal. - Labs CBC & Chem 7: 02/18/21 05:30 02/19/21 06:39 Labs: Abnormal Lab Results - Last 24 Hours (Table) 02/25/21 02/25/21 02/26/21 Range/Units 17:31 20:20 00:44 POC Glucose (mg/dL) 157 H 276 H (75-99) mg/dL Lactate Dehydrogenase 1722 H (313-618) U/L 02/26/21 02/26/21 Range/Units 07:48 11:49 POC Glucose (mg/dL) 112 H 168 H (75-99) mg/dL Lactate Dehydrogenase (313-618) U/L Assessment and Plan Plan: 1 Acute hypoxemic respiratory failure secondary to COVID 19 pneumonitis. The patient was hospitalized for hypoxic respiratory failure the patient had progressive worsening in her oxygenation and the patient is currently on a BiPAP at a pressure of 12/6 with an FiO2 of 100%. subsequently, over the past 24 hours, the patient was taken off the BiPAP and currently she is on the 100% nonrebreather facemask with a pulse ox of 91-92%. She is comfortable. Sitting up on a recliner. Breathing is nonlabored. The patient is currently on Lovenox 60 mg subcu every 12 hours and the patient is also on Decadron 6 mg IV every 24 hours. She is on Decadron 6mg IV every 24 hours. The patient also received Tocilizumab infusion. 2 History of underlying COPD from previous tobacco use. 3 History of bronchogenic carcinoma, with previous right middle and right lower lobectomy. Surgery was done on [facility] February 2020. 4 Benign essential hypertension. 5 morbid obesity and the patient's BMI is 49 point 6 Prior history of tobacco use. Plan: keep 100% nonrebreather facemask Obtain follow-up chest x-ray in a.m. obtain follow-up inflammatory markers including LDH and CRP and d-dimer in a.m. Keep Lovenox for now the current dose and recheck d-dimer levels tomorrow The patient is currently on Decadron 6 mg IV every 24 hours clinically stable compared to yesterday. We'll continue to follow.
[2021-02-26 17:03] LABS: Glucose,Whole Blood 185 mg/dL (75-99)
[2021-02-26 20:30] LABS: Glucose,Whole Blood 226 mg/dL (75-99)
[2021-02-26] MEDS: PRAVASTATIN SODIUM 80 MG TAB PO SCH (21:44)
[2021-02-26] MEDS: ASPIRIN 81 MG PO SCH (21:44)
--- NOTE | 2021-02-26 23:32 | P.PN ---
Progress Note - Text Progress Note Date: 02/26/21 Chief Complaint: Short of breath History of presenting complaint: This is a very pleasant 65-year-old patient of Dr. rios. Chronic stable medical conditions include hypertension, hyperlipidemia, morbid obesity. Patient underwent right middle and right lower lobe lung lobectomy by Dr. Duran at [facility]. This was followed by chemotherapy. Patient had been in remission since then. Patient for 2 weeks has been having increasingly short of breath cough some chills. Patient's has a diagnoses of COVID. Denies any loss of smell or taste. No sore throat. Does feel exhausted. Decreased appetite. Patient's come back testing positive for COVID 19 pneumonia. Pulse ox on presentation was 83% Admitted with bilateral COVID 19 pneumonia, acute hypoxic respiratory failure. Started on IV Decadron and Lovenox. Pulmonary consulted. ACTEMRA-given on February 21. Today: up in a chair. On BiPAP. Short of breath. Eating about 100% Awake. Communicating Review of systems: Was done for constitutional, cardiovascular, GI, pulmonary. relevant finding as above Active Medications Albuterol Sulfate (Albuterol Hfa Inhaler) 2 puff INHALATION RT-QID [facility] Last Admin: 02/26/21 19:41 Dose: 2 puff Documented by: Ascorbic Acid (Ascorbic Acid 500 Mg Tab) 1,000 mg PO DAILY [facility] Last Admin: 02/26/21 09:22 Dose: 1,000 mg Documented by: Aspirin (Aspirin 81 Mg) 81 mg PO HS [facility] Last Admin: 02/26/21 21:44 Dose: 81 mg Documented by: Benzocaine/Menthol (Benzocaine/Menthol Lozeng 1 Each Lozenge) 1 each MUCOUS MEM Q4HR PRN PRN Reason: Sore Throat Last Admin: 02/26/21 21:44 Dose: 1 each Documented by: Cholecalciferol (Cholecalciferol 25 Mcg (1000 Iu) Tablet) 125 mcg PO DAILY [facility] Last Admin: 02/26/21 09:22 Dose: 125 mcg Documented by: Dexamethasone Sodium Phosphate (Dexamethasone Sod Phosphate 10 Mg/Ml 1 Ml Vial) 6 mg IV DAILY [facility] Last Admin: 02/26/21 09:22 Dose: 6 mg Documented by: Enoxaparin Sodium (Enoxaparin 60 Mg/0.6 Ml Syringe) 60 mg SQ Q12HR [facility] Last Admin: 02/26/21 21:43 Dose: 60 mg Documented by: Famotidine (Famotidine 20 Mg Tab) 20 mg PO DAILY [facility] Last Admin: 02/26/21 09:22 Dose: 20 mg Documented by: Sodium Chloride (Saline 0.9%) 1,000 mls @ 20 mls/hr IV .Q24H [facility] Last Admin: 02/26/21 21:44 Dose: 20 mls/hr Documented by: Insulin Aspart (Insulin Aspart (Novolog) 100 Unit/Ml Vial) 0 unit SQ ACHS [facility]; Protocol Last Admin: 02/26/21 21:43 Dose: 7 unit Documented by: Metformin HCl (Metformin 500 Mg Tab) 500 mg PO BID [facility] Last Admin: 02/26/21 21:44 Dose: 500 mg Documented by: Metoprolol Tartrate (Metoprolol Tartrate 50 Mg Tab) 50 mg PO BID [facility] Last Admin: 02/26/21 21:44 Dose: 50 mg Documented by: Naloxone HCl (Naloxone 0.4 Mg/Ml 1 Ml Vial) 0.2 mg IV Q2M PRN PRN Reason: Opioid Reversal Ondansetron HCl (Ondansetron 4 Mg/2 Ml Vial) 4 mg IVP Q6HR PRN PRN Reason: Nausea And Vomiting Last Admin: 02/21/21 15:48 Dose: 4 mg Documented by: Pravastatin Sodium (Pravastatin Sodium 80 Mg Tab) 80 mg PO HS [facility] Last Admin: 02/26/21 21:44 Dose: 80 mg Documented by: Zinc Sulfate (Zinc Sulfate 220 Mg Cap) 220 mg PO DAILY [facility] Last Admin: 02/26/21 09:22 Dose: 220 mg Documented by: Zolpidem Tartrate (Zolpidem 5 Mg Tab) 5 mg PO HS PRN PRN Reason: Insomnia Last Admin: 02/20/21 22:51 Dose: 5 mg Documented by: Past medical history to include: Hypertension, hyperlipidemia, lung cancer with removal of right middle and lower lobe lobectomy at [facility] in 2023 by chemotherapy. Diabetes type 2, Social history: . No alcohol. Does smoke in the past. A pack a day for close to 43 years. Family history: Reviewed, noncontributory to presentation Physical examination: VITAL SIGNS: 97.8, 87, 16, 142/62, 90% on 15 L nonrebreather GENERAL: Sitting up, awake breathing a bit better LUNGS: Respiratory rate increased, PSYCH: Alert and oriented x3; mood and affect anxious. NEUROLOGICAL: Cranial nerves grossly intact; no facial asymmetry, moving all 4 limbs Rest of the physical exam as per pulmonary and nursing INVESTIGATIONS, reviewed in the clinical context: February 24: D-dimer 10.9 LDH 685 CRP 0.6 February 23: D-dimer 10.8 LDH 12/13/2006 CRP 17.4 February 22: D-dimer 8.47 LDH 882 CRP 2.3 February 19: D-dimer 3.6 CRP 42.6 WBC 6.3 hemoglobin 14.2 platelets 167 d-dimer 1.36 Potassium 4.5 bun 19 creatinine 1.2 to CRP 75.9 procalcitonin 0.17 Coronavirus [PCR]-detected EKG tracing personally reviewed by me-normal sinus rhythm Chest x-ray film personally reviewed by me-bilateral infiltrates Assessment and plan: -Acute bilateral COVID 19 pneumonia with symptoms present for close to 2 weeks prior to slow to respond on vitamin C vitamin D IV Decadron Pepcid zinc. ACTEMRA -Acute hypoxic respiratory failure secondary to COVID -slow to respond On 15 L high flow Ventimask -Morbid obesity BMI 49.4 Weight loss measures and follow-up with PCP as an outpatient -Diabetes mellitus type 2 on oral hypoglycemic Continue with metformin. Accu-Cheks -Hyperlipidemia Continue with Pravachol -Essential hypertension Continue with Lopressor Discussed with the patient. Continue current medication.
--- NOTE | 2021-02-27 06:41 | XR ---
EXAMINATION TYPE: XR chest 1V DATE OF EXAM: 02/27/2021 CLINICAL HISTORY: Difficulty breathing progress study. TECHNIQUE: Single AP portable upright view of the chest is obtained. COMPARISON: Chest x-ray from 2 days earlier and older studies. FINDINGS: Persistent bilateral mid to lower lung opacities silhouetting the right and left heart bor ders. Cardiac silhouette size presumed stable and within normal limits. Degenerative changes right gl enohumeral joint redemonstrated. IMPRESSION: Persistent bilateral mid to lower lung multifocal and confluent opacities consistent with covid-19 infection, no significant change from most recent x-ray.
[2021-02-27 07:28] LABS: Glucose,Whole Blood 98 mg/dL (75-99)
[2021-02-27 07:56] LABS: C Reactive Protein 0.6 mg/dL (<1.0)
[2021-02-27] MEDS: INSULIN ASPART (NovoLOG) 100 UNIT/ML VIAL SQ SCH ×4 (08:03→21:02)
[2021-02-27] MEDS: ALBUTEROL HFA INHALER INHALATION SCH ×4 (08:55→19:15)
[2021-02-27] MEDS: ZINC SULFATE 220 MG CAP PO SCH (09:50)
[2021-02-27] MEDS: FAMOTIDINE 20 MG TAB PO SCH (09:50)
[2021-02-27] MEDS: ENOXAPARIN 60 MG/0.6 ML SYRINGE SQ SCH ×2 (09:50→21:02)
[2021-02-27] MEDS: ASCORBIC ACID 500 MG TAB PO SCH (09:50)
[2021-02-27] MEDS: METOPROLOL TARTRATE 50 MG TAB PO SCH ×2 (09:50→21:03)
[2021-02-27] MEDS: CHOLECALCIFEROL 25 MCG (1000 IU) TABLET PO SCH (09:51)
[2021-02-27] MEDS: metFORMIN 500 MG TAB PO SCH ×2 (09:51→21:03)
[2021-02-27] MEDS: DEXAMETHASONE SOD PHOSPHATE 10 MG/ML 1 ML VIAL IV SCH (09:51)
[2021-02-27] MEDS: BENZOCAINE/MENTHOL LOZENG 1 EACH LOZENGE MUCOUS MEM PRN ×3 (09:58→21:02)
[2021-02-27 11:11] LABS: Glucose,Whole Blood 168 mg/dL (75-99)
[2021-02-27] MEDS ORDERED: FUROSEMIDE 10 MG/ML 4 ML VIAL IV STA (15:51)
--- NOTE | 2021-02-27 15:51 | P.PN ---
Subjective Progress Note Date: 02/27/21 02/27/2021, the patient is still off the BiPAP on the percent nonrebreather facemask. She is quite comfortable and she still sitting up on a chair most of the time. Her pulse ox is borderline ranging between 88-91%. She is using incentive spirometer. A repeat chest x-ray was done and showed persistent pulmonary infiltration of the lung bases bilaterally. Note that the patient undergone previous lobectomy on the right and there is obvious volume loss on the right. She is using incentive spirometer. No fever. No chills. She has an excellent appetite and she continues to eat without any nausea vomiting or diarrhea. She has a good taste and smell. She remains on Lovenox and she is cu rrently on a dose of 60 mg subcu every 12 hours. She is also on Decadron 6 mg IV every 24 hours. IV fluids are to KVO and the patient is having some increased swelling in lower extremities bilaterally. She would benefit from a dose of Lasix. The patient had a d-dimer of 10.5, LDH level is elevated at 1724 and the blood sugars are mildly elevated and the patient has a mild component of steroid-induced hyperglycemia. Objective - Vital Signs Vital signs: Vital Signs Temp 97.7 F 02/27/21 13:20 Pulse 73 02/27/21 13:20 Resp 16 02/27/21 13:20 BP 123/66 02/27/21 13:20 Pulse Ox 90 L 02/27/21 13:20 Intake & Output 02/26/21 02/27/21 02/27/21 18:59 06:59 18:59 Output Total 1 1 1 Balance -1 -1 -1 Output: Stool 1 1 1 Other: Voiding Method Toilet Toilet Toilet # Voids 2 - Exam No acute distress, oriented 3. She is currently on a 100% on a beta facemask with a pulse ox of 91%. Comfortable. Breathing is nonlabored. No use of accessory muscles of breathing.The patient is obese and the patient's BMI is 49.4. Head exam was generally normal. There was no scleral icterus or corneal arcus. Mucous membranes were moist. HEENT examination is grossly unremarkable. Neck supple. Full range of motion. No adenopathy thyromegaly or neck vein distention. Cardiovascular examination reveals regular rhythm rate. S1-S2 normal. No S3 or S4. No discernible murmur noted. Lungs reveal coarse bilateral rhonchi and a few scattered crackles. No wheezes. Breath sounds equal bilaterally but diminished throughout. Abdomen soft bowel sounds are heard. No masses or tenderness. Extremities are intact. No cyanosis clubbing or edema. Skin is without rash or lesion. Neurologic examination is brief but nonfocal. - Labs CBC & Chem 7: 02/18/21 05:30 02/19/21 06:39 Labs: Abnormal Lab Results - Last 24 Hours (Table) 02/26/21 02/26/21 02/27/21 Range/Units 17:01 20:28 05:48 D-Dimer 10.15 H (<0.60) mg/L FEU POC Glucose (mg/dL) 185 H 226 H (75-99) mg/dL Lactate Dehydrogenase (313-618) U/L 02/27/21 02/27/21 Range/Units 05:48 11:09 D-Dimer (<0.60) mg/L FEU POC Glucose (mg/dL) 168 H (75-99) mg/dL Lactate Dehydrogenase 1724 H (313-618) U/L Assessment and Plan Plan: 1 Acute hypoxemic respiratory failure secondary to COVID 19 pneumonitis. The patient was hospitalized for hypoxic respiratory failure the patient had progressive worsening in her oxygenation and the patient is currently on a BiPAP at a pressure of 12/6 with an FiO2 of 100%. subsequently, over the past 24 hours, the patient was taken off the BiPAP and currently she is on the 100% nonrebreather facemask with a pulse ox of 91-92%. She is comfortable. Sitting up on a recliner. Breathing is nonlabored. The patient is currently on Lovenox 60 mg subcu every 12 hours and the patient is also on Decadron 6 mg IV every 24 hours. The patient also received Tocilizumab infusion. The chest x-ray findings from 02/27/2021 is showing stable bilateral pulmonary infiltrates involving the lower lobes. The patient is still having borderline oxygenation. Nevertheless, she is quite comfortable and there is no further decompensation and respiratory status. 2 History of underlying COPD from previous tobacco use. 3 History of bronchogenic carcinoma, with previous right middle and right lower lobectomy. Surgery was done on [facility] February 2020. 4 Benign essential hypertension. 5 morbid obesity and the patient's BMI is 49 point 6 Prior history of tobacco use. Plan: keep 100% nonrebreather facemask Monitor the saturation and we'll try to wean once the saturation improves. Chest x-ray from today was noted. Inflammatory markers are also noted. Continue Lovenox Continue Decadron Deep breathing and pulmonary toileting Lasix 40 mg IV push 1 We'll continue to follow
[2021-02-27 17:19] LABS: Glucose,Whole Blood 177 mg/dL (75-99)
[2021-02-27 20:47] LABS: Glucose,Whole Blood 281 mg/dL (75-99)
[2021-02-27] MEDS: ASPIRIN 81 MG PO SCH (21:02)
[2021-02-27] MEDS: PRAVASTATIN SODIUM 80 MG TAB PO SCH (21:03)
[2021-02-27] MEDS: SODIUM CHLORIDE 0.9% 1,000 ML IV SCH (21:28)
--- NOTE | 2021-02-27 23:10 | P.PN ---
Progress Note - Text Progress Note Date: 02/27/21 Chief Complaint: Short of breath History of presenting complaint: This is a very pleasant 65-year-old patient of Dr. rios. Chronic stable medical conditions include hypertension, hyperlipidemia, morbid obesity. Patient underwent right middle and right lower lobe lung lobectomy by Dr. Duran at [facility]. This was followed by chemotherapy. Patient had been in remission since then. Patient for 2 weeks has been having increasingly short of breath cough some chills. Patient's has a diagnoses of COVID. Denies any loss of smell or taste. No sore throat. Does feel exhausted. Decreased appetite. Patient's come back testing positive for COVID 19 pneumonia. Pulse ox on presentation was 83% Admitted with bilateral COVID 19 pneumonia, acute hypoxic respiratory failure. Started on IV Decadron and Lovenox. Pulmonary consulted. ACTEMRA-given on February 21. Today: up in a chair. On BiPAP. Short of breath. Eating-100% Communicating Review of systems: Was done for constitutional, cardiovascular, GI, pulmonary. relevant finding as above Active Medications Albuterol Sulfate (Albuterol Hfa Inhaler) 2 puff INHALATION RT-QID [facility] Last Admin: 02/27/21 19:15 Dose: 2 puff Documented by: Ascorbic Acid (Ascorbic Acid 500 Mg Tab) 1,000 mg PO DAILY [facility] Last Admin: 02/27/21 09:50 Dose: 1,000 mg Documented by: Aspirin (Aspirin 81 Mg) 81 mg PO HS [facility] Last Admin: 02/27/21 21:02 Dose: 81 mg Documented by: Benzocaine/Menthol (Benzocaine/Menthol Lozeng 1 Each Lozenge) 1 each MUCOUS MEM Q4HR PRN PRN Reason: Sore Throat Last Admin: 02/27/21 21:02 Dose: 1 each Documented by: Cholecalciferol (Cholecalciferol 25 Mcg (1000 Iu) Tablet) 125 mcg PO DAILY [facility] Last Admin: 02/27/21 09:51 Dose: 125 mcg Documented by: Dexamethasone Sodium Phosphate (Dexamethasone Sod Phosphate 10 Mg/Ml 1 Ml Vial) 6 mg IV DAILY [facility] Last Admin: 02/27/21 09:51 Dose: 6 mg Documented by: Enoxaparin Sodium (Enoxaparin 60 Mg/0.6 Ml Syringe) 60 mg SQ Q12HR [facility] Last Admin: 02/27/21 21:02 Dose: 60 mg Documented by: Famotidine (Famotidine 20 Mg Tab) 20 mg PO DAILY [facility] Last Admin: 02/27/21 09:50 Dose: 20 mg Documented by: Sodium Chloride (Saline 0.9%) 1,000 mls @ 20 mls/hr IV .Q24H [facility] Last Admin: 02/27/21 21:28 Dose: Not Given Documented by: Insulin Aspart (Insulin Aspart (Novolog) 100 Unit/Ml Vial) 0 unit SQ ACHS [facility]; Protocol Last Admin: 02/27/21 21:02 Dose: 8 unit Documented by: Metformin HCl (Metformin 500 Mg Tab) 500 mg PO BID [facility] Last Admin: 02/27/21 21:03 Dose: 500 mg Documented by: Metoprolol Tartrate (Metoprolol Tartrate 50 Mg Tab) 50 mg PO BID [facility] Last Admin: 02/27/21 21:03 Dose: 50 mg Documented by: Naloxone HCl (Naloxone 0.4 Mg/Ml 1 Ml Vial) 0.2 mg IV Q2M PRN PRN Reason: Opioid Reversal Ondansetron HCl (Ondansetron 4 Mg/2 Ml Vial) 4 mg IVP Q6HR PRN PRN Reason: Nausea And Vomiting Last Admin: 02/21/21 15:48 Dose: 4 mg Documented by: Pravastatin Sodium (Pravastatin Sodium 80 Mg Tab) 80 mg PO HS [facility] Last Admin: 02/27/21 21:03 Dose: 80 mg Documented by: Zinc Sulfate (Zinc Sulfate 220 Mg Cap) 220 mg PO DAILY [facility] Last Admin: 02/27/21 09:50 Dose: 220 mg Documented by: Zolpidem Tartrate (Zolpidem 5 Mg Tab) 5 mg PO HS PRN PRN Reason: Insomnia Last Admin: 02/20/21 22:51 Dose: 5 mg Documented by: Past medical history to include: Hypertension, hyperlipidemia, lung cancer with removal of right middle and lower lobe lobectomy at [facility] in 2023 by chemotherapy. Diabetes type 2, Social history: . No alcohol. Does smoke in the past. A pack a day for close to 43 years. Family history: Reviewed, noncontributory to presentation Physical examination: VITAL SIGNS: 87.7, 73, 16, 123/76, 90% on 15 L nonrebreather GENERAL: Sitting up, some shortness of breath LUNGS: Respiratory rate increased, PSYCH: Alert and oriented x3; mood and affect anxious. NEUROLOGICAL: Cranial nerves grossly intact; no facial asymmetry, moving all 4 limbs Rest of the physical exam as per pulmonary and nursing INVESTIGATIONS, reviewed in the clinical context: February 27: D-dimer 10.1 LDH 1724 CRP 0.6 February 24: D-dimer 10.9 LDH 685 CRP 0.6 February 23: D-dimer 10.8 LDH 12/13/2006 CRP 17.4 February 22: D-dimer 8.47 LDH 882 CRP 2.3 February 19: D-dimer 3.6 CRP 42.6 WBC 6.3 hemoglobin 14.2 platelets 167 d-dimer 1.36 Potassium 4.5 bun 19 creatinine 1.2 to CRP 75.9 procalcitonin 0.17 Coronavirus [PCR]-detected EKG tracing personally reviewed by me-normal sinus rhythm Chest x-ray film personally reviewed by me-bilateral infiltrates Assessment and plan: -Acute bilateral COVID 19 pneumonia with symptoms present for close to 2 weeks prior to slow to respond on vitamin C vitamin D IV Decadron Pepcid zinc. ACTEMRA -Acute hypoxic respiratory failure secondary to COVID -slow to respond On 15 L high flow Ventimask -Morbid obesity BMI 49.4 Weight loss measures and follow-up with PCP as an outpatient -Diabetes mellitus type 2 on oral hypoglycemic, uncontrolled with hyperglycemia Continue with metformin. Accu-Cheks -Hyperlipidemia Continue with Pravachol -Essential hypertension Continue with Lopressor Discussed with the patient. Continue current medication.
[2021-02-28] MEDS: BENZOCAINE/MENTHOL LOZENG 1 EACH LOZENGE MUCOUS MEM PRN ×3 (05:56→21:32)
[2021-02-28 06:53] LABS: Glucose,Whole Blood 108 mg/dL (75-99)
[2021-02-28] MEDS: INSULIN ASPART (NovoLOG) 100 UNIT/ML VIAL SQ SCH ×4 (07:19→21:27)
[2021-02-28] MEDS: ALBUTEROL HFA INHALER INHALATION SCH ×4 (08:21→21:21)
[2021-02-28] MEDS: METOPROLOL TARTRATE 50 MG TAB PO SCH ×2 (08:27→21:25)
[2021-02-28] MEDS: DEXAMETHASONE SOD PHOSPHATE 10 MG/ML 1 ML VIAL IV SCH (08:27)
[2021-02-28] MEDS: ENOXAPARIN 60 MG/0.6 ML SYRINGE SQ SCH ×2 (08:27→21:26)
[2021-02-28] MEDS: metFORMIN 500 MG TAB PO SCH ×2 (08:28→21:27)
[2021-02-28] MEDS: CHOLECALCIFEROL 25 MCG (1000 IU) TABLET PO SCH (08:28)
[2021-02-28] MEDS: ASCORBIC ACID 500 MG TAB PO SCH (08:28)
[2021-02-28] MEDS: FAMOTIDINE 20 MG TAB PO SCH (08:28)
[2021-02-28] MEDS: ZINC SULFATE 220 MG CAP PO SCH (08:28)
[2021-02-28 11:02] LABS: Glucose,Whole Blood 208 mg/dL (75-99)
--- NOTE | 2021-02-28 14:36 | P.PN ---
Subjective Progress Note Date: 02/28/21 Principal diagnosis: Shortness of breath. Patient was reevaluated today on 02/18/2021, patient is about the same compared to yesterday, remains on 6 L high flow nasal cannula, O2 saturation is 88% to 92%. Patient is sitting at a bedside chair, does not seem to be in any distress. Patient is on the Covid 19 cocktail. And so far she is doing fairly well. CBC is relatively normal. D-dimer is 1.36. Creatinine is slightly elevated at 1.22. C-reactive protein was 76 and her LDH was 1267 yesterday on admission. Reevaluated today on 02/19/2021, patient is feeling a bit worse today, she is having more symptoms of shortness of breath, she is now on 16 L high flow cannula, and her O2 saturation is in the high 80s, patient was on 6 L yesterday, and now she is having some slightly blood-tinged sputum. Patient will have a venous Doppler today, we'll recommend a VQ scan, may even recommend a CT angiogram of the chest to rule out pulmonary embolism. Patient had a creatinine of 1.22 on admission, and I have ordered a repeat basic metabolic profile this morning. In the meantime I will go ahead and start the patient on Lovenox 40 mg subcu daily. Progress note dated 02/20/2021. Currently, the patient is on 15 L high flow nasal cannula. She has been using BiPAP, with settings of EPAP 6 IPAP 12 and 100%. In addition, the patient is receiving saline at 75 mL an hour. Currently, she sitting at the bedside. She isn't feeling so great. She states that she's very short of breath still, and is coughing. She's not producing any phlegm. There is no fever or chills. No chest pain or chest discomfort. No new labs today other than a d-dimer of 6.2, and a C-reactive protein of 63.1. Dopplers of the bilateral lower extremity showed no evidence of DVT. Ventilation/perfusion lung scan was low probability for pulmonary embolism. Progress note dated 02/28/2021. 65-year-old female, who is been the hospital now for about 11 days. I saw her last on February 20. At that time, she was on BiPAP. Currently, she is receiving a nonrebreather mask. The patient is also getting saline at 20 mL an hour. She believes that she is doing better and feeling better. She states that she is much less short of breath than when I saw her last. The patient has not had any recent laboratory data. Most recent chest x-ray was on February 27, which showed persistent bilateral infiltrates. Objective - Vital Signs Vital signs: Vital Signs Temp 97.4 F L 02/28/21 07:56 Pulse 74 02/28/21 08:00 Resp 18 02/28/21 08:00 BP 128/80 02/28/21 07:56 Pulse Ox 89 L 02/28/21 07:56 Intake & Output 02/27/21 02/28/21 02/28/21 18:59 06:59 18:59 Intake Total 600 Output Total 1 1 1 Balance -1 -1 599 Intake: Oral 600 Output: Stool 1 1 1 Other: Voiding Method Toilet Toilet Toilet # Voids 5 2 # Bowel Movements 2 - Exam No acute distress, oriented 3. No conversational dyspnea or use of accessory muscles. Saturations are in the low 90s, on a nonrebreather mask. HEENT examination is grossly unremarkable. Neck supple. Full range of motion. No adenopathy thyromegaly or neck vein distention. Cardiovascular examination reveals regular rhythm rate. S1-S2 normal. No S3 or S4. No discernible murmur noted. Heart rate 77 bpm. Lungs reveal coarse bilateral rhonchi and a few scattered crackles. No wheezes. Breath sounds equal bilaterally but diminished throughout. Abdomen soft bowel sounds are heard. No masses or tenderness. Extremities are intact. No cyanosis clubbing or edema. Skin is without rash or lesion. Neurologic examination is brief but nonfocal. - Labs CBC & Chem 7: 02/18/21 05:30 02/19/21 06:39 Labs: Abnormal Lab Results - Last 24 Hours (Table) 02/27/21 02/27/21 02/28/21 Range/Units 17:18 20:45 06:51 POC Glucose (mg/dL) 177 H 281 H 108 H (75-99) mg/dL 02/28/21 Range/Units 11:00 POC Glucose (mg/dL) 208 H (75-99) mg/dL Assessment and Plan Assessment: Acute hypoxemic respiratory failure secondary to COVID 19 pneumonitis. History of underlying COPD from previous tobacco use. History of bronchogenic carcinoma, with previous right middle and right lower lobectomy. Surgery was done on [facility] February 2020. Benign essential hypertension. History of hemoptysis. Prior history of tobacco use. Morbid obesity. Plan: Plan dated 02/20/2021. The patient is currently on high flow nasal O2. I asked her to move about in bed when she is lying down. Right side down, left side down, supine, and even prone if possible. Dopplers of the lower extremities were negative for DVT. Ventilation perfusion lung scan was low probability for pulmonary embolism. Medications are reviewed. We will continue to follow the patient. Additional recommendations and suggestions are forthcoming. Plan dated 02/28/2021. Currently, the patient is getting saline at 20 mL an hour, and also a nonrebreather mask. The patient did receive, Decadron, Lovenox, and TOCI. Currently, the patient feels like she is improving. Dopplers of the lower extremities were negative for DVT. Ventilation perfusion lung scan was low probability for pulmonary embolism. Medications are reviewed. We'll continue to follow. Prognosis is guarded. Time with Patient: Less than 30
[2021-02-28 17:05] LABS: Glucose,Whole Blood 191 mg/dL (75-99)
[2021-02-28 20:05] LABS: Glucose,Whole Blood 262 mg/dL (75-99)
[2021-02-28] MEDS: ASPIRIN 81 MG PO SCH (21:25)
[2021-02-28] MEDS: ZOLPIDEM 5 MG TAB PO PRN (21:27)
[2021-02-28] MEDS: SODIUM CHLORIDE 0.9% 1,000 ML IV SCH (21:32)
[2021-02-28] MEDS: PRAVASTATIN SODIUM 80 MG TAB PO SCH (21:38)
--- NOTE | 2021-02-28 23:22 | P.PN ---
Progress Note - Text Progress Note Date: 02/28/21 Chief Complaint: Short of breath History of presenting complaint: This is a very pleasant 65-year-old patient of Dr. rios. Chronic stable medical conditions include hypertension, hyperlipidemia, morbid obesity. Patient underwent right middle and right lower lobe lung lobectomy by Dr. Duran at [facility]. This was followed by chemotherapy. Patient had been in remission since then. Patient for 2 weeks has been having increasingly short of breath cough some chills. Patient's has a diagnoses of COVID. Denies any loss of smell or taste. No sore throat. Does feel exhausted. Decreased appetite. Patient's come back testing positive for COVID 19 pneumonia. Pulse ox on presentation was 83% Admitted with bilateral COVID 19 pneumonia, acute hypoxic respiratory failure. Started on IV Decadron and Lovenox. Pulmonary consulted. ACTEMRA-given on February 21. Today: On BiPAP. Short of breath. Eating-about 75- 100% Communicating. Up in chair. Review of systems: Was done for constitutional, cardiovascular, GI, pulmonary. relevant finding as above Active Medications Albuterol Sulfate (Albuterol Hfa Inhaler) 2 puff INHALATION RT-QID [facility] Last Admin: 02/28/21 21:21 Dose: 2 puff Documented by: Ascorbic Acid (Ascorbic Acid 500 Mg Tab) 1,000 mg PO DAILY [facility] Last Admin: 02/28/21 08:28 Dose: 1,000 mg Documented by: Aspirin (Aspirin 81 Mg) 81 mg PO HS [facility] Last Admin: 02/28/21 21:25 Dose: 81 mg Documented by: Benzocaine/Menthol (Benzocaine/Menthol Lozeng 1 Each Lozenge) 1 each MUCOUS MEM Q4HR PRN PRN Reason: Sore Throat Last Admin: 02/28/21 21:32 Dose: 1 each Documented by: Cholecalciferol (Cholecalciferol 25 Mcg (1000 Iu) Tablet) 125 mcg PO DAILY [facility] Last Admin: 02/28/21 08:28 Dose: 125 mcg Documented by: Dexamethasone Sodium Phosphate (Dexamethasone Sod Phosphate 10 Mg/Ml 1 Ml Vial) 6 mg IV DAILY [facility] Last Admin: 02/28/21 08:27 Dose: 6 mg Documented by: Enoxaparin Sodium (Enoxaparin 60 Mg/0.6 Ml Syringe) 60 mg SQ Q12HR [facility] Last Admin: 02/28/21 21:26 Dose: 60 mg Documented by: Famotidine (Famotidine 20 Mg Tab) 20 mg PO DAILY [facility] Last Admin: 02/28/21 08:28 Dose: 20 mg Documented by: Sodium Chloride (Saline 0.9%) 1,000 mls @ 20 mls/hr IV .Q24H [facility] Last Admin: 02/28/21 21:32 Dose: 20 mls/hr Documented by: Insulin Aspart (Insulin Aspart (Novolog) 100 Unit/Ml Vial) 0 unit SQ ACHS [facility]; Protocol Last Admin: 02/28/21 21:27 Dose: 8 unit Documented by: Metformin HCl (Metformin 500 Mg Tab) 500 mg PO BID [facility] Last Admin: 02/28/21 21:27 Dose: 500 mg Documented by: Metoprolol Tartrate (Metoprolol Tartrate 50 Mg Tab) 50 mg PO BID [facility] Last Admin: 02/28/21 21:25 Dose: 50 mg Documented by: Naloxone HCl (Naloxone 0.4 Mg/Ml 1 Ml Vial) 0.2 mg IV Q2M PRN PRN Reason: Opioid Reversal Ondansetron HCl (Ondansetron 4 Mg/2 Ml Vial) 4 mg IVP Q6HR PRN PRN Reason: Nausea And Vomiting Last Admin: 02/21/21 15:48 Dose: 4 mg Documented by: Pravastatin Sodium (Pravastatin Sodium 80 Mg Tab) 80 mg PO HS [facility] Last Admin: 02/28/21 21:38 Dose: 80 mg Documented by: Zinc Sulfate (Zinc Sulfate 220 Mg Cap) 220 mg PO DAILY [facility] Last Admin: 02/28/21 08:28 Dose: 220 mg Documented by: Zolpidem Tartrate (Zolpidem 5 Mg Tab) 5 mg PO HS PRN PRN Reason: Insomnia Last Admin: 02/28/21 21:27 Dose: 5 mg Documented by: Past medical history to include: Hypertension, hyperlipidemia, lung cancer with removal of right middle and lower lobe lobectomy at [facility] in 2023 by chemotherapy. Diabetes type 2, Social history: . No alcohol. Does smoke in the past. A pack a day for close to 43 years. Family history: Reviewed, noncontributory to presentation Physical examination: VITAL SIGNS: 98.1, 76, 16, 106/73, 90% on 15 L nonrebreather GENERAL: Sitting up in the chair, some shortness of breath LUNGS: Respiratory rate increased, PSYCH: Alert and oriented x3; mood and affect anxious. NEUROLOGICAL: Cranial nerves grossly intact; no facial asymmetry, moving all 4 limbs Rest of the physical exam as per pulmonary and nursing INVESTIGATIONS, reviewed in the clinical context: February 28: February 27: D-dimer 10.1 LDH 1724 CRP 0.6 February 24: D-dimer 10.9 LDH 685 CRP 0.6 February 23: D-dimer 10.8 LDH 12/13/2006 CRP 17.4 February 22: D-dimer 8.47 LDH 882 CRP 2.3 February 19: D-dimer 3.6 CRP 42.6 WBC 6.3 hemoglobin 14.2 platelets 167 d-dimer 1.36 Potassium 4.5 bun 19 creatinine 1.2 to CRP 75.9 procalcitonin 0.17 Coronavirus [PCR]-detected EKG tracing personally reviewed by me-normal sinus rhythm Chest x-ray film personally reviewed by me-bilateral infiltrates Assessment and plan: -Acute bilateral COVID 19 pneumonia with symptoms present for close to 2 weeks prior to presentation- slow to respond on vitamin C vitamin D IV Decadron Pepcid zinc. ACTEMRA/received -Acute hypoxic respiratory failure secondary to COVID -slow to respond On 15 L high flow Ventimask -Morbid obesity BMI 49.4 Weight loss measures and follow-up with PCP as an outpatient -Diabetes mellitus type 2 on oral hypoglycemic, uncontrolled with hyperglycemia Continue with metformin. Accu-Cheks. Add Levemir -Hyperlipidemia Continue with Pravachol -Essential hypertension Continue with Lopressor -Acute medical debility from COVID 19 PTOT Continue current medication treatment plan. Follow with pulmonary. Patient is concerned about the hospital medical bills she did receive on my behalf. I did explain to her the process and my role in her care
[2021-03-01] MEDS: BENZOCAINE/MENTHOL LOZENG 1 EACH LOZENGE MUCOUS MEM PRN ×4 (03:52→21:08)
[2021-03-01 06:59] LABS: Glucose,Whole Blood 93 mg/dL (75-99)
[2021-03-01] MEDS: INSULIN ASPART (NovoLOG) 100 UNIT/ML VIAL SQ SCH ×4 (07:31→20:58)
[2021-03-01] MEDS: DEXAMETHASONE SOD PHOSPHATE 10 MG/ML 1 ML VIAL IV SCH (08:29)
[2021-03-01] MEDS: ENOXAPARIN 60 MG/0.6 ML SYRINGE SQ SCH ×2 (08:29→20:57)
[2021-03-01] MEDS: CHOLECALCIFEROL 25 MCG (1000 IU) TABLET PO SCH (08:29)
[2021-03-01] MEDS: metFORMIN 500 MG TAB PO SCH ×2 (08:29→20:58)
[2021-03-01] MEDS: METOPROLOL TARTRATE 50 MG TAB PO SCH ×2 (08:29→20:58)
[2021-03-01] MEDS: ASCORBIC ACID 500 MG TAB PO SCH (08:29)
[2021-03-01] MEDS: FAMOTIDINE 20 MG TAB PO SCH (08:30)
[2021-03-01] MEDS: ZINC SULFATE 220 MG CAP PO SCH (08:30)
[2021-03-01 08:31] LABS: C Reactive Protein 0.6 mg/dL (<1.0)
[2021-03-01] MEDS: ALBUTEROL HFA INHALER INHALATION SCH ×4 (09:23→19:41)
[2021-03-01 11:12] LABS: Glucose,Whole Blood 188 mg/dL (75-99)
--- NOTE | 2021-03-01 14:10 | P.PN ---
Subjective Progress Note Date: 03/01/21 Principal diagnosis: Shortness of breath. Patient was reevaluated today on 02/18/2021, patient is about the same compared to yesterday, remains on 6 L high flow nasal cannula, O2 saturation is 88% to 92%. Patient is sitting at a bedside chair, does not seem to be in any distress. Patient is on the Covid 19 cocktail. And so far she is doing fairly well. CBC is relatively normal. D-dimer is 1.36. Creatinine is slightly elevated at 1.22. C-reactive protein was 76 and her LDH was 1267 yesterday on admission. Reevaluated today on 02/19/2021, patient is feeling a bit worse today, she is having more symptoms of shortness of breath, she is now on 16 L high flow cannula, and her O2 saturation is in the high 80s, patient was on 6 L yesterday, and now she is having some slightly blood-tinged sputum. Patient will have a venous Doppler today, we'll recommend a VQ scan, may even recommend a CT angiogram of the chest to rule out pulmonary embolism. Patient had a creatinine of 1.22 on admission, and I have ordered a repeat basic metabolic profile this morning. In the meantime I will go ahead and start the patient on Lovenox 40 mg subcu daily. Progress note dated 02/20/2021. Currently, the patient is on 15 L high flow nasal cannula. She has been using BiPAP, with settings of EPAP 6 IPAP 12 and 100%. In addition, the patient is receiving saline at 75 mL an hour. Currently, she sitting at the bedside. She isn't feeling so great. She states that she's very short of breath still, and is coughing. She's not producing any phlegm. There is no fever or chills. No chest pain or chest discomfort. No new labs today other than a d-dimer of 6.2, and a C-reactive protein of 63.1. Dopplers of the bilateral lower extremity showed no evidence of DVT. Ventilation/perfusion lung scan was low probability for pulmonary embolism. Progress note dated 02/28/2021. 65-year-old female, who is been the hospital now for about 11 days. I saw her last on February 20. At that time, she was on BiPAP. Currently, she is receiving a nonrebreather mask. The patient is also getting saline at 20 mL an hour. She believes that she is doing better and feeling better. She states that she is much less short of breath than when I saw her last. The patient has not had any recent laboratory data. Most recent chest x-ray was on February 27, which showed persistent bilateral infiltrates. Progress note dated 03/01/2021. 65-year-old female, who is been hospitalized now for about 12 days. I saw her yesterday follow-up. Currently, she is on nonrebreather mask. She's also g etting saline at 20 mL an hour. She is currently sitting up at the bedside. She feels about the same today as she did yesterday. Saturations are 91%, on the nonrebreather. No new labs today. No new x-rays today. The patient denies fever and chills. She denies chest pain or chest discomfort. She denies any nausea, vomiting, or diarrhea. She also denies all genitourinary complaints. Objective - Vital Signs Vital signs: Vital Signs Temp 97.7 F 03/01/21 08:00 Pulse 74 03/01/21 08:00 Resp 16 03/01/21 08:00 BP 121/74 03/01/21 08:00 Pulse Ox 91 L 03/01/21 09:23 Intake & Output 02/28/21 03/01/21 03/01/21 18:59 06:59 18:59 Intake Total 600 600 Output Total 1 2 1 Balance 599 -2 599 Intake: Oral 600 600 Output: Stool 1 2 1 Other: Voiding Method Toilet Toilet Toilet # Voids 4 1 # Bowel Movements 1 1 - Exam No acute distress, oriented 3. No conversational dyspnea or use of accessory muscles. Saturations are in the low 90s, on a nonrebreather mask. HEENT examination is grossly unremarkable. Neck supple. Full range of motion. No adenopathy thyromegaly or neck vein distention. Cardiovascular examination reveals regular rhythm rate. S1-S2 normal. No S3 or S4. No discernible murmur noted. Heart rate 66 bpm. Lungs reveal coarse bilateral rhonchi and a few scattered crackles. No wheezes. Breath sounds equal bilaterally but diminished throughout. Abdomen soft bowel sounds are heard. No masses or tenderness. Extremities are intact. No cyanosis clubbing or edema. Skin is without rash or lesion. Neurologic examination is brief but nonfocal. - Labs CBC & Chem 7: 02/18/21 05:30 02/19/21 06:39 Labs: Abnormal Lab Results - Last 24 Hours (Table) 02/28/21 02/28/21 03/01/21 Range/Units 17:04 20:03 06:43 D-Dimer 7.82 H (<0.60) mg/L FEU POC Glucose (mg/dL) 191 H 262 H (75-99) mg/dL Lactate Dehydrogenase (313-618) U/L 03/01/21 03/01/21 Range/Units 06:43 11:11 D-Dimer (<0.60) mg/L FEU POC Glucose (mg/dL) 188 H (75-99) mg/dL Lactate Dehydrogenase 1603 H (313-618) U/L Assessment and Plan Assessment: Acute hypoxemic respiratory failure secondary to COVID 19 pneumonitis. History of underlying COPD from previous tobacco use. History of bronchogenic carcinoma, with previous right middle and right lower lobectomy. Surgery was done on [facility] February 2020. Benign essential hypertension. History of hemoptysis. Prior history of tobacco use. Morbid obesity. Plan: Plan dated 02/20/2021. The patient is currently on high flow nasal O2. I asked her to move about in bed when she is lying down. Right side down, left side down, supine, and even prone if possible. Dopplers of the lower extremities were negative for DVT. Ventilation perfusion lung scan was low probability for pulmonary embolism. Medications are reviewed. We will continue to follow the patient. Additional recommendations and suggestions are forthcoming. Plan dated 02/28/2021. Currently, the patient is getting saline at 20 mL an hour, and also a nonrebreather mask. The patient did receive, Decadron, Lovenox, and TOCI. Currently, the patient feels like she is improving. Dopplers of the lower extremities were negative for DVT. Ventilation perfusion lung scan was low probability for pulmonary embolism. Medications are reviewed. We'll continue to follow. Prognosis is guarded. Plan dated 03/01/2021. Currently, the patient remains on a nonrebreather mass. The patient is receiving Decadron, Lovenox, and did receive TOCI. Dopplers of the lower extremities were negative for DVT. Ventilation perfusion lung scan was low probability for pulmonary embolism. The patient continues to be stable, but does not really show much improvement overall. We will continue to follow make recommendations were needed. Prognosis is guarded. Time with Patient: Less than 30
--- NOTE | 2021-03-01 16:19 | P.PN ---
Subjective From records: This is a very pleasant 65-year-old patient of Dr. rios. Chronic stable medical conditions include hypertension, hyperlipidemia, morbid obesity. Patient underwent right middle and right lower lobe lung lobectomy by Dr. Duran at [facility]. This was followed by chemotherapy. Patient had been in remission since then. Patient for 2 weeks has been having increasingly short of breath cough some chills. Patient's has a diagnoses of COVID. Denies any loss of smell or taste. No sore throat. Does feel exhausted. Decreased appetite. Patient's come back testing positive for COVID 19 pneumonia. Pulse ox on presentation was 83% Admitted with bilateral COVID 19 pneumonia, acute hypoxic respiratory failure. Started on IV Decadron and Lovenox. Pulmonary consulted. ACTEMRA-given on February 21. Today: On BiPAP. Short of breath. Eating-about 75- 100% Communicating. Up in chair. Subjective: 03/01/2021 This is a pleasant 65 years old female who presents with Covid pneumonia, she still have dyspnea with little cough but no chest pain. She has some diarrhea but no abdominal pain or vomiting. She still needs 15 L of oxygen via high flow nasal cannula. D-dimer today is slightly less 7.8, LDH slightly less at 1603 while C-reactive protein is normal at 0.6. She remains on dexamethasone, vitamin C, D and zinc. She is on Lovenox 60 mg twice daily and metformin and aspirin. Objective - Vital Signs Vital signs: Vital Signs Temp 97.7 F 03/01/21 14:00 Pulse 74 03/01/21 14:00 Resp 16 03/01/21 08:00 BP 116/72 03/01/21 14:00 Pulse Ox 84 L 03/01/21 14:00 Intake & Output 02/28/21 03/01/21 03/01/21 18:59 06:59 18:59 Intake Total 600 600 Output Total 1 2 1 Balance 599 -2 599 Intake: Oral 600 600 Output: Stool 1 2 1 Other: Voiding Method Toilet Toilet Toilet # Voids 4 1 # Bowel Movements 1 1 - Exam GENERAL: The patient is alert and oriented x3, not in any acute distress. Well developed, well nourished. HEENT: Pupils are round and equally reacting to light. EOMI. No scleral icterus. No conjunctival pallor. Normocephalic, atraumatic. No pharyngeal erythema. No thyromegaly. CARDIOVASCULAR: S1 and S2 present. No murmurs, rubs, or gallops. PULMONARY: Chest is clear to auscultation, no wheezing or crackles. ABDOMEN: Soft, nontender, nondistended, normoactive bowel sounds. No palpable organomegaly. MUSCULOSKELETAL: No joint swelling or deformity. EXTREMITIES: No cyanosis, clubbing, or pedal edema. NEUROLOGICAL: Gross neurological examination did not reveal any focal deficits. SKIN: No rashes. no petechiae. - Labs CBC & Chem 7: 02/18/21 05:30 02/19/21 06:39 Labs: Abnormal Lab Results - Last 24 Hours (Table) 02/28/21 02/28/21 03/01/21 Range/Units 17:04 20:03 06:43 D-Dimer 7.82 H (<0.60) mg/L FEU POC Glucose (mg/dL) 191 H 262 H (75-99) mg/dL Lactate Dehydrogenase (313-618) U/L 03/01/21 03/01/21 Range/Units 06:43 11:11 D-Dimer (<0.60) mg/L FEU POC Glucose (mg/dL) 188 H (75-99) mg/dL Lactate Dehydrogenase 1603 H (313-618) U/L Assessment and Plan Assessment: Bilateral: Pneumonia Acute hypoxic respiratory failure Increased inflammatory marker Increased d-dimer, low proliferative for PE per V/Q scan. No DVT per ultrasound of legs History of COPD, not in acute exacerbation Plan: This is a pleasant 65 years old female presents with cough and pneumonia. Continue with vitamin C, D and zinc, continue with dexamethasone and Lovenox. Pulmonary team on the case Labs and medication were reviewed.. Continue same treatment. Continue with symptomatic treatment. Resume home medication. Monitor lytes and vitals. DVT and GI prophylaxis. Further recommendationsas per clinical course of the patient DVT prophylaxis: Subcutaneous Lovenox GI Prophylaxis: Pepcid Prognosis is guarded
[2021-03-01 17:22] LABS: Glucose,Whole Blood 148 mg/dL (75-99)
[2021-03-01 20:52] LABS: Glucose,Whole Blood 224 mg/dL (75-99)
[2021-03-01] MEDS: PRAVASTATIN SODIUM 80 MG TAB PO SCH (20:58)
[2021-03-01] MEDS: ZOLPIDEM 5 MG TAB PO PRN (20:58)
[2021-03-01] MEDS: ASPIRIN 81 MG PO SCH (20:58)
[2021-03-01 23:06] LABS: Glucose,Whole Blood 245 mg/dL (75-99)
[2021-03-01] MEDS ORDERED: propofoL 100 ML IV ONE (23:26)
[2021-03-01 23:36] LABS: ABG Base Excess -14.8 mmol/L; ABG HCO3 16 mmol/L (21-25); ABG Oxygen Saturation 61.1 % (94-97); ABG PCO2 61 mmHg (35-45); ABG TCO2 18 mmol/L (19-24); Allen Test Performed? Yes
[2021-03-01 23:39] LABS: ABG PH 7.03 (7.35-7.45)
[2021-03-01 23:40] LABS: ABG PO2 50 mmHg (83-108)
[2021-03-01] MEDS ORDERED: SODIUM BICARB 8.4% 50 ML SYR (1 MEQ/ML) IV STA (23:41)
[2021-03-01] MEDS ORDERED: SODIUM BICARB 8.4% 50 ML SYR (1 MEQ/ML) ONE (23:43)
[2021-03-01] MEDS ORDERED: DEXTROSE 5% IN WATER 1,000 ML with SODIUM BICARB (1 MEQ/ML) 150 ML IV SCH (23:45)
--- NOTE | 2021-03-01 23:55 | XR ---
EXAMINATION TYPE: XR chest 1V portable DATE OF EXAM: 03/01/2021 COMPARISON: 02/27/2021 HISTORY: Cardiac arrest TECHNIQUE: Single view FINDINGS: The endotracheal tube is 2.5 cm from the irena. There is moderate pulmonary interstitial a nd airspace edema. There is nasogastric tube in the stomach. There are chest leads. Heart size is manan rly normal. Bony thorax is intact. There is no pneumothorax. IMPRESSION: There is moderate pulmonary edema which is increased compared to recent exam.
[2021-03-01 23:57] LABS: AST 293 U/L (14-36); African American GFR (CKD) 31 (>60 ml/min/1.73 sqM); Albumin/Globulin Ratio 1.2; Alkaline Phosphatase 216 U/L (38-126); Anion Gap 30 mmol/L; Blood Urea Nitrogen 44 mg/dL (7-17); Calcium 9.8 mg/dL (8.4-10.2); Chloride 98 mmol/L (98-107); Globulin 2.5 g/dL; Glucose 432 mg/dL (74-99); Magnesium 2.5 mg/dL (1.6-2.3); Non-African American GFR(CKD) 27 (>60 ml/min/1.73 sqM); Potassium 5.7 mmol/L (3.5-5.1); Sodium 136 mmol/L (137-145); Total Bilirubin 0.6 mg/dL (0.2-1.3); Total Protein 5.5 g/dL (6.3-8.2)
[2021-03-02 00:11] LABS: Carbon Dioxide 8 mmol/L (22-30)
[2021-03-02] MEDS ORDERED: FUROSEMIDE 10 MG/ML 4 ML VIAL IV STA (00:25)
[2021-03-02 00:27] LABS: ALT 222 U/L (4-34)
[2021-03-02] MEDS ORDERED: fentaNYL (PF). 1,000 MCG in SODIUM CHLORIDE 0.9% 80 ML IV SCH (00:45)
--- NOTE | 2021-03-02 00:50 | P.EN ---
code blue event , please refer to paper chart for exact sequence of events and medications given during the code patient had bradycardia and went into cardiopulmonary arrest, her initial rhythm showed PEA arrest. patient was given epi, intubated. ROSC achieved , and patient was transferred to the ICU. CXR confirmed placement of tube I reviewed the images, tube was about 3 cm above irena, no evidence of pleural effusion. there is diffuse patchy infilterates. labs ordered. to assess metabolic status and electrolytes. patient was given an amp of bicarb after reviewing ABG, patient will also be started on bicarb drip. 1 L bolus normal saline oxygenation remains in the 60s. peep was increased to 10. family notified, arrived at bed side primary team paged ICU attending will be notified by RN 35 minutes were spent in critical care time in the care of this patient
[2021-03-02] MEDS ORDERED: NOREPINEPHRINE 4 MG in SODIUM CHLORIDE 0.9% 250 ML IV SCH (02:30)
[2021-03-02 02:54] LABS: Appearance,Urine Cloudy (Clear); Bacteria,Urine Moderate /hpf; Bilirubin,Urine Negative (Negative); Blood,Urine Negative (Negative); Color,Urine Yellow; Glucose,Urine (UA) Negative (Negative); Hyaline Casts,Urine 1 /lpf (0-2); Ketones,Urine Negative (Negative); Leukocyte Esterase,Urine Negative (Negative); Mucus,Urine Rare /hpf; Nitrite,Urine Negative (Negative); PH, Urine 5.5 (5.0-8.0); Protein,Urine 1+ (Negative); RBC,Urine 4 /hpf (0-5); Specific Gravity,Urine 1.021 (1.001-1.035); Squamous Epithelial Cell,Urine 1 /hpf (0-4); Urobilinogen,Urine <2.0 mg/dL (<2.0); WBC,Urine 35 /hpf (0-5)
[2021-03-02 04:26] VITALS: TEMP 98.3
[2021-03-02] MEDS ORDERED: ATROPINE SULFATE 0.1 MG/ML 10ML SYRINGE ONE (04:39)
[2021-03-02 04:52] LABS: ABG Base Excess -2.2 mmol/L; ABG HCO3 28 mmol/L (21-25); ABG Oxygen Saturation 62.1 % (94-97); ABG TCO2 30 mmol/L (19-24); Allen Test Performed? Yes
[2021-03-02 04:53] LABS: Basophils # (A) 0.1 k/uL (0-0.2); Basophils % (A) 1 %; Eosinophils # (A) 0.1 k/uL (0-0.7); Eosinophils % (A) 0 %; HCT 48.5 % (34.0-46.0); HGB 14.6 gm/dL (11.4-16.0); Hypochromasia Moderate; Lymphocytes % (A) 4 %; MCH 28.9 pg (25.0-35.0); MCHC 30.1 g/dL (31.0-37.0); MCV 96.2 fL (80.0-100.0); Mean Platelet Volume 9.1; Monocytes # (A) 0.7 k/uL (0-1.0); Monocytes % (A) 3 %; Neutrophils # (A) 21.7 k/uL (1.3-7.7); Neutrophils % (A) 92 %; Platelet Count 207 k/uL (150-450); RBC 5.04 m/uL (3.80-5.40); RDW 13.8 % (11.5-15.5); WBC 23.7 k/uL (3.8-10.6)
[2021-03-02 04:54] LABS: ABG PH 7.09 (7.35-7.45)
[2021-03-02 04:55] LABS: ABG PCO2 91 mmHg (35-45); ABG PO2 46 mmHg (83-108)
[2021-03-02 05:08] LABS: Magnesium 2.1 mg/dL (1.6-2.3); Potassium 5.5 mmol/L (3.5-5.1); Total Bilirubin 0.5 mg/dL (0.2-1.3); Total Protein 5.6 g/dL (6.3-8.2)
[2021-03-02 06:20] VITALS: BP 65/30; PULSE 81; RESP 58
[2021-03-02] MEDS ORDERED: PANTOPRAZOLE 40 MG/10 ML VIAL IVP SCH (09:00)
--- NOTE | 2021-03-02 21:49 | P.DS ---
Providers Date of admission: 02/17/21 15:52 Attending physician: All Nichols Consults: 02/17/21 15:52 Consult Physician Urgent Consulting Provider: Rodger Martinez Reason/Comments: acute hypoxic resp failure, acute covid infection, hx lung cancer Do you want consulting provider notified?: Yes Primary care physician: Bobby Mcnally MD Hospital Course: Diagnoses: Status post PEA arrest. According Bilateral covid Pneumonia Acute hypoxic respiratory failure Increased inflammatory marker Increased d-dimer, low proliferative for PE per V/Q scan. No DVT per ultrasound of legs History of COPD, not in acute exacerbation code blue event , please refer to paper chart for exact sequence of events and medications given during the code Hospital course: This is a pleasant 65 years old female who was admitted to the hospital for open bilateral pneumonia and acute hypoxic respiratory failure, she needed high flow nasal cannula and I dose of oxygen up to 15 L at times.. Pulmonary/critical care team were following the case closely. She received multiple therapies including dexamethasone, vitamin C, D and zinc. As well as therapeutic dose of Lovenox 60 mg twice daily for elevated d-dimer. 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, please refer to nursing note for more detail Patient Condition at Discharge: Serious Plan - Discharge Summary Discharge Rx Participant: No New Discharge Prescriptions: No Action Aspirin 81 mg PO HS metFORMIN HCL [Glucophage] 500 mg PO BID Pravastatin Sodium [Pravachol] 80 mg PO HS Metoprolol Tartrate [Lopressor] 50 mg PO BID Cholecalciferol (Vitamin D3) [Vitamin D3 (5000 Iu)] 125 mcg PO DAILY Hydrocortisone [Cortef] 10 mg PO BID@0800,1500 Discharge Medication List Aspirin 81 mg PO HS 02/17/21 [History] Cholecalciferol (Vitamin D3) [Vitamin D3 (5000 Iu)] 125 mcg PO DAILY 02/17/21 [History] Hydrocortisone [Cortef] 10 mg PO BID@0800,1500 02/17/21 [History] Metoprolol Tartrate [Lopressor] 50 mg PO BID 02/17/21 [History] Pravastatin Sodium [Pravachol] 80 mg PO HS 02/17/21 [History] metFORMIN HCL [Glucophage] 500 mg PO BID 02/17/21 [History] Follow up Appointment(s)/Referral(s): Bobby Mcnally MD [Primary Care Provider] - 1-2 days Discharge Disposition: - Preliminary Cause of Preliminary Cause of : covid pneumonia
== END 2021-03-02 08:33 | disposition expired | DRG 208 ==
LOC: EC 13:22 → 4SSUR 15:52 → 6NMEDSUR 16:24 → 2SICU 03-01 23:19
PROVIDERS: ADMIT Hospitalist; ATTEND Hospitalist
PROC: 3E0333Z Introduction of Anti-inflammatory into Peripheral Vein, Percutaneous Approach (ICD-10-PCS; 2021-02-17)
PROC: 5A09457 Assistance with Respiratory Ventilation, 24-96 Consecutive Hours, Continuous Positive Airway Pressure (ICD-10-PCS; 2021-02-20)
PROC: XW033H5 Introduction of Tocilizumab into Peripheral Vein, Percutaneous Approach, New Technology Group 5 (ICD-10-PCS; 2021-02-21)
PROC: 0BH17EZ Insertion of Endotracheal Airway into Trachea, Via Natural or Artificial Opening (ICD-10-PCS; 2021-03-01)
PROC: 5A1935Z Respiratory Ventilation, Less than 24 Consecutive Hours (ICD-10-PCS; principal; 2021-03-02)
PROC: 3E033XZ Introduction of Vasopressor into Peripheral Vein, Percutaneous Approach (ICD-10-PCS; 2021-03-02)
DX: U07.1 COVID-19 (principal); J12.82 Pneumonia due to coronavirus disease 2019; J96.01 Acute respiratory failure with hypoxia; J44.0 Chronic obstructive pulmonary disease with (acute) lower respiratory infection; Z68.42 Body mass index [BMI] 45.0-49.9, adult; R04.2 Hemoptysis; E11.65 Type 2 diabetes mellitus with hyperglycemia; E66.01 Morbid (severe) obesity due to excess calories; Z85.118 Personal history of other malignant neoplasm of bronchus and lung; I46.8 Cardiac arrest due to other underlying condition; E78.5 Hyperlipidemia, unspecified; I10 Essential (primary) hypertension; Z87.891 Personal history of nicotine dependence; Z79.82 Long term (current) use of aspirin; Z79.899 Other long term (current) drug therapy; Z79.84 Long term (current) use of oral hypoglycemic drugs; Z79.01 Long term (current) use of anticoagulants; D72.810 Lymphocytopenia; T38.0X5A Adverse effect of glucocorticoids and synthetic analogues, initial encounter; Z90.2 Acquired absence of lung [part of]; Z88.1 Allergy status to other antibiotic agents; Z88.5 Allergy status to narcotic agent; Z92.21 Personal history of antineoplastic chemotherapy; R19.7 Diarrhea, unspecified
CPT/HCPCS: 36415; 36600; 71045; 78580; 80048; 80053; 81001; 82805; 83605; 83615; 83735; 84145; 85025; 85379; 85610; 85730; 86140; 87070; 87077; 87086; 87186; 87205; 87635; 93005; 93970; 94002; 94003; 94640; 94660; 94760; 96374; 96375; 99285